=== PATIENT | male | born 1965 ===

== ENCOUNTER 2018-06-24 03:59 | Inpatient (IN) ==
[2018-06-24] MEDS ORDERED: CEFEPIME 2,000 MG in SODIUM CHLORIDE 0.9% 100 ML IV STA (05:04)
[2018-06-24] MEDS ORDERED: ONDANSETRON 4 MG/2 ML VIAL IV PRN (09:41)
[2018-06-24] MEDS ORDERED: ACETAMINOPHEN 325 MG TABLET PO PRN (09:41)
[2018-06-24] MEDS ORDERED: GLUCAGON 1 MG VIAL IM PRN (09:47)
[2018-06-24] MEDS ORDERED: DEXTROSE 50% 25 GM/50 ML VIAL IV PRN (09:47)
[2018-06-24] MEDS: SODIUM CHLORIDE 0.9% 1,000 ML IV SCH ×2 (10:32→18:34)
[2018-06-24] MEDS: INSULIN LISPRO 100 UNIT/ML SUBCUT SCH ×5 (10:44→20:58)
[2018-06-24] MEDS: PANTOPRAZOLE 40 MG TABLET PO SCH (10:44)
[2018-06-24 10:50] LABS: Basophils % 0.4 % (0.0-0.8); Eosinophils # 0.3 10*3/uL (0.0-0.87); Eosinophils % 3.4 % (0.00-10.9); Hematocrit 35.5 VOL% (42.0-52.0); Hemoglobin 12.1 GM/DL (14.0-18.0); Immature Granulocytes % 0.5 %; Immature Granulocytes Absolute 0.05 #; Lymphocytes % 10.5 % (21.2-54.2); Mean Corpuscular HGB Conc 34.1 GM/DL (32-36); Mean Corpuscular Hemoglobin 31 PG (27-34); Mean Corpuscular Volume 89.6 FL (87-102); Mean Platelet Volume 11.6 FL (9.6-12.0); Monocytes # 0.6 10*3/uL (0.11-0.8); Monocytes % 6.4 % (1.7-12.7); Neutrophils # 7.7 10*3/uL (1.4-7.4); Neutrophils % 78.8 % (38.7-73.9); Platelet Count 209 T/CUMM (130-400); Red Blood Count 3.96 MC/CUMM (3.8-5.5); Red Cell Distribution Width 13.6 % (9.3-17.3); White Blood Count 9.8 T/CUMM (4-12)
[2018-06-24 11:24] LABS: Alanine Aminotransferase 12 U/L (16-61); Albumin 2.2 G/DL (3.4-5.0); Alkaline Phosphatase 81 U/L (45-117); Aspartate Amino Transferase 13 U/L (0-37); Bilirubin,Total < 0.39 MG/DL (0.2-1.0); Blood Urea Nitrogen 31 MG/DL (7-18); Calcium 8.4 MG/DL (8.5-10.1); Glucose 297 MG/DL (74-106); Osmolality,Calculated 300.1 MOS/KG (273-304); Potassium 3.9 MMOL/L (3.5-5.1); Sodium 142 MMOL/L (136-145); Total Protein 6.1 G/DL (6.4-8.3)
[2018-06-24 12:22] LABS: Apearance,Urine CLEAR (Clear); Bacteria,Urine Occasional /HPF (Few); Bilirubin,Urine Negative (Negative); Blood, Urine Small mg/dL (Negative); Glucose,Urine (UA) >=500 mg/dL (Negative); Ketones,Urine Negative (Negative); Mucus,Urine Occasional /LPF (Occasional); Nitrite,Urine Negative (Negative); Protein,Urine >=500 MG/DL; RBC,Urine 5 /HPF (0-4); Squamous Epithelial Cell,Urine Occasional /HPF (0-10); Urine Color Straw (Yellow); Urine Specific Gravity 1.011 (1.001-1.035); Urine Urobilinogen < 2.0 EU/DL (0.2-1.0); WBC,Urine 20 /HPF (0-6)
[2018-06-24] MEDS: sitaGLIPtin 25 MG TABLET PO SCH (13:25)
[2018-06-24] MEDS: ENOXAPARIN 30 MG/0.3 ML SYRINGE SUBCUT SCH (13:26)
[2018-06-24] MEDS: INSULIN GLARGINE 100 UNIT/ML SUBCUT SCH ×2 (13:26→20:56)
[2018-06-24] MEDS: MORPHINE 4 MG/1 ML VIAL IV PRN ×2 (13:29→22:08)
[2018-06-24] MEDS: CEFEPIME 2,000 MG in SYRINGE 1 EACH IV SCH (18:30)
[2018-06-24] MEDS ORDERED: hydrALAZINE 20 MG/1 ML VIAL IV PRN (20:24)
[2018-06-24] MEDS: CLOTRIMAZOLE/BETAMETHASONE CREAM 15 GM TUBE TOP SCH (20:58)
[2018-06-24] MEDS: SIMVASTATIN 40 MG TABLET PO SCH (20:58)
[2018-06-25] MEDS: SODIUM CHLORIDE 0.9% 1,000 ML IV SCH (01:50)
[2018-06-25 03:33] LABS: Basophils # 0.1 10*3/uL (0.0-0.2); Basophils % 0.5 % (0.0-0.8); Eosinophils # 0.3 10*3/uL (0.0-0.87); Eosinophils % 3.4 % (0.00-10.9); Hematocrit 32.9 VOL% (42.0-52.0); Hemoglobin 11.4 GM/DL (14.0-18.0); Immature Granulocytes % 0.5 %; Immature Granulocytes Absolute 0.05 #; Lymphocytes # 1.4 10*3/uL (1.4-4.0); Lymphocytes % 13.5 % (21.2-54.2); Mean Corpuscular HGB Conc 34.7 GM/DL (32-36); Mean Corpuscular Hemoglobin 31 PG (27-34); Mean Corpuscular Volume 88.7 FL (87-102); Mean Platelet Volume 11.6 FL (9.6-12.0); Monocytes # 0.7 10*3/uL (0.11-0.8); Monocytes % 6.8 % (1.7-12.7); Neutrophils # 7.6 10*3/uL (1.4-7.4); Neutrophils % 75.3 % (38.7-73.9); Platelet Count 188 T/CUMM (130-400); Red Blood Count 3.71 MC/CUMM (3.8-5.5); Red Cell Distribution Width 13.8 % (9.3-17.3); White Blood Count 10.1 T/CUMM (4-12)
[2018-06-25 04:13] LABS: Calcium 8.2 MG/DL (8.5-10.1); Osmolality,Calculated 290.1 MOS/KG (273-304); Potassium 3.5 MMOL/L (3.5-5.1); Risk Ratio 3.48; VLDL CHOLESTEROL 23.2 MG/DL
[2018-06-25] MEDS: CEFEPIME 2,000 MG in SYRINGE 1 EACH IV SCH ×2 (05:40→17:30)
[2018-06-25] MEDS: MORPHINE 4 MG/1 ML VIAL IV PRN ×3 (09:38→21:12)
[2018-06-25] MEDS: INSULIN GLARGINE 100 UNIT/ML SUBCUT SCH ×2 (09:38→20:54)
[2018-06-25] MEDS: LUBIPROSTONE 24 MCG CAPSULE PO SCH (09:39)
[2018-06-25] MEDS: sitaGLIPtin 25 MG TABLET PO SCH (09:39)
[2018-06-25] MEDS: FENOFIBRATE 145 MG TABLET PO SCH (09:39)
[2018-06-25] MEDS: PANTOPRAZOLE 40 MG TABLET PO SCH (09:39)
[2018-06-25] MEDS: ASPIRIN EC 81 MG TABLET PO SCH (09:40)
[2018-06-25] MEDS: CHLORTHALIDONE 25 MG TABLET PO SCH (09:44)
[2018-06-25] MEDS: INSULIN LISPRO 100 UNIT/ML SUBCUT SCH ×6 (09:45→20:56)
[2018-06-25] MEDS: CLOTRIMAZOLE/BETAMETHASONE CREAM 15 GM TUBE TOP SCH ×2 (09:53→20:57)
[2018-06-25] MEDS ORDERED: NICOTINE 21 MG/24 HR PATCH TRANSDERM PRN (10:14)
[2018-06-25] MEDS: ENOXAPARIN 30 MG/0.3 ML SYRINGE SUBCUT SCH (12:10)
[2018-06-25] MEDS: amLODIPine 5 MG TABLET PO SCH ×2 (12:10→20:51)
[2018-06-25] MEDS: SIMVASTATIN 40 MG TABLET PO SCH (20:51)
[2018-06-26] MEDS: SODIUM CHLORIDE 0.9% 1,000 ML IV SCH ×4 (00:11→18:40)
[2018-06-26] MEDS: MORPHINE 4 MG/1 ML VIAL IV PRN (03:33)
[2018-06-26 05:48] LABS: Basophils % 0.4 % (0.0-0.8); Eosinophils # 0.3 10*3/uL (0.0-0.87); Eosinophils % 2.2 % (0.00-10.9); Hematocrit 32.6 VOL% (42.0-52.0); Immature Granulocytes % 0.5 %; Immature Granulocytes Absolute 0.06 #; Lymphocytes # 1.2 10*3/uL (1.4-4.0); Lymphocytes % 10.8 % (21.2-54.2); Mean Corpuscular HGB Conc 33.7 GM/DL (32-36); Mean Corpuscular Hemoglobin 30 PG (27-34); Mean Corpuscular Volume 89.8 FL (87-102); Mean Platelet Volume 11.7 FL (9.6-12.0); Monocytes # 0.9 10*3/uL (0.11-0.8); Monocytes % 7.7 % (1.7-12.7); Neutrophils # 8.8 10*3/uL (1.4-7.4); Neutrophils % 78.4 % (38.7-73.9); Platelet Count 184 T/CUMM (130-400); Red Blood Count 3.63 MC/CUMM (3.8-5.5); Red Cell Distribution Width 13.3 % (9.3-17.3); White Blood Count 11.2 T/CUMM (4-12)
[2018-06-26] MEDS: CEFEPIME 2,000 MG in SYRINGE 1 EACH IV SCH ×2 (05:59→21:55)
[2018-06-26 06:05] LABS: Calcium 7.7 MG/DL (8.5-10.1); Potassium 3.1 MMOL/L (3.5-5.1)
[2018-06-26] MEDS ORDERED: ceFAZolin 2,000 MG in SYRINGE 1 EACH IV ONE (06:30)
[2018-06-26] MEDS ORDERED: ceFAZolin 2,000 MG in PREMIX 1 EACH IV ONE (07:30)
[2018-06-26] MEDS: INSULIN LISPRO 100 UNIT/ML SUBCUT SCH ×6 (07:50→22:46)
[2018-06-26] MEDS ORDERED: ROPIVACAINE 0.5% 30 ML VIAL ONE (07:51)
[2018-06-26] MEDS ORDERED: PROPOFOL 200 MG/20 ML VIAL IV ONE (08:55)
[2018-06-26] MEDS ORDERED: SEVOFLURANE 1 UNIT/15 MINUTE INH ONE (08:55)
[2018-06-26] MEDS ORDERED: ONDANSETRON 4 MG/2 ML VIAL ONE ×2 (08:55→08:57)
[2018-06-26] MEDS ORDERED: fentaNYL 100 MCG/2 ML VIAL ONE (08:55)
[2018-06-26] MEDS ORDERED: HYDROmorphone 2 MG/1 ML VIAL ONE (08:57)
[2018-06-26] MEDS ORDERED: oxyCODONE/ACETAMINOPHEN 5-325 MG TABLET PO PRN (08:58)
[2018-06-26] MEDS ORDERED: ENOXAPARIN 40 MG/0.4 ML SYRINGE SUBCUT SCH (09:00)
[2018-06-26] MEDS: HYDROmorphone 2 MG/1 ML VIAL IV PRN ×4 (09:00→09:25)
[2018-06-26] MEDS ORDERED: ONDANSETRON 4 MG/2 ML VIAL IV PRN (09:03)
[2018-06-26] MEDS: LUBIPROSTONE 24 MCG CAPSULE PO SCH (11:04)
[2018-06-26] MEDS: PANTOPRAZOLE 40 MG TABLET PO SCH (11:04)
[2018-06-26] MEDS: amLODIPine 5 MG TABLET PO SCH ×2 (11:05→22:19)
[2018-06-26] MEDS: oxyCODONE/ACETAMINOPHEN 5-325 MG TABLET PO PRN ×3 (11:05→22:26)
[2018-06-26] MEDS: CHLORTHALIDONE 25 MG TABLET PO SCH (11:06)
[2018-06-26] MEDS: hydrALAZINE 10 MG TABLET PO SCH ×2 (11:07→22:19)
[2018-06-26] MEDS: ASPIRIN EC 81 MG TABLET PO SCH (11:10)
[2018-06-26] MEDS ORDERED: POTASSIUM CHLORIDE 20 MEQ TABLET PO ONE (11:30)
[2018-06-26] MEDS: INSULIN GLARGINE 100 UNIT/ML SUBCUT SCH ×2 (11:40→22:26)
[2018-06-26] MEDS: FENOFIBRATE 145 MG TABLET PO SCH (13:16)
[2018-06-26] MEDS: sitaGLIPtin 25 MG TABLET PO SCH (13:16)
[2018-06-26] MEDS: CLOTRIMAZOLE/BETAMETHASONE CREAM 15 GM TUBE TOP SCH ×2 (13:19→22:20)
[2018-06-26] MEDS: SIMVASTATIN 40 MG TABLET PO SCH (22:19)
[2018-06-27] MEDS: SODIUM CHLORIDE 0.9% 1,000 ML IV SCH (04:53)
[2018-06-27] MEDS: oxyCODONE/ACETAMINOPHEN 5-325 MG TABLET PO PRN ×3 (06:34→21:39)
[2018-06-27 07:06] LABS: Basophils % 0.3 % (0.0-0.8); Eosinophils # 0.3 10*3/uL (0.0-0.87); Eosinophils % 1.9 % (0.00-10.9); Hematocrit 32.6 VOL% (42.0-52.0); Hemoglobin 10.9 GM/DL (14.0-18.0); Immature Granulocytes % 0.5 %; Immature Granulocytes Absolute 0.07 #; Lymphocytes # 1.2 10*3/uL (1.4-4.0); Lymphocytes % 8.7 % (21.2-54.2); Mean Corpuscular HGB Conc 33.4 GM/DL (32-36); Mean Corpuscular Hemoglobin 30 PG (27-34); Mean Corpuscular Volume 89.8 FL (87-102); Mean Platelet Volume 11.4 FL (9.6-12.0); Monocytes # 0.9 10*3/uL (0.11-0.8); Monocytes % 6.8 % (1.7-12.7); Neutrophils % 81.8 % (38.7-73.9); Platelet Count 187 T/CUMM (130-400); Red Blood Count 3.63 MC/CUMM (3.8-5.5); Red Cell Distribution Width 13.5 % (9.3-17.3); White Blood Count 13.5 T/CUMM (4-12)
[2018-06-27 07:35] LABS: Calcium 7.3 MG/DL (8.5-10.1); Osmolality,Calculated 280.8 MOS/KG (273-304); Potassium 3.4 MMOL/L (3.5-5.1)
[2018-06-27] MEDS: INSULIN LISPRO 100 UNIT/ML SUBCUT SCH ×6 (08:22→22:08)
[2018-06-27] MEDS: PANTOPRAZOLE 40 MG TABLET PO SCH (08:23)
[2018-06-27] MEDS: sitaGLIPtin 25 MG TABLET PO SCH (08:23)
[2018-06-27] MEDS: INSULIN GLARGINE 100 UNIT/ML SUBCUT SCH ×2 (08:23→22:01)
[2018-06-27] MEDS: hydrALAZINE 10 MG TABLET PO SCH ×2 (08:23→21:40)
[2018-06-27] MEDS: FENOFIBRATE 145 MG TABLET PO SCH (08:24)
[2018-06-27] MEDS: CHLORTHALIDONE 25 MG TABLET PO SCH (08:24)
[2018-06-27] MEDS: CEFEPIME 2,000 MG in SYRINGE 1 EACH IV SCH ×2 (08:24→21:30)
[2018-06-27] MEDS: amLODIPine 5 MG TABLET PO SCH ×2 (08:24→21:40)
[2018-06-27] MEDS: ASPIRIN EC 81 MG TABLET PO SCH (08:24)
[2018-06-27] MEDS: LUBIPROSTONE 24 MCG CAPSULE PO SCH (08:24)
[2018-06-27] MEDS: DOCUSATE SODIUM 100 MG CAPSULE PO PRN ×2 (08:24→21:40)
[2018-06-27] MEDS: CLOTRIMAZOLE/BETAMETHASONE CREAM 15 GM TUBE TOP SCH ×2 (08:28→22:04)
[2018-06-27] MEDS ORDERED: POTASSIUM CHLORIDE 20 MEQ TABLET PO ONE (12:30)
[2018-06-27] MEDS ORDERED: VANCOMYCIN INJ 1,500 MG in SODIUM CHLORIDE 0.9% 500 ML IV ONE (12:30)
[2018-06-27] MEDS ORDERED: BISACODYL 10 MG SUPP RECTAL ONE (18:27)
[2018-06-27] MEDS: LACTULOSE 20 GM/30 ML UDCUP PO PRN (18:35)
[2018-06-27] MEDS: SIMVASTATIN 40 MG TABLET PO SCH (21:40)
[2018-06-28] MEDS ORDERED: ALUMINUM/MAGNES/SIMETH MAX STR 30 ML UDCUP PO PRN (01:57)
[2018-06-28] MEDS: INSULIN LISPRO 100 UNIT/ML SUBCUT SCH ×3 (07:45→12:15)
[2018-06-28] MEDS: amLODIPine 5 MG TABLET PO SCH (10:20)
[2018-06-28] MEDS: sitaGLIPtin 25 MG TABLET PO SCH (10:20)
[2018-06-28] MEDS: CHLORTHALIDONE 25 MG TABLET PO SCH (10:20)
[2018-06-28] MEDS: hydrALAZINE 10 MG TABLET PO SCH (10:20)
[2018-06-28] MEDS: DOCUSATE SODIUM 100 MG CAPSULE PO PRN (10:20)
[2018-06-28] MEDS: LUBIPROSTONE 24 MCG CAPSULE PO SCH (10:20)
[2018-06-28] MEDS: PANTOPRAZOLE 40 MG TABLET PO SCH (10:20)
[2018-06-28] MEDS: FENOFIBRATE 145 MG TABLET PO SCH (10:20)
[2018-06-28] MEDS: INSULIN GLARGINE 100 UNIT/ML SUBCUT SCH (10:20)
[2018-06-28] MEDS: LACTULOSE 20 GM/30 ML UDCUP PO PRN (10:21)
[2018-06-28] MEDS: ASPIRIN EC 81 MG TABLET PO SCH (10:21)
[2018-06-28] MEDS: CEFEPIME 2,000 MG in SYRINGE 1 EACH IV SCH (10:21)
[2018-06-28] MEDS: CLOTRIMAZOLE/BETAMETHASONE CREAM 15 GM TUBE TOP SCH (10:22)
[2018-06-28 11:43] VITALS: BP 158/83
== END 2018-06-28 14:38 | disposition home or self-care (01) | DRG 728 ==
LOC: EDUNIT# → EDBD → N.ED 03:59 → N.EDINP 08:44 → N.2E 10:06
PROVIDERS: ADMIT Internal Medicine; ATTEND Internal Medicine

== ENCOUNTER 2019-02-03 23:20 | Inpatient (IN) ==
[2019-02-04] MEDS ORDERED: ONDANSETRON 4 MG/2 ML VIAL IV PRN (02:25)
[2019-02-04] MEDS ORDERED: ZALEPLON 5 MG CAPSULE PO PRN (02:25)
[2019-02-04] MEDS ORDERED: GLUCAGON 1 MG VIAL IM PRN (02:30)
[2019-02-04] MEDS ORDERED: DEXTROSE 50% 25 GM/50 ML VIAL IV PRN (02:30)
[2019-02-04] MEDS: SODIUM CHLORIDE 0.9% 1,000 ML IV SCH (02:52)
[2019-02-04 02:57] LABS: Basophils % 0.2 % (0.0-0.8); Eosinophils # 0.3 10*3/uL (0.0-0.87); Hematocrit 31.2 VOL% (42.0-52.0); Immature Granulocytes % 0.8 %; Immature Granulocytes Absolute 0.14 #; Lymphocytes # 1.7 10*3/uL (1.4-4.0); Lymphocytes % 10.4 % (21.2-54.2); Mean Corpuscular HGB Conc 32.1 GM/DL (32-36); Mean Corpuscular Hemoglobin 30 PG (27-34); Mean Corpuscular Volume 92.6 FL (87-102); Mean Platelet Volume 11.1 FL (9.6-12.0); Neutrophils # 13.3 10*3/uL (1.4-7.4); Neutrophils % 80.6 % (38.7-73.9); Platelet Count 216 T/CUMM (130-400); Red Blood Count 3.37 MC/CUMM (3.8-5.5); Red Cell Distribution Width 14.5 % (9.3-17.3); White Blood Count 16.5 T/CUMM (4-12)
[2019-02-04 03:16] LABS: Albumin 1.1 G/DL (3.4-5.0); Bilirubin,Total 0.4 MG/DL (0.2-1.0); Osmolality,Calculated 287.4 MOS/KG (273-304); Total Protein 4.4 G/DL (6.4-8.3)
[2019-02-04] MEDS: PIPERACILLIN/TAZOBACTAM 3,375 MG in SODIUM CHLORIDE 0.9% 100 ML IV SCH ×2 (04:42→17:06)
[2019-02-04] MEDS ORDERED: POTASSIUM CHLORIDE 20 MEQ TABLET PO ONE ×2 (06:38→11:00)
[2019-02-04] MEDS: INSULIN LISPRO 100 UNIT/ML SUBCUT SCH ×6 (08:36→20:54)
[2019-02-04] MEDS: FENOFIBRATE 145 MG TABLET PO SCH (09:18)
[2019-02-04] MEDS: PANTOPRAZOLE 40 MG TABLET PO SCH (09:19)
[2019-02-04] MEDS: METOPROLOL SUCCINATE XL 50 MG TABLET PO SCH (09:19)
[2019-02-04] MEDS: ASPIRIN EC 81 MG TABLET PO SCH (09:19)
[2019-02-04] MEDS: GABAPENTIN 300 MG CAPSULE PO SCH (09:19)
[2019-02-04] MEDS: amLODIPine 5 MG TABLET PO SCH ×2 (09:19→20:53)
[2019-02-04] MEDS: POTASSIUM CHLORIDE 20 MEQ TABLET PO PRN ×2 (09:19→14:59)
[2019-02-04] MEDS: sitaGLIPtin 25 MG TABLET PO SCH (09:19)
[2019-02-04] MEDS: LUBIPROSTONE 24 MCG CAPSULE PO SCH (09:19)
[2019-02-04] MEDS: ACETAMINOPHEN 325 MG TABLET PO PRN ×2 (09:26→17:16)
[2019-02-04] MEDS ORDERED: MAGNESIUM SULF RIDER 4 GM in PREMIX 1 EACH IV PRN (09:26)
[2019-02-04] MEDS ORDERED: MAGNESIUM SULF RIDER 2 GM in PREMIX 1 EACH IV PRN (09:26)
[2019-02-04 13:11] LABS: Apearance,Urine CLEAR (Clear); Bacteria,Urine Occasional /HPF (Few); Bilirubin,Urine Negative (Negative); Blood, Urine Small mg/dL (Negative); Glucose,Urine (UA) >=500 mg/dL (Negative); Ketones,Urine Negative (Negative); Mucus,Urine Occasional /LPF (Occasional); Nitrite,Urine Negative (Negative); Protein,Urine >=500 MG/DL; RBC,Urine 1 /HPF (0-4); Urine Color Yellow (Yellow); Urine Specific Gravity 1.021 (1.001-1.035); Urine Urobilinogen < 2.0 EU/DL (0.2-1.0); WBC,Urine 7 /HPF (0-6)
[2019-02-04] MEDS: SIMVASTATIN 40 MG TABLET PO SCH (20:53)
[2019-02-04] MEDS: GABAPENTIN 600 MG TABLET PO SCH (20:53)
[2019-02-05] MEDS: SODIUM CHLORIDE 0.9% 1,000 ML IV SCH (02:45)
[2019-02-05 04:58] LABS: Basophils # 0.1 10*3/uL (0.0-0.2); Basophils % 0.3 % (0.0-0.8); Eosinophils # 0.3 10*3/uL (0.0-0.87); Hematocrit 29.6 VOL% (42.0-52.0); Hemoglobin 9.4 GM/DL (14.0-18.0); Immature Granulocytes % 1.1 %; Immature Granulocytes Absolute 0.16 #; Lymphocytes # 1.6 10*3/uL (1.4-4.0); Lymphocytes % 11.4 % (21.2-54.2); Mean Corpuscular HGB Conc 31.8 GM/DL (32-36); Mean Corpuscular Hemoglobin 30 PG (27-34); Mean Corpuscular Volume 93.7 FL (87-102); Mean Platelet Volume 10.9 FL (9.6-12.0); Monocytes % 6.7 % (1.7-12.7); Neutrophils # 11.3 10*3/uL (1.4-7.4); Neutrophils % 78.5 % (38.7-73.9); Platelet Count 220 T/CUMM (130-400); Red Blood Count 3.16 MC/CUMM (3.8-5.5); Red Cell Distribution Width 14.5 % (9.3-17.3); White Blood Count 14.4 T/CUMM (4-12)
[2019-02-05] MEDS: PIPERACILLIN/TAZOBACTAM 3,375 MG in SODIUM CHLORIDE 0.9% 100 ML IV SCH (05:02)
[2019-02-05 05:25] LABS: Calcium 7.1 MG/DL (8.5-10.1); Osmolality,Calculated 285.5 MOS/KG (273-304); Potassium 3.6 MMOL/L (3.5-5.1)
[2019-02-05] MEDS: INSULIN LISPRO 100 UNIT/ML SUBCUT SCH ×6 (08:00→20:36)
[2019-02-05] MEDS: LUBIPROSTONE 24 MCG CAPSULE PO SCH ×2 (08:40→12:20)
[2019-02-05] MEDS: ASPIRIN EC 81 MG TABLET PO SCH ×2 (08:40→12:20)
[2019-02-05] MEDS: PANTOPRAZOLE 40 MG TABLET PO SCH ×2 (08:41→12:20)
[2019-02-05] MEDS: sitaGLIPtin 25 MG TABLET PO SCH (08:41)
[2019-02-05] MEDS: GABAPENTIN 300 MG CAPSULE PO SCH ×2 (08:41→12:20)
[2019-02-05] MEDS: FENOFIBRATE 145 MG TABLET PO SCH ×2 (08:41→12:20)
[2019-02-05] MEDS: MORPHINE 4 MG/1 ML VIAL IV PRN (10:34)
[2019-02-05] MEDS: amLODIPine 5 MG TABLET PO SCH ×2 (12:20→20:37)
[2019-02-05] MEDS: METOPROLOL SUCCINATE XL 50 MG TABLET PO SCH (12:20)
[2019-02-05] MEDS: POTASSIUM CHLORIDE 20 MEQ TABLET PO PRN (12:20)
[2019-02-05] MEDS: CEFTAROLINE 300 MG in SODIUM CHLORIDE 0.9% 100 ML IV SCH ×2 (12:21→22:20)
[2019-02-05] MEDS ORDERED: SODIUM BICARB INJ 100 MEQ in STERILE WATER INJ 400 ML IV ONE (13:02)
[2019-02-05] MEDS: GABAPENTIN 600 MG TABLET PO SCH (20:37)
[2019-02-05] MEDS: SIMVASTATIN 40 MG TABLET PO SCH (20:37)
[2019-02-06 04:40] LABS: Basophils # 0.1 10*3/uL (0.0-0.2); Basophils % 0.4 % (0.0-0.8); Eosinophils # 0.3 10*3/uL (0.0-0.87); Eosinophils % 2.2 % (0.00-10.9); Hematocrit 28.5 VOL% (42.0-52.0); Hemoglobin 9.2 GM/DL (14.0-18.0); Immature Granulocytes % 0.7 %; Immature Granulocytes Absolute 0.08 #; Lymphocytes # 1.9 10*3/uL (1.4-4.0); Lymphocytes % 16.1 % (21.2-54.2); Mean Corpuscular HGB Conc 32.3 GM/DL (32-36); Mean Corpuscular Hemoglobin 30 PG (27-34); Mean Corpuscular Volume 93.1 FL (87-102); Monocytes # 0.8 10*3/uL (0.11-0.8); Monocytes % 6.7 % (1.7-12.7); Neutrophils # 8.7 10*3/uL (1.4-7.4); Neutrophils % 73.9 % (38.7-73.9); Platelet Count 242 T/CUMM (130-400); Red Blood Count 3.06 MC/CUMM (3.8-5.5); Red Cell Distribution Width 14.1 % (9.3-17.3); White Blood Count 11.7 T/CUMM (4-12)
[2019-02-06 05:04] LABS: Calcium 7.1 MG/DL (8.5-10.1); Osmolality,Calculated 290.4 MOS/KG (273-304); Potassium 3.3 MMOL/L (3.5-5.1)
[2019-02-06] MEDS: INSULIN LISPRO 100 UNIT/ML SUBCUT SCH ×5 (07:49→20:58)
[2019-02-06 08:14] LABS: Albumin 0.9 G/DL (3.4-5.0); Total Protein 4.5 G/DL (6.4-8.3)
[2019-02-06] MEDS: sitaGLIPtin 25 MG TABLET PO SCH (09:06)
[2019-02-06] MEDS: LUBIPROSTONE 24 MCG CAPSULE PO SCH (09:06)
[2019-02-06] MEDS: FENOFIBRATE 145 MG TABLET PO SCH (09:06)
[2019-02-06] MEDS: METOPROLOL SUCCINATE XL 50 MG TABLET PO SCH (09:07)
[2019-02-06] MEDS: PANTOPRAZOLE 40 MG TABLET PO SCH (09:07)
[2019-02-06] MEDS: amLODIPine 5 MG TABLET PO SCH ×2 (09:07→20:54)
[2019-02-06] MEDS: GABAPENTIN 300 MG CAPSULE PO SCH (09:08)
[2019-02-06] MEDS: ASPIRIN EC 81 MG TABLET PO SCH (09:08)
[2019-02-06] MEDS: INSULIN GLARGINE 100 UNIT/ML SUBCUT SCH (10:23)
[2019-02-06] MEDS: SODIUM CHLORIDE 0.9% 1,000 ML IV SCH ×2 (11:05→11:06)
[2019-02-06 11:57] LABS: Protein/Creatinine Ratio,Urine 16.5 RATIO
[2019-02-06] MEDS: CEFTAROLINE 300 MG in SODIUM CHLORIDE 0.9% 100 ML IV SCH ×2 (12:03→22:37)
[2019-02-06 12:10] LABS: Apearance,Urine CLEAR (Clear); Bacteria,Urine Occasional /HPF (Few); Bilirubin,Urine Negative (Negative); Blood, Urine Small mg/dL (Negative); Glucose,Urine (UA) >=500 mg/dL (Negative); Ketones,Urine 5 mg/dL (Negative); Mucus,Urine Occasional /LPF (Occasional); Nitrite,Urine Negative (Negative); Protein,Urine >=500 MG/DL; RBC,Urine 1 /HPF (0-4); Squamous Epithelial Cell,Urine Occasional /HPF (0-10); Urine Color Yellow (Yellow); Urine Specific Gravity 1.008 (1.001-1.035); Urine Urobilinogen < 2.0 EU/DL (0.2-1.0); WBC,Urine 5 /HPF (0-6)
[2019-02-06] MEDS: POTASSIUM CHLORIDE 20 MEQ TABLET PO PRN ×3 (12:41→20:54)
[2019-02-06] MEDS: MORPHINE 4 MG/1 ML VIAL IV PRN (19:38)
[2019-02-06] MEDS: GABAPENTIN 600 MG TABLET PO SCH (20:54)
[2019-02-06] MEDS: SIMVASTATIN 40 MG TABLET PO SCH (20:54)
[2019-02-07] MEDS: MORPHINE 4 MG/1 ML VIAL IV PRN ×2 (01:16→05:49)
[2019-02-07 04:25] LABS: Basophils # 0.1 10*3/uL (0.0-0.2); Basophils % 0.5 % (0.0-0.8); Eosinophils # 0.4 10*3/uL (0.0-0.87); Eosinophils % 3.5 % (0.00-10.9); Hematocrit 28.4 VOL% (42.0-52.0); Immature Granulocytes % 0.9 %; Immature Granulocytes Absolute 0.09 #; Lymphocytes # 1.6 10*3/uL (1.4-4.0); Mean Corpuscular HGB Conc 31.7 GM/DL (32-36); Mean Corpuscular Hemoglobin 30 PG (27-34); Mean Corpuscular Volume 93.1 FL (87-102); Mean Platelet Volume 10.8 FL (9.6-12.0); Monocytes # 0.8 10*3/uL (0.11-0.8); Monocytes % 7.5 % (1.7-12.7); Neutrophils # 7.1 10*3/uL (1.4-7.4); Neutrophils % 71.6 % (38.7-73.9); Platelet Count 257 T/CUMM (130-400); Red Blood Count 3.05 MC/CUMM (3.8-5.5); Red Cell Distribution Width 14.1 % (9.3-17.3)
[2019-02-07 04:58] LABS: Calcium 7.6 MG/DL (8.5-10.1); Osmolality,Calculated 291.1 MOS/KG (273-304); Potassium 3.5 MMOL/L (3.5-5.1)
[2019-02-07] MEDS: INSULIN LISPRO 100 UNIT/ML SUBCUT SCH ×2 (07:02→11:46)
[2019-02-07 08:12] LABS: Albumin (UPER) 285.6 MG/DL; Albumin (UPER) Rel% 46.9 %; Alpha 1 (UPER) 80.4 MG/DL; Alpha 1 (UPER) Rel% 13.2 %; Alpha 2 (UPER) 76.1 MG/DL; Alpha 2 (UPER) Rel % 12.5 %; Beta (UPER) Rel % 15.1 %; Gamma (UPER) 74.9 MG/DL
[2019-02-07 08:13] LABS: Gamma (UPER) Rel % 12.3 %
[2019-02-07] MEDS: INSULIN GLARGINE 100 UNIT/ML SUBCUT SCH (09:12)
[2019-02-07] MEDS: LUBIPROSTONE 24 MCG CAPSULE PO SCH (09:13)
[2019-02-07] MEDS: FENOFIBRATE 145 MG TABLET PO SCH (09:13)
[2019-02-07] MEDS: METOPROLOL SUCCINATE XL 50 MG TABLET PO SCH (09:13)
[2019-02-07] MEDS: PANTOPRAZOLE 40 MG TABLET PO SCH (09:13)
[2019-02-07] MEDS: amLODIPine 5 MG TABLET PO SCH (09:13)
[2019-02-07] MEDS: GABAPENTIN 300 MG CAPSULE PO SCH (09:13)
[2019-02-07] MEDS: ASPIRIN EC 81 MG TABLET PO SCH (09:13)
[2019-02-07 11:14] VITALS: BP 134/77
[2019-02-07] MEDS: CEFTAROLINE 300 MG in SODIUM CHLORIDE 0.9% 100 ML IV SCH (11:45)
== END 2019-02-07 15:08 | disposition home or self-care (01) | DRG 988 ==
LOC: SUATTDRO 02-04 01:06 → N.5E 02-04 01:06
PROVIDERS: ADMIT Internal Medicine; ATTEND Internal Medicine

== ENCOUNTER 2019-06-08 20:40 | Inpatient (IN) ==
[2019-06-08] MEDS ORDERED: CEFEPIME 2,000 MG in SODIUM CHLORIDE 0.9% 100 ML IV STA (20:58)
[2019-06-08] MEDS ORDERED: SODIUM CHLORIDE 0.9% 1,000 ML IV STA (20:58)
[2019-06-08 22:17] LABS: Basophils % 0.4 % (0.0-0.8); Eosinophils # 0.2 10*3/uL (0.0-0.87); Eosinophils % 2.4 % (0.00-10.9); Hematocrit 29.5 VOL% (42.0-52.0); Hemoglobin 9.2 GM/DL (14.0-18.0); Immature Granulocytes % 0.6 %; Immature Granulocytes Absolute 0.06 #; Lymphocytes # 1.2 10*3/uL (1.4-4.0); Lymphocytes % 11.6 % (21.2-54.2); Mean Corpuscular HGB Conc 31.2 GM/DL (32-36); Mean Corpuscular Volume 92.8 FL (87-102); Mean Platelet Volume 11.1 FL (9.6-12.0); Monocytes % 6.3 % (1.7-12.7); Neutrophils % 78.7 % (38.7-73.9); Platelet Count 198 T/CUMM (130-400); Red Blood Count 3.18 MC/CUMM (3.8-5.5); Red Cell Distribution Width 14.3 % (9.3-17.3)
[2019-06-08 22:27] LABS: Apearance,Urine CLEAR (Clear); Bacteria,Urine Occasional /HPF (Few); Bilirubin,Urine Negative (Negative); Blood, Urine Small mg/dL (Negative); Glucose,Urine (UA) >=500 mg/dL (Negative); Ketones,Urine Negative (Negative); Mucus,Urine Occasional /LPF (Occasional); Nitrite,Urine Negative (Negative); Protein,Urine >=500 MG/DL; RBC,Urine 5 /HPF (0-4); Squamous Epithelial Cell,Urine Occasional /HPF (0-10); Urine Color Straw (Yellow); Urine Specific Gravity 1.012 (1.001-1.035); Urine Urobilinogen < 2.0 EU/DL (0.2-1.0); WBC,Urine 8 /HPF (0-6)
[2019-06-08 22:36] LABS: Albumin 1.7 G/DL (3.4-5.0); Bilirubin,Total 0.4 MG/DL (0.2-1.0); Calcium 7.2 MG/DL (8.5-10.1); Osmolality,Calculated 313.3 MOS/KG (273-304); Total Protein 5.9 G/DL (6.4-8.3)
[2019-06-09] MEDS ORDERED: DEXTROSE 50% 25 GM/50 ML VIAL IV PRN (04:38)
[2019-06-09] MEDS ORDERED: ONDANSETRON 4 MG/2 ML VIAL IV PRN ×2 (04:38→12:13)
[2019-06-09] MEDS ORDERED: GLUCAGON 1 MG VIAL IM PRN (04:38)
[2019-06-09] MEDS ORDERED: DOCUSATE SODIUM 100 MG CAPSULE PO PRN (04:38)
[2019-06-09] MEDS ORDERED: SODIUM CHLORIDE 0.9% 1,000 ML IV SCH (04:38)
[2019-06-09] MEDS: HEPARIN 5,000 UNIT/1 ML VIAL SUBCUT SCH ×3 (05:32→21:03)
[2019-06-09] MEDS: INSULIN LISPRO 100 UNIT/ML SUBCUT SCH ×2 (09:16→17:03)
[2019-06-09] MEDS ORDERED: ceFAZolin 1,000 MG in SYRINGE 1 EACH IV ONE (10:45)
[2019-06-09] MEDS ORDERED: LIDOCAINE 1% 20 ML VIAL ONE (11:20)
[2019-06-09] MEDS ORDERED: PROPOFOL 200 MG/20 ML VIAL IV ONE (12:02)
[2019-06-09] MEDS ORDERED: MIDAZOLAM 2 MG/2 ML VIAL ONE (12:03)
[2019-06-09] MEDS ORDERED: SEVOFLURANE 1 UNIT/15 MINUTE INH ONE (12:03)
[2019-06-09] MEDS ORDERED: fentaNYL 100 MCG/2 ML VIAL ONE (12:03)
[2019-06-09] MEDS ORDERED: ONDANSETRON 4 MG/2 ML VIAL ONE (12:03)
[2019-06-09] MEDS: HYDROmorphone 2 MG/1 ML VIAL IV PRN ×4 (12:21→12:42)
[2019-06-09] MEDS: LUBIPROSTONE 24 MCG CAPSULE PO SCH (14:38)
[2019-06-09] MEDS: METOPROLOL SUCCINATE XL 50 MG TABLET PO SCH (14:38)
[2019-06-09] MEDS: FENOFIBRATE 145 MG TABLET PO SCH (14:38)
[2019-06-09] MEDS: amLODIPine 5 MG TABLET PO SCH ×2 (14:38→20:54)
[2019-06-09] MEDS: PANTOPRAZOLE 40 MG TABLET PO SCH (14:38)
[2019-06-09] MEDS: ASPIRIN EC 81 MG TABLET PO SCH (14:38)
[2019-06-09] MEDS: GABAPENTIN 600 MG TABLET PO SCH (20:54)
[2019-06-09] MEDS: SIMVASTATIN 20 MG TABLET PO SCH (20:54)
[2019-06-09] MEDS ORDERED: INSULIN GLARGINE 100 UNIT/ML SUBCUT SCH (21:00)
[2019-06-09] MEDS: CEFEPIME 1,000 MG in SODIUM CHLORIDE 0.9% 100 ML IV SCH (21:03)
[2019-06-10 05:26] LABS: Basophils # 0.1 10*3/uL (0.0-0.2); Basophils % 0.7 % (0.0-0.8); Eosinophils # 0.4 10*3/uL (0.0-0.87); Eosinophils % 4.4 % (0.00-10.9); Hematocrit 23.8 VOL% (42.0-52.0); Hemoglobin 7.3 GM/DL (14.0-18.0); Immature Granulocytes Absolute 0.09 #; Lymphocytes # 1.5 10*3/uL (1.4-4.0); Lymphocytes % 17.1 % (21.2-54.2); Mean Corpuscular HGB Conc 30.7 GM/DL (32-36); Mean Corpuscular Volume 94.8 FL (87-102); Mean Platelet Volume 11.2 FL (9.6-12.0); Monocytes % 7.2 % (1.7-12.7); Neutrophils % 69.6 % (38.7-73.9); Platelet Count 258 T/CUMM (130-400); Red Blood Count 2.51 MC/CUMM (3.8-5.5); Red Cell Distribution Width 14.3 % (9.3-17.3); White Blood Count 8.9 T/CUMM (4-12)
[2019-06-10 05:55] LABS: Calcium 7.7 MG/DL (8.5-10.1); Osmolality,Calculated 302.3 MOS/KG (273-304)
[2019-06-10] MEDS: HEPARIN 5,000 UNIT/1 ML VIAL SUBCUT SCH ×3 (06:37→21:00)
[2019-06-10] MEDS: ASPIRIN EC 81 MG TABLET PO SCH (09:19)
[2019-06-10] MEDS: amLODIPine 5 MG TABLET PO SCH ×2 (09:19→20:57)
[2019-06-10] MEDS: LUBIPROSTONE 24 MCG CAPSULE PO SCH (09:19)
[2019-06-10] MEDS: FENOFIBRATE 145 MG TABLET PO SCH (09:19)
[2019-06-10] MEDS: PANTOPRAZOLE 40 MG TABLET PO SCH (09:19)
[2019-06-10] MEDS: METOPROLOL SUCCINATE XL 50 MG TABLET PO SCH (09:20)
[2019-06-10] MEDS: INSULIN LISPRO 100 UNIT/ML SUBCUT SCH ×3 (09:38→17:26)
[2019-06-10] MEDS ORDERED: FUROSEMIDE 20 MG/2 ML VIAL IV PRN (12:40)
[2019-06-10] MEDS ORDERED: SODIUM CHLORIDE 0.9% 1,000 ML IV PRN (12:40)
[2019-06-10] MEDS ORDERED: INSULIN GLARGINE 100 UNIT/ML SUBCUT SCH ×2 (12:42→12:46)
[2019-06-10] MEDS: GABAPENTIN 600 MG TABLET PO SCH (20:55)
[2019-06-10] MEDS: SIMVASTATIN 20 MG TABLET PO SCH (20:55)
[2019-06-10] MEDS: CEFEPIME 1,000 MG in SODIUM CHLORIDE 0.9% 100 ML IV SCH (21:21)
[2019-06-11 05:44] LABS: Basophils # 0.1 10*3/uL (0.0-0.2); Basophils % 0.7 % (0.0-0.8); Eosinophils # 0.3 10*3/uL (0.0-0.87); Eosinophils % 3.7 % (0.00-10.9); Hematocrit 28.2 VOL% (42.0-52.0); Hemoglobin 8.9 GM/DL (14.0-18.0); Immature Granulocytes % 1.8 %; Immature Granulocytes Absolute 0.15 #; Lymphocytes # 1.6 10*3/uL (1.4-4.0); Lymphocytes % 18.4 % (21.2-54.2); Mean Corpuscular HGB Conc 31.6 GM/DL (32-36); Mean Corpuscular Volume 92.2 FL (87-102); Mean Platelet Volume 11.1 FL (9.6-12.0); Monocytes % 7.2 % (1.7-12.7); Neutrophils % 68.2 % (38.7-73.9); Platelet Count 254 T/CUMM (130-400); Red Blood Count 3.06 MC/CUMM (3.8-5.5); Red Cell Distribution Width 14.5 % (9.3-17.3); White Blood Count 8.4 T/CUMM (4-12)
[2019-06-11] MEDS: HEPARIN 5,000 UNIT/1 ML VIAL SUBCUT SCH ×2 (06:00→15:11)
[2019-06-11] MEDS: LUBIPROSTONE 24 MCG CAPSULE PO SCH (08:13)
[2019-06-11] MEDS: INSULIN LISPRO 100 UNIT/ML SUBCUT SCH ×2 (08:13→12:31)
[2019-06-11] MEDS: ASPIRIN EC 81 MG TABLET PO SCH (08:13)
[2019-06-11] MEDS: FENOFIBRATE 145 MG TABLET PO SCH (08:13)
[2019-06-11] MEDS: amLODIPine 5 MG TABLET PO SCH (08:13)
[2019-06-11] MEDS: METOPROLOL SUCCINATE XL 50 MG TABLET PO SCH (08:14)
[2019-06-11] MEDS: PANTOPRAZOLE 40 MG TABLET PO SCH (08:14)
[2019-06-11] MEDS ORDERED: INSULIN GLARGINE 100 UNIT/ML SUBCUT SCH (11:11)
[2019-06-11 12:10] VITALS: BP 128/62
== END 2019-06-11 16:40 | disposition home or self-care (01) | DRG 580 ==
LOC: N.ED 20:40 → N.EDINP 06-09 02:16 → N.5E 06-09 04:13
PROVIDERS: ADMIT Internal Medicine; ATTEND Internal Medicine

== ENCOUNTER 2019-08-19 19:34 | Inpatient (IN) ==
[2019-08-19] MEDS ORDERED: GLUCAGON 1 MG VIAL IM PRN (21:01)
[2019-08-19] MEDS ORDERED: ONDANSETRON 4 MG/2 ML VIAL IV PRN (21:01)
[2019-08-19] MEDS ORDERED: DEXTROSE 50% 25 GM/50 ML VIAL IV PRN (21:01)
[2019-08-19 22:08] LABS: Apearance,Urine CLEAR (Clear); Bilirubin,Urine Negative (Negative); Blood, Urine Small mg/dL (Negative); Glucose,Urine (UA) >=500 mg/dL (Negative); Ketones,Urine Negative (Negative); Nitrite,Urine Negative (Negative); Protein,Urine >=500 MG/DL; RBC,Urine 4 /HPF (0-4); Squamous Epithelial Cell,Urine Occasional /HPF (0-10); Urine Color Straw (Yellow); Urine Specific Gravity 1.012 (1.001-1.035); Urine Urobilinogen < 2.0 EU/DL (0.2-1.0); WBC,Urine 5 /HPF (0-6)
[2019-08-19] MEDS ORDERED: VANCOMYCIN INJ 1,500 MG in SODIUM CHLORIDE 0.9% 500 ML IV PRN (23:00)
[2019-08-19] MEDS ORDERED: VANCOMYCIN INJ 1,500 MG in SODIUM CHLORIDE 0.9% 500 ML IV ONE (23:00)
[2019-08-20] MEDS: HEPARIN 5,000 UNIT/1 ML VIAL SUBCUT SCH ×4 (00:28→23:53)
[2019-08-20] MEDS: INSULIN LISPRO 100 UNIT/ML SUBCUT SCH ×5 (00:28→23:56)
[2019-08-20] MEDS: GABAPENTIN 300 MG CAPSULE PO SCH ×2 (00:30→21:10)
[2019-08-20 05:09] LABS: Basophils # 0.1 10*3/uL (0.0-0.2); Basophils % 0.5 % (0.0-0.8); Eosinophils # 0.4 10*3/uL (0.0-0.87); Hematocrit 22.4 VOL% (42.0-52.0); Hemoglobin 7.4 GM/DL (14.0-18.0); Immature Granulocytes Absolute 0.13 #; Lymphocytes # 1.5 10*3/uL (1.4-4.0); Lymphocytes % 11.5 % (21.2-54.2); Mean Platelet Volume 10.8 FL (9.6-12.0); Monocytes % 5.4 % (1.7-12.7); Neutrophils % 78.6 % (38.7-73.9); Platelet Count 314 T/CUMM (130-400); Red Blood Count 2.49 MC/CUMM (3.8-5.5); Red Cell Distribution Width 14.9 % (9.3-17.3); White Blood Count 12.9 T/CUMM (4-12)
[2019-08-20 05:24] LABS: Calcium 7.5 MG/DL (8.5-10.1); Osmolality,Calculated 300.5 MOS/KG (273-304)
[2019-08-20] MEDS ORDERED: INSULIN GLARGINE 100 UNIT/ML SUBCUT SCH (07:30)
[2019-08-20] MEDS ORDERED: MAGNESIUM HYDROXIDE SUSP 30 ML UDCUP PO PRN (11:02)
[2019-08-20] MEDS ORDERED: SODIUM CHLORIDE 0.9% 1,000 ML IV PRN (11:14)
[2019-08-20] MEDS: LUBIPROSTONE 24 MCG CAPSULE PO SCH (12:06)
[2019-08-20] MEDS: amLODIPine 5 MG TABLET PO SCH ×2 (12:12→21:10)
[2019-08-20] MEDS: TORSEMIDE 20 MG TABLET PO SCH (12:12)
[2019-08-20] MEDS: DOCUSATE SODIUM 100 MG CAPSULE PO SCH ×2 (12:12→21:10)
[2019-08-20] MEDS: metOLazone 5 MG TABLET PO SCH (12:13)
[2019-08-20] MEDS: PANTOPRAZOLE 40 MG TABLET PO SCH (12:13)
[2019-08-20] MEDS: FENOFIBRATE 145 MG TABLET PO SCH (12:13)
[2019-08-20] MEDS: ASPIRIN EC 81 MG TABLET PO SCH (12:13)
[2019-08-20] MEDS: METOPROLOL SUCCINATE XL 50 MG TABLET PO SCH (12:14)
[2019-08-20] MEDS: ACETAMINOPHEN 325 MG TABLET PO PRN ×2 (15:35→23:57)
[2019-08-21 04:46] LABS: Basophils # 0.1 10*3/uL (0.0-0.2); Basophils % 0.7 % (0.0-0.8); Eosinophils # 0.4 10*3/uL (0.0-0.87); Eosinophils % 3.2 % (0.00-10.9); Hematocrit 26.5 VOL% (42.0-52.0); Hemoglobin 8.6 GM/DL (14.0-18.0); Immature Granulocytes % 1.1 %; Immature Granulocytes Absolute 0.12 #; Lymphocytes # 1.7 10*3/uL (1.4-4.0); Lymphocytes % 15.1 % (21.2-54.2); Mean Corpuscular HGB Conc 32.5 GM/DL (32-36); Mean Corpuscular Volume 89.2 FL (87-102); Mean Platelet Volume 10.6 FL (9.6-12.0); Monocytes % 6.9 % (1.7-12.7); Platelet Count 302 T/CUMM (130-400); Red Blood Count 2.97 MC/CUMM (3.8-5.5); Red Cell Distribution Width 14.9 % (9.3-17.3); White Blood Count 11.1 T/CUMM (4-12)
[2019-08-21 05:12] LABS: Alanine Aminotransferase 20 U/L (16-61); Albumin 1.5 G/DL (3.4-5.0); Alkaline Phosphatase 92 U/L (45-117); Aspartate Amino Transferase 23 U/L (0-37); Bilirubin,Total < 0.39 MG/DL (0.2-1.0); Blood Urea Nitrogen 62 MG/DL (7-18); Calcium 7.7 MG/DL (8.5-10.1); Estimated Glom Filtration Rate 11 ML/MIN; Glucose 235 MG/DL (74-106); Osmolality,Calculated 304.4 MOS/KG (273-304); Total Protein 6.8 G/DL (6.4-8.3)
[2019-08-21] MEDS: HEPARIN 5,000 UNIT/1 ML VIAL SUBCUT SCH ×3 (05:57→21:55)
[2019-08-21] MEDS: INSULIN LISPRO 100 UNIT/ML SUBCUT SCH ×3 (05:57→18:48)
[2019-08-21 06:01] LABS: Hepatitis B Surface Ag Quant 0.14 Index; Hepatitis B Surface Ag Result Negative (Negative); Hepatitis C Virus Ab Quant 0.09 Index; Hepatitis C Virus Ab Result Negative (Negative)
[2019-08-21] MEDS ORDERED: POTASSIUM CHLORIDE RIDER 20 MEQ in PREMIX 1 EACH IV PRN (08:09)
[2019-08-21] MEDS ORDERED: POTASSIUM CHLORIDE RIDER 10 MEQ in PREMIX 1 EACH IV PRN (09:23)
[2019-08-21] MEDS: LUBIPROSTONE 24 MCG CAPSULE PO SCH (10:08)
[2019-08-21] MEDS: INSULIN GLARGINE 100 UNIT/ML SUBCUT SCH (10:09)
[2019-08-21] MEDS ORDERED: LIDOCAINE 1% 20 ML VIAL ONE (13:07)
[2019-08-21] MEDS ORDERED: SODIUM CHLORIDE 0.9% 250 ML IV SCH (13:30)
[2019-08-21] MEDS ORDERED: KETAMINE 500 MG/10 ML VIAL ONE (14:02)
[2019-08-21] MEDS ORDERED: MIDAZOLAM 2 MG/2 ML VIAL ONE (14:02)
[2019-08-21] MEDS ORDERED: PROPOFOL 200 MG/20 ML VIAL IV ONE (14:02)
[2019-08-21] MEDS ORDERED: LIDOCAINE 2% 5 ML VIAL ONE (14:02)
[2019-08-21] MEDS ORDERED: ONDANSETRON 4 MG/2 ML VIAL IV PRN (14:10)
[2019-08-21] MEDS ORDERED: HYDROmorphone 2 MG/1 ML VIAL IV PRN (14:10)
[2019-08-21] MEDS: metOLazone 5 MG TABLET PO SCH (15:35)
[2019-08-21] MEDS: FENOFIBRATE 145 MG TABLET PO SCH (15:35)
[2019-08-21] MEDS: TORSEMIDE 20 MG TABLET PO SCH (15:35)
[2019-08-21] MEDS: METOPROLOL SUCCINATE XL 50 MG TABLET PO SCH (15:35)
[2019-08-21] MEDS: DOCUSATE SODIUM 100 MG CAPSULE PO SCH ×2 (15:35→20:43)
[2019-08-21] MEDS: amLODIPine 5 MG TABLET PO SCH ×2 (15:35→20:43)
[2019-08-21] MEDS: ASPIRIN EC 81 MG TABLET PO SCH (15:35)
[2019-08-21] MEDS: PANTOPRAZOLE 40 MG TABLET PO SCH (15:35)
[2019-08-21] MEDS ORDERED: DEXTROSE 50% 25 GM/50 ML VIAL IV PRN (15:37)
[2019-08-21] MEDS ORDERED: GLUCAGON 1 MG VIAL IM PRN (15:37)
[2019-08-21] MEDS: POTASSIUM CHLORIDE RIDER 10 MEQ in PREMIX 1 EACH IV PRN ×2 (16:16→20:46)
[2019-08-21] MEDS: ACETAMINOPHEN 325 MG TABLET PO PRN ×2 (18:49→23:53)
[2019-08-21] MEDS: GABAPENTIN 300 MG CAPSULE PO SCH (20:43)
[2019-08-22] MEDS: INSULIN LISPRO 100 UNIT/ML SUBCUT SCH ×4 (00:09→18:03)
[2019-08-22 04:39] LABS: Basophils # 0.1 10*3/uL (0.0-0.2); Basophils % 0.7 % (0.0-0.8); Eosinophils # 0.3 10*3/uL (0.0-0.87); Hematocrit 27.8 VOL% (42.0-52.0); Immature Granulocytes % 1.4 %; Immature Granulocytes Absolute 0.15 #; Lymphocytes # 1.8 10*3/uL (1.4-4.0); Lymphocytes % 16.5 % (21.2-54.2); Mean Corpuscular HGB Conc 32.4 GM/DL (32-36); Mean Corpuscular Volume 89.4 FL (87-102); Mean Platelet Volume 10.4 FL (9.6-12.0); Monocytes % 6.3 % (1.7-12.7); Neutrophils % 72.1 % (38.7-73.9); Platelet Count 326 T/CUMM (130-400); Red Blood Count 3.11 MC/CUMM (3.8-5.5); Red Cell Distribution Width 15.1 % (9.3-17.3); White Blood Count 11.1 T/CUMM (4-12)
[2019-08-22] MEDS ORDERED: DIAZEPAM 5 MG TABLET PO ONE (05:00)
[2019-08-22] MEDS ORDERED: MIDAZOLAM 2 MG/2 ML VIAL IV ONE (05:00)
[2019-08-22] MEDS ORDERED: fentaNYL 100 MCG/2 ML VIAL IV ONE (05:00)
[2019-08-22 05:17] LABS: Alanine Aminotransferase 22 U/L (16-61); Albumin 1.5 G/DL (3.4-5.0); Alkaline Phosphatase 99 U/L (45-117); Aspartate Amino Transferase 27 U/L (0-37); Bilirubin,Total < 0.39 MG/DL (0.2-1.0); Blood Urea Nitrogen 62 MG/DL (7-18); Calcium 7.7 MG/DL (8.5-10.1); Estimated Glom Filtration Rate 11 ML/MIN; Glucose 240 MG/DL (74-106); Osmolality,Calculated 308.1 MOS/KG (273-304); Total Protein 6.6 G/DL (6.4-8.3)
[2019-08-22 05:18] LABS: Calcium 7.8 MG/DL (8.5-10.1)
[2019-08-22] MEDS: amLODIPine 5 MG TABLET PO SCH ×2 (08:55→21:34)
[2019-08-22] MEDS: METOPROLOL SUCCINATE XL 50 MG TABLET PO SCH (08:55)
[2019-08-22] MEDS: HEPARIN 5,000 UNIT/1 ML VIAL SUBCUT SCH ×3 (08:56→22:25)
[2019-08-22] MEDS: INSULIN GLARGINE 100 UNIT/ML SUBCUT SCH (08:56)
[2019-08-22] MEDS: ASPIRIN EC 81 MG TABLET PO SCH (08:57)
[2019-08-22] MEDS ORDERED: VANCOMYCIN INJ 1,500 MG in SODIUM CHLORIDE 0.9% 500 ML IV ONE (09:00)
[2019-08-22] MEDS ORDERED: HEPARIN/NACL 0.9% 2 UNITS/ML 2,000 ML IV ONE (09:47)
[2019-08-22] MEDS ORDERED: fentaNYL 100 MCG/2 ML VIAL ONE (10:02)
[2019-08-22] MEDS ORDERED: MIDAZOLAM 2 MG/2 ML VIAL ONE (10:03)
[2019-08-22] MEDS ORDERED: HEPARIN 5,000 UNIT/1 ML VIAL ONE (10:46)
[2019-08-22] MEDS ORDERED: HEPARIN 5,000 UNIT/1 ML VIAL IV ONE (10:46)
[2019-08-22] MEDS: TORSEMIDE 20 MG TABLET PO SCH (13:23)
[2019-08-22] MEDS: metOLazone 5 MG TABLET PO SCH (13:23)
[2019-08-22] MEDS: PANTOPRAZOLE 40 MG TABLET PO SCH (13:23)
[2019-08-22] MEDS: DOCUSATE SODIUM 100 MG CAPSULE PO SCH ×2 (13:24→21:34)
[2019-08-22] MEDS: LUBIPROSTONE 24 MCG CAPSULE PO SCH (13:25)
[2019-08-22] MEDS: FENOFIBRATE 145 MG TABLET PO SCH (13:25)
[2019-08-22] MEDS: ACETAMINOPHEN 325 MG TABLET PO PRN ×2 (14:42→19:38)
[2019-08-22] MEDS: POTASSIUM CHLORIDE RIDER 10 MEQ in PREMIX 1 EACH IV PRN ×2 (18:04→22:25)
[2019-08-22] MEDS: GABAPENTIN 300 MG CAPSULE PO SCH (21:35)
[2019-08-23] MEDS: INSULIN LISPRO 100 UNIT/ML SUBCUT SCH ×4 (00:30→18:01)
[2019-08-23] MEDS: POTASSIUM CHLORIDE RIDER 10 MEQ in PREMIX 1 EACH IV PRN ×2 (01:24→04:04)
[2019-08-23 04:32] LABS: Basophils # 0.1 10*3/uL (0.0-0.2); Basophils % 0.6 % (0.0-0.8); Eosinophils # 0.3 10*3/uL (0.0-0.87); Eosinophils % 2.6 % (0.00-10.9); Hematocrit 28.9 VOL% (42.0-52.0); Hemoglobin 9.3 GM/DL (14.0-18.0); Immature Granulocytes % 0.9 %; Immature Granulocytes Absolute 0.11 #; Lymphocytes # 2.1 10*3/uL (1.4-4.0); Lymphocytes % 16.3 % (21.2-54.2); Mean Corpuscular HGB Conc 32.2 GM/DL (32-36); Mean Corpuscular Volume 89.5 FL (87-102); Mean Platelet Volume 10.1 FL (9.6-12.0); Monocytes % 5.8 % (1.7-12.7); Neutrophils % 73.8 % (38.7-73.9); Platelet Count 343 T/CUMM (130-400); Red Blood Count 3.23 MC/CUMM (3.8-5.5); Red Cell Distribution Width 14.9 % (9.3-17.3); White Blood Count 12.5 T/CUMM (4-12)
[2019-08-23 05:06] LABS: Albumin 1.4 G/DL (3.4-5.0); Bilirubin,Total 0.6 MG/DL (0.2-1.0); Calcium 7.7 MG/DL (8.5-10.1); Osmolality,Calculated 294.4 MOS/KG (273-304); Total Protein 6.6 G/DL (6.4-8.3)
[2019-08-23 05:10] LABS: Risk Ratio 4.43; VLDL CHOLESTEROL 42.2 MG/DL
[2019-08-23] MEDS: HEPARIN 5,000 UNIT/1 ML VIAL SUBCUT SCH ×3 (06:32→22:15)
[2019-08-23] MEDS: INSULIN GLARGINE 100 UNIT/ML SUBCUT SCH (09:24)
[2019-08-23] MEDS: ACETAMINOPHEN 325 MG TABLET PO PRN ×3 (09:25→19:39)
[2019-08-23] MEDS: metOLazone 5 MG TABLET PO SCH (09:26)
[2019-08-23] MEDS: LUBIPROSTONE 24 MCG CAPSULE PO SCH (09:26)
[2019-08-23] MEDS: ASPIRIN EC 81 MG TABLET PO SCH (09:26)
[2019-08-23] MEDS: amLODIPine 5 MG TABLET PO SCH ×2 (09:26→21:10)
[2019-08-23] MEDS: METOPROLOL SUCCINATE XL 50 MG TABLET PO SCH (09:26)
[2019-08-23] MEDS: DOCUSATE SODIUM 100 MG CAPSULE PO SCH ×2 (09:26→21:10)
[2019-08-23] MEDS: FENOFIBRATE 145 MG TABLET PO SCH (09:26)
[2019-08-23] MEDS: TORSEMIDE 20 MG TABLET PO SCH (09:26)
[2019-08-23] MEDS: PANTOPRAZOLE 40 MG TABLET PO SCH (09:26)
[2019-08-23] MEDS: SODIUM HYPOCHLORITE 0.25% IRRIG 473 ML BOTTLE TOP SCH (13:09)
[2019-08-23] MEDS: GABAPENTIN 300 MG CAPSULE PO SCH (21:10)
[2019-08-24] MEDS: INSULIN LISPRO 100 UNIT/ML SUBCUT SCH ×4 (00:41→17:36)
[2019-08-24 06:07] LABS: Partial Thromboplastin Time 36.4 SECS (20.8-36.0)
[2019-08-24] MEDS ORDERED: ceFAZolin 1,000 MG in SYRINGE 1 EACH IV ONE (06:30)
[2019-08-24] MEDS: HEPARIN 5,000 UNIT/1 ML VIAL SUBCUT SCH ×2 (06:30→17:31)
[2019-08-24] MEDS ORDERED: SODIUM CHLORIDE 0.9% 250 ML IV SCH (10:00)
[2019-08-24] MEDS ORDERED: PROPOFOL 200 MG/20 ML VIAL IV ONE (11:15)
[2019-08-24] MEDS ORDERED: MIDAZOLAM 2 MG/2 ML VIAL ONE (11:15)
[2019-08-24] MEDS ORDERED: KETAMINE 500 MG/10 ML VIAL ONE (11:15)
[2019-08-24] MEDS ORDERED: LIDOCAINE 2% 5 ML VIAL ONE (11:15)
[2019-08-24] MEDS ORDERED: SODIUM CHLORIDE 0.9% 250 ML IV ONE (11:16)
[2019-08-24] MEDS ORDERED: HYDROmorphone 2 MG/1 ML VIAL IV PRN (11:40)
[2019-08-24] MEDS ORDERED: ONDANSETRON 4 MG/2 ML VIAL IV PRN (11:40)
[2019-08-24] MEDS: ASPIRIN EC 81 MG TABLET PO SCH (12:50)
[2019-08-24] MEDS: amLODIPine 5 MG TABLET PO SCH ×2 (12:50→21:16)
[2019-08-24] MEDS: TORSEMIDE 20 MG TABLET PO SCH (12:50)
[2019-08-24] MEDS: METOPROLOL SUCCINATE XL 50 MG TABLET PO SCH (12:50)
[2019-08-24] MEDS: metOLazone 5 MG TABLET PO SCH (12:50)
[2019-08-24] MEDS: LUBIPROSTONE 24 MCG CAPSULE PO SCH (12:50)
[2019-08-24] MEDS: FENOFIBRATE 145 MG TABLET PO SCH (12:50)
[2019-08-24] MEDS: INSULIN GLARGINE 100 UNIT/ML SUBCUT SCH (12:51)
[2019-08-24] MEDS: PANTOPRAZOLE 40 MG TABLET PO SCH (12:51)
[2019-08-24] MEDS: DOCUSATE SODIUM 100 MG CAPSULE PO SCH ×2 (12:51→21:16)
[2019-08-24] MEDS: SODIUM HYPOCHLORITE 0.25% IRRIG 473 ML BOTTLE TOP SCH (12:51)
[2019-08-24] MEDS ORDERED: VANCOMYCIN INJ 1,500 MG in SODIUM CHLORIDE 0.9% 500 ML IV ONE (17:00)
[2019-08-24] MEDS: GABAPENTIN 300 MG CAPSULE PO SCH (21:16)
[2019-08-25] MEDS: INSULIN LISPRO 100 UNIT/ML SUBCUT SCH ×3 (00:54→13:08)
[2019-08-25] MEDS: HEPARIN 5,000 UNIT/1 ML VIAL SUBCUT SCH ×2 (00:55→13:08)
[2019-08-25] MEDS: LUBIPROSTONE 24 MCG CAPSULE PO SCH (07:36)
[2019-08-25] MEDS ORDERED: FENOFIBRATE 160 MG TABLET PO SCH (08:51)
[2019-08-25] MEDS ORDERED: OMEGA 3 ACID ETHYL ESTERS 1 GM CAPSULE PO SCH (09:00)
[2019-08-25] MEDS: metOLazone 5 MG TABLET PO SCH (09:44)
[2019-08-25] MEDS: TORSEMIDE 20 MG TABLET PO SCH (09:44)
[2019-08-25] MEDS: INSULIN GLARGINE 100 UNIT/ML SUBCUT SCH (09:44)
[2019-08-25] MEDS: ASPIRIN EC 81 MG TABLET PO SCH (09:45)
[2019-08-25] MEDS: METOPROLOL SUCCINATE XL 50 MG TABLET PO SCH (09:45)
[2019-08-25] MEDS: PANTOPRAZOLE 40 MG TABLET PO SCH (09:45)
[2019-08-25] MEDS: DOCUSATE SODIUM 100 MG CAPSULE PO SCH (09:45)
[2019-08-25] MEDS: SODIUM HYPOCHLORITE 0.25% IRRIG 473 ML BOTTLE TOP SCH (09:46)
[2019-08-25] MEDS: ACETAMINOPHEN 325 MG TABLET PO PRN ×2 (09:50→14:37)
[2019-08-25 12:24] VITALS: BP 148/70
[2019-08-25] MEDS: amLODIPine 5 MG TABLET PO SCH (13:09)
== END 2019-08-25 16:51 | disposition home or self-care (01) | DRG 240 ==
LOC: EDUNIT# → EDBD → N.EDINP 19:34 → N.ED 19:34 → SUATTDRO 21:01 → N.2E 22:31 → SUATTDRO 08-20 13:38
PROVIDERS: ATTEND Internal Medicine

== ENCOUNTER 2019-09-05 13:07 | Inpatient (IN) ==
[2019-09-05] MEDS ORDERED: HYDROmorphone 2 MG/1 ML VIAL IV STA (13:27)
[2019-09-05] MEDS ORDERED: ONDANSETRON 4 MG/2 ML VIAL IV STA (13:27)
[2019-09-05] MEDS: SODIUM CHLORIDE 0.9% 1,000 ML IV SCH ×2 (13:50→22:16)
[2019-09-05] MEDS ORDERED: GLUCAGON 1 MG VIAL IM PRN ×3 (13:59→15:12)
[2019-09-05] MEDS ORDERED: DEXTROSE 50% 25 GM/50 ML VIAL IV PRN ×3 (13:59→15:12)
[2019-09-05] MEDS ORDERED: BISACODYL 5 MG TABLET PO PRN (13:59)
[2019-09-05] MEDS ORDERED: ONDANSETRON 4 MG/2 ML VIAL IV PRN (13:59)
[2019-09-05] MEDS ORDERED: ACETAMINOPHEN 325 MG TABLET PO PRN (13:59)
[2019-09-05] MEDS ORDERED: VANCOMYCIN INJ 1,500 MG in SODIUM CHLORIDE 0.9% 500 ML IV PRN (14:00)
[2019-09-05] MEDS ORDERED: PIPERACILLIN/TAZOBACTAM 3,375 MG in SODIUM CHLORIDE 0.9% 100 ML IV SCH (14:00)
[2019-09-05 14:28] LABS: Basophils # 0.1 10*3/uL (0.0-0.2); Basophils % 0.7 % (0.0-0.8); Eosinophils # 0.5 10*3/uL (0.0-0.87); Eosinophils % 3.8 % (0.00-10.9); Hemoglobin 8.3 GM/DL (14.0-18.0); Immature Granulocytes % 0.9 %; Immature Granulocytes Absolute 0.11 #; Lymphocytes # 1.6 10*3/uL (1.4-4.0); Lymphocytes % 13.3 % (21.2-54.2); Mean Corpuscular HGB Conc 31.9 GM/DL (32-36); Mean Corpuscular Volume 92.2 FL (87-102); Mean Platelet Volume 10.5 FL (9.6-12.0); Monocytes % 7.5 % (1.7-12.7); Neutrophils % 73.8 % (38.7-73.9); Platelet Count 340 T/CUMM (130-400); Red Blood Count 2.82 MC/CUMM (3.8-5.5); Red Cell Distribution Width 15.9 % (9.3-17.3); White Blood Count 11.8 T/CUMM (4-12)
[2019-09-05 14:40] LABS: Alanine Aminotransferase 17 U/L (16-61); Albumin 1.5 G/DL (3.4-5.0); Alkaline Phosphatase 133 U/L (45-117); Aspartate Amino Transferase 16 U/L (0-37); Bilirubin,Total < 0.39 MG/DL (0.2-1.0); Blood Urea Nitrogen 61 MG/DL (7-18); Calcium 7.6 MG/DL (8.5-10.1); Estimated Glom Filtration Rate 11 ML/MIN; Glucose 258 MG/DL (74-106); Osmolality,Calculated 300.7 MOS/KG (273-304); Total Protein 6.4 G/DL (6.4-8.3)
[2019-09-05] MEDS: INSULIN REGULAR 100 UNIT/ML SUBCUT SCH ×2 (16:14→20:22)
[2019-09-05] MEDS ORDERED: INSULIN REGULAR 100 UNIT/ML SUBCUT SCH (16:30)
[2019-09-05] MEDS ORDERED: INSULIN LISPRO 100 UNIT/ML SUBCUT SCH (17:00)
[2019-09-05] MEDS: HYDROmorphone 2 MG/1 ML VIAL IV PRN (18:40)
[2019-09-05] MEDS ORDERED: HYDROmorphone 2 MG/1 ML VIAL IV ONE ×2 (19:46→19:49)
[2019-09-05] MEDS ORDERED: VANCOMYCIN INJ 2,000 MG in SODIUM CHLORIDE 0.9% 500 ML IV ONE (20:00)
[2019-09-05] MEDS: SODIUM BICARBONATE 650 MG TABLET PO SCH (20:20)
[2019-09-05] MEDS: GABAPENTIN 300 MG CAPSULE PO SCH (20:21)
[2019-09-05] MEDS: DOCUSATE/SENNA 50-8.6 MG TABLET PO SCH (20:21)
[2019-09-05] MEDS: SIMVASTATIN 40 MG TABLET PO SCH (20:22)
[2019-09-05] MEDS: OMEGA 3 ACID ETHYL ESTERS 1 GM CAPSULE PO SCH (20:22)
[2019-09-06] MEDS: HYDROmorphone 2 MG/1 ML VIAL IV PRN ×3 (01:04→16:36)
[2019-09-06] MEDS: PIPERACILLIN/TAZOBACTAM 3,375 MG in SODIUM CHLORIDE 0.9% 100 ML IV SCH ×2 (04:58→16:36)
[2019-09-06 08:30] LABS: Basophils # 0.1 10*3/uL (0.0-0.2); Basophils % 0.7 % (0.0-0.8); Eosinophils # 0.5 10*3/uL (0.0-0.87); Eosinophils % 3.8 % (0.00-10.9); Hematocrit 27.5 VOL% (42.0-52.0); Hemoglobin 8.6 GM/DL (14.0-18.0); Immature Granulocytes % 0.9 %; Immature Granulocytes Absolute 0.13 #; Lymphocytes # 1.6 10*3/uL (1.4-4.0); Lymphocytes % 11.3 % (21.2-54.2); Mean Corpuscular HGB Conc 31.3 GM/DL (32-36); Mean Corpuscular Volume 93.9 FL (87-102); Mean Platelet Volume 10.4 FL (9.6-12.0); Monocytes % 6.9 % (1.7-12.7); Neutrophils % 76.4 % (38.7-73.9); Platelet Count 339 T/CUMM (130-400); Red Blood Count 2.93 MC/CUMM (3.8-5.5); Red Cell Distribution Width 16.3 % (9.3-17.3); White Blood Count 13.8 T/CUMM (4-12)
[2019-09-06] MEDS ORDERED: DIAZEPAM 5 MG TABLET PO ONE (08:30)
[2019-09-06] MEDS ORDERED: FAMOTIDINE 20 MG TABLET PO ONE (08:30)
[2019-09-06] MEDS: TORSEMIDE 20 MG TABLET PO SCH (08:32)
[2019-09-06] MEDS: LOSARTAN 50 MG TABLET PO SCH (08:33)
[2019-09-06] MEDS: amLODIPine 2.5 MG TABLET PO SCH (08:33)
[2019-09-06] MEDS: METOPROLOL SUCCINATE XL 50 MG TABLET PO SCH (08:33)
[2019-09-06] MEDS: SODIUM CHLORIDE 0.9% 1,000 ML IV SCH ×3 (08:36→21:30)
[2019-09-06] MEDS: INSULIN REGULAR 100 UNIT/ML SUBCUT SCH ×4 (08:37→21:37)
[2019-09-06 09:00] LABS: Calcium 7.2 MG/DL (8.5-10.1); Osmolality,Calculated 298.5 MOS/KG (273-304)
[2019-09-06] MEDS ORDERED: PANTOPRAZOLE 40 MG TABLET PO SCH (09:00)
[2019-09-06] MEDS ORDERED: INSULIN DETEMIR U SUBCUT SCH (09:00)
[2019-09-06] MEDS ORDERED: LIDOCAINE 1% 20 ML VIAL ONE (09:35)
[2019-09-06] MEDS ORDERED: MAGNESIUM SULF RIDER 2 GM in PREMIX 1 EACH IV PRN (09:51)
[2019-09-06] MEDS ORDERED: MAGNESIUM SULF RIDER 4 GM in PREMIX 1 EACH IV PRN (09:51)
[2019-09-06] MEDS ORDERED: PROPOFOL 200 MG/20 ML VIAL IV ONE (10:56)
[2019-09-06] MEDS ORDERED: MIDAZOLAM 2 MG/2 ML VIAL ONE (10:56)
[2019-09-06] MEDS ORDERED: fentaNYL 100 MCG/2 ML VIAL ONE (10:56)
[2019-09-06] MEDS ORDERED: LIDOCAINE 2% 5 ML VIAL ONE (10:57)
[2019-09-06] MEDS: POTASSIUM CHLORIDE 20 MEQ TABLET PO SCH (11:57)
[2019-09-06] MEDS: MULTIVITAMIN (CENTRUM) TABLET PO SCH (11:57)
[2019-09-06] MEDS: DOCUSATE/SENNA 50-8.6 MG TABLET PO SCH ×2 (11:58→21:34)
[2019-09-06] MEDS: PANTOPRAZOLE 40 MG TABLET PO SCH (11:58)
[2019-09-06] MEDS: OMEGA 3 ACID ETHYL ESTERS 1 GM CAPSULE PO SCH ×2 (11:58→21:33)
[2019-09-06] MEDS: GABAPENTIN 300 MG CAPSULE PO SCH ×2 (11:58→21:33)
[2019-09-06] MEDS: SODIUM BICARBONATE 650 MG TABLET PO SCH ×2 (11:59→21:34)
[2019-09-06] MEDS: metOLazone 5 MG TABLET PO SCH (11:59)
[2019-09-06] MEDS: FENOFIBRATE 145 MG TABLET PO SCH (11:59)
[2019-09-06] MEDS: SIMVASTATIN 40 MG TABLET PO SCH (21:34)
[2019-09-07] MEDS: HYDROmorphone 2 MG/1 ML VIAL IV PRN ×2 (00:39→08:10)
[2019-09-07] MEDS: PIPERACILLIN/TAZOBACTAM 3,375 MG in SODIUM CHLORIDE 0.9% 100 ML IV SCH ×2 (03:25→18:36)
[2019-09-07 06:04] LABS: Calcium 7.2 MG/DL (8.5-10.1); Osmolality,Calculated 295.7 MOS/KG (273-304)
[2019-09-07] MEDS: INSULIN REGULAR 100 UNIT/ML SUBCUT SCH ×2 (07:15→13:52)
[2019-09-07] MEDS: MULTIVITAMIN (CENTRUM) TABLET PO SCH (09:45)
[2019-09-07] MEDS: LOSARTAN 50 MG TABLET PO SCH (09:46)
[2019-09-07] MEDS: TORSEMIDE 20 MG TABLET PO SCH (09:46)
[2019-09-07] MEDS: POTASSIUM CHLORIDE 20 MEQ TABLET PO SCH (09:46)
[2019-09-07] MEDS: DOCUSATE/SENNA 50-8.6 MG TABLET PO SCH (09:47)
[2019-09-07] MEDS: PANTOPRAZOLE 40 MG TABLET PO SCH (09:47)
[2019-09-07] MEDS: amLODIPine 2.5 MG TABLET PO SCH (09:47)
[2019-09-07] MEDS: OMEGA 3 ACID ETHYL ESTERS 1 GM CAPSULE PO SCH (09:47)
[2019-09-07] MEDS: GABAPENTIN 300 MG CAPSULE PO SCH (09:47)
[2019-09-07] MEDS: FENOFIBRATE 145 MG TABLET PO SCH (09:48)
[2019-09-07] MEDS: metOLazone 5 MG TABLET PO SCH (09:48)
[2019-09-07] MEDS: SODIUM BICARBONATE 650 MG TABLET PO SCH (09:48)
[2019-09-07] MEDS: METOPROLOL SUCCINATE XL 50 MG TABLET PO SCH (09:48)
[2019-09-07] MEDS: SODIUM CHLORIDE 0.9% 1,000 ML IV SCH ×2 (09:59→13:30)
[2019-09-07 11:22] VITALS: BP 143/69
[2019-09-07] MEDS ORDERED: VANCOMYCIN INJ 1,500 MG in SODIUM CHLORIDE 0.9% 500 ML IV ONE (20:00)
== END 2019-09-07 16:15 | disposition home or self-care (01) | DRG 988 ==
LOC: N.ED 13:07 → N.EDINP 13:59 → N.3E 15:43
PROVIDERS: ADMIT Surgery; ATTEND Surgery

== ENCOUNTER 2019-09-28 06:47 | Inpatient (IN) ==
[2019-09-25 12:53] LABS: Basophils # 0.1 10*3/uL (0.0-0.2); Basophils % 0.6 % (0.0-0.8); Eosinophils # 0.6 10*3/uL (0.0-0.87); Hematocrit 23.4 VOL% (42.0-52.0); Hemoglobin 7.5 GM/DL (14.0-18.0); Immature Granulocytes % 0.9 %; Immature Granulocytes Absolute 0.13 #; Lymphocytes # 1.2 10*3/uL (1.4-4.0); Lymphocytes % 8.6 % (21.2-54.2); Mean Corpuscular HGB Conc 32.1 GM/DL (32-36); Mean Corpuscular Volume 93.2 FL (87-102); Mean Platelet Volume 9.8 FL (9.6-12.0); Monocytes % 6.3 % (1.7-12.7); Neutrophils % 79.6 % (38.7-73.9); Platelet Count 336 T/CUMM (130-400); Red Blood Count 2.51 MC/CUMM (3.8-5.5); Red Cell Distribution Width 15.5 % (9.3-17.3); White Blood Count 14.1 T/CUMM (4-12)
[2019-09-25 13:13] LABS: Alanine Aminotransferase 9 U/L (16-61); Albumin 1.1 G/DL (3.4-5.0); Alkaline Phosphatase 68 U/L (45-117); Aspartate Amino Transferase 10 U/L (0-37); Bilirubin,Total < 0.39 MG/DL (0.2-1.0); Blood Urea Nitrogen 51 MG/DL (7-18); Calcium 6.8 MG/DL (8.5-10.1); Estimated Glom Filtration Rate 11 ML/MIN; Glucose 300 MG/DL (74-106); Total Protein 6.3 G/DL (6.4-8.3)
[~2019-09-28 06:47] MED LIST: FAMOTIDINE 20 MG TABLET PO ONE; ceFAZolin 1,000 MG in SYRINGE 1 EACH IV ONE
[2019-09-28 07:43] LABS: Hematocrit 20.5 VOL% (42.0-52.0); Hemoglobin 6.5 GM/DL (14.0-18.0)
[2019-09-28] MEDS ORDERED: DEXTROSE 50% 25 GM/50 ML VIAL IV ONE ×3 (08:04→08:44)
[2019-09-28] MEDS: SODIUM CHLORIDE 0.9% 250 ML IV SCH (08:15)
[2019-09-28] MEDS ORDERED: ceFAZolin 1,000 MG VIAL ONE (08:32)
[2019-09-28] MEDS ORDERED: ALBUTEROL/IPRATROPIUM 3 ML NEB RESP TX PRN (09:31)
[2019-09-28] MEDS ORDERED: ACETAMINOPHEN 325 MG TABLET PO PRN (09:31)
[2019-09-28] MEDS ORDERED: DEXTROSE 10% 250 ML BAG IV PRN (09:31)
[2019-09-28] MEDS ORDERED: ONDANSETRON 4 MG/2 ML VIAL IV PRN (09:31)
[2019-09-28] MEDS ORDERED: BISACODYL 5 MG TABLET PO PRN (09:31)
[2019-09-28] MEDS ORDERED: GLUCAGON 1 MG VIAL IM PRN (09:31)
[2019-09-28] MEDS ORDERED: SODIUM CHLORIDE 0.9% 1,000 ML IV PRN (09:34)
[2019-09-28] MEDS ORDERED: POTASSIUM CHLORIDE 20 MEQ TABLET PO ONE (09:39)
[2019-09-28] MEDS ORDERED: PIPERACILLIN/TAZOBACTAM 3,375 MG in SODIUM CHLORIDE 0.9% 100 ML IV SCH (10:00)
[2019-09-28] MEDS: PANTOPRAZOLE 40 MG TABLET PO SCH (10:47)
[2019-09-28] MEDS: INSULIN LISPRO 100 UNIT/ML SUBCUT SCH ×2 (14:40→17:16)
[2019-09-28 18:26] LABS: Basophils # 0.1 10*3/uL (0.0-0.2); Basophils % 0.7 % (0.0-0.8); Eosinophils # 0.2 10*3/uL (0.0-0.87); Eosinophils % 1.7 % (0.00-10.9); Hemoglobin 8.7 GM/DL (14.0-18.0); Immature Granulocytes % 0.8 %; Immature Granulocytes Absolute 0.11 #; Lymphocytes # 1.7 10*3/uL (1.4-4.0); Lymphocytes % 12.4 % (21.2-54.2); Mean Corpuscular HGB Conc 32.2 GM/DL (32-36); Mean Corpuscular Volume 92.5 FL (87-102); Mean Platelet Volume 10.1 FL (9.6-12.0); Monocytes % 6.9 % (1.7-12.7); Neutrophils % 77.5 % (38.7-73.9); Platelet Count 320 T/CUMM (130-400); Red Blood Count 2.92 MC/CUMM (3.8-5.5); Red Cell Distribution Width 14.9 % (9.3-17.3); White Blood Count 13.8 T/CUMM (4-12)
[2019-09-28 19:45] LABS: Sedimentation Rate-Westergren 126 MM/HR (0-20)
[2019-09-28 19:46] LABS: Folate 6.3 NG/ML (5.4-24.0); Vitamin B12 409 PG/ML (211-911)
[2019-09-28 20:13] LABS: Apearance,Urine CLEAR (Clear); Bilirubin,Urine Negative (Negative); Blood, Urine Negative (Negative); Glucose,Urine (UA) >=500 mg/dL (Negative); Hyaline Casts,Urine 1 /LPF (0-3); Ketones,Urine Negative (Negative); Mucus,Urine Occasional /LPF (Occasional); Nitrite,Urine Negative (Negative); Protein,Urine >=500 MG/DL; RBC,Urine 7 /HPF (0-4); Squamous Epithelial Cell,Urine Occasional /HPF (0-10); Urine Color Yellow (Yellow); Urine Urobilinogen < 2.0 EU/DL (0.2-1.0); WBC,Urine 2 /HPF (0-6)
[2019-09-28] MEDS: DOCUSATE/SENNA 50-8.6 MG TABLET PO SCH (20:51)
[2019-09-28] MEDS: GABAPENTIN 300 MG CAPSULE PO SCH (20:51)
[2019-09-28] MEDS: SIMVASTATIN 40 MG TABLET PO SCH (20:51)
[2019-09-28] MEDS: OMEGA 3 ACID ETHYL ESTERS 1 GM CAPSULE PO SCH (20:52)
[2019-09-28] MEDS: SODIUM BICARBONATE 650 MG TABLET PO SCH (20:52)
[2019-09-28] MEDS: PIPERACILLIN/TAZOBACTAM 3,375 MG in SODIUM CHLORIDE 0.9% 100 ML IV SCH (20:52)
[2019-09-28 21:12] LABS: Free T4 (Free Thyroxine) 0.7 NG/DL (0.76-1.46)
[2019-09-28] MEDS: HYDROmorphone 2 MG/1 ML VIAL IV PRN (21:54)
[2019-09-29] MEDS: SODIUM CHLORIDE 0.9% 250 ML IV SCH ×2 (02:41→12:55)
[2019-09-29] MEDS: LEVOTHYROXINE 175 MCG TABLET PO SCH (05:09)
[2019-09-29] MEDS ORDERED: ceFAZolin 1,000 MG in SYRINGE 1 EACH IV ONE (05:30)
[2019-09-29] MEDS: HYDROmorphone 2 MG/1 ML VIAL IV PRN ×6 (05:38→14:18)
[2019-09-29 05:57] LABS: Basophils # 0.1 10*3/uL (0.0-0.2); Basophils % 0.7 % (0.0-0.8); Eosinophils # 0.5 10*3/uL (0.0-0.87); Eosinophils % 3.8 % (0.00-10.9); Hematocrit 26.9 VOL% (42.0-52.0); Hemoglobin 8.6 GM/DL (14.0-18.0); Immature Granulocytes % 0.7 %; Immature Granulocytes Absolute 0.09 #; Lymphocytes # 1.5 10*3/uL (1.4-4.0); Lymphocytes % 11.9 % (21.2-54.2); Mean Corpuscular Volume 92.8 FL (87-102); Monocytes % 6.8 % (1.7-12.7); Neutrophils % 76.1 % (38.7-73.9); Platelet Count 333 T/CUMM (130-400); Red Cell Distribution Width 15.1 % (9.3-17.3); White Blood Count 12.7 T/CUMM (4-12)
[2019-09-29 06:19] LABS: Calcium 6.9 MG/DL (8.5-10.1); Osmolality,Calculated 293.4 MOS/KG (273-304)
[2019-09-29] MEDS ORDERED: LEVOTHYROXINE 175 MCG TABLET PO SCH (06:30)
[2019-09-29 06:35] LABS: Risk Ratio 3.96; VLDL CHOLESTEROL 27.6 MG/DL
[2019-09-29] MEDS ORDERED: MAGNESIUM SULF RIDER 4 GM in PREMIX 1 EACH IV PRN (06:58)
[2019-09-29] MEDS ORDERED: MAGNESIUM SULF RIDER 2 GM in PREMIX 1 EACH IV PRN (06:58)
[2019-09-29] MEDS: POTASSIUM CHLORIDE 20 MEQ TABLET PO SCH (08:39)
[2019-09-29] MEDS: amLODIPine 2.5 MG TABLET PO SCH (08:39)
[2019-09-29] MEDS: metOLazone 5 MG TABLET PO SCH (08:39)
[2019-09-29] MEDS: LOSARTAN 50 MG TABLET PO SCH (08:39)
[2019-09-29] MEDS: PANTOPRAZOLE 40 MG TABLET PO SCH (08:40)
[2019-09-29] MEDS: METOPROLOL SUCCINATE XL 50 MG TABLET PO SCH (08:40)
[2019-09-29] MEDS ORDERED: TORSEMIDE 100 MG PO SCH (09:00)
[2019-09-29] MEDS ORDERED: ONDANSETRON 4 MG/2 ML VIAL ONE ×2 (11:19→11:29)
[2019-09-29] MEDS ORDERED: HYDROmorphone 2 MG/1 ML VIAL ONE (11:19)
[2019-09-29] MEDS ORDERED: PROPOFOL 200 MG/20 ML VIAL IV ONE (11:28)
[2019-09-29] MEDS ORDERED: SEVOFLURANE 1 UNIT/15 MINUTE INH ONE (11:28)
[2019-09-29] MEDS ORDERED: LIDOCAINE 2% 5 ML VIAL ONE (11:28)
[2019-09-29] MEDS ORDERED: DEXAMETHASONE 4 MG/1 ML VIAL ONE (11:29)
[2019-09-29] MEDS ORDERED: fentaNYL 100 MCG/2 ML VIAL ONE (11:29)
[2019-09-29] MEDS ORDERED: PHENYLEPHRINE 1 MG/10 ML SYRINGE IV ONE (11:29)
[2019-09-29] MEDS ORDERED: KETOROLAC 30 MG/1 ML VIAL ONE (11:29)
[2019-09-29] MEDS ORDERED: ONDANSETRON 4 MG/2 ML VIAL IV PRN (11:49)
[2019-09-29] MEDS: INSULIN LISPRO 100 UNIT/ML SUBCUT SCH ×3 (12:55→17:33)
[2019-09-29] MEDS: PIPERACILLIN/TAZOBACTAM 3,375 MG in SODIUM CHLORIDE 0.9% 100 ML IV SCH ×2 (12:55→20:48)
[2019-09-29] MEDS: INSULIN GLARGINE 100 UNIT/ML SUBCUT SCH (12:56)
[2019-09-29] MEDS: DOCUSATE/SENNA 50-8.6 MG TABLET PO SCH ×2 (13:00→20:49)
[2019-09-29] MEDS: MULTIVITAMIN (CENTRUM) TABLET PO SCH (13:17)
[2019-09-29] MEDS: ASPIRIN EC 81 MG TABLET PO SCH (13:18)
[2019-09-29] MEDS: SODIUM BICARBONATE 650 MG TABLET PO SCH ×2 (13:18→20:48)
[2019-09-29] MEDS: OMEGA 3 ACID ETHYL ESTERS 1 GM CAPSULE PO SCH ×2 (14:05→20:49)
[2019-09-29] MEDS: GABAPENTIN 300 MG CAPSULE PO SCH ×3 (14:05→20:49)
[2019-09-29] MEDS: FENOFIBRATE 145 MG TABLET PO SCH (14:51)
[2019-09-29] MEDS ORDERED: HYDROmorphone 2 MG/1 ML VIAL IV ONE (15:30)
[2019-09-29] MEDS ORDERED: NALOXONE 0.4 MG/ML VIAL IV PRN (16:32)
[2019-09-29] MEDS ORDERED: HYDROmorphone 2 MG/1 ML VIAL IV PRN (16:34)
[2019-09-29] MEDS: HYDROmorphone PCA 30 MG/30 ML SYRINGE IV SCH (17:01)
[2019-09-29] MEDS: SODIUM CHLORIDE 0.9% 1,000 ML IV SCH (17:05)
[2019-09-29] MEDS: ceFAZolin 2,000 MG in PREMIX 1 EACH IV SCH (17:34)
[2019-09-29] MEDS ORDERED: CYCLOBENZAPRINE 10 MG TABLET PO PRN (17:57)
[2019-09-29] MEDS: SIMVASTATIN 40 MG TABLET PO SCH (20:49)
[2019-09-30] MEDS: ceFAZolin 2,000 MG in PREMIX 1 EACH IV SCH (01:32)
[2019-09-30 05:38] LABS: Basophils # 0.1 10*3/uL (0.0-0.2); Basophils % 0.5 % (0.0-0.8); Eosinophils # 0.1 10*3/uL (0.0-0.87); Eosinophils % 0.7 % (0.00-10.9); Hematocrit 27.2 VOL% (42.0-52.0); Hemoglobin 8.5 GM/DL (14.0-18.0); Immature Granulocytes % 0.7 %; Immature Granulocytes Absolute 0.14 #; Lymphocytes # 1.5 10*3/uL (1.4-4.0); Lymphocytes % 7.6 % (21.2-54.2); Mean Corpuscular HGB Conc 31.3 GM/DL (32-36); Mean Corpuscular Volume 94.8 FL (87-102); Mean Platelet Volume 10.3 FL (9.6-12.0); Monocytes % 4.2 % (1.7-12.7); Neutrophils % 86.3 % (38.7-73.9); Platelet Count 350 T/CUMM (130-400); Red Blood Count 2.87 MC/CUMM (3.8-5.5); Red Cell Distribution Width 15.4 % (9.3-17.3); White Blood Count 19.1 T/CUMM (4-12)
[2019-09-30] MEDS: LEVOTHYROXINE 175 MCG TABLET PO SCH (06:00)
[2019-09-30 06:01] LABS: Osmolality,Calculated 298.7 MOS/KG (273-304)
[2019-09-30] MEDS: PIPERACILLIN/TAZOBACTAM 3,375 MG in SODIUM CHLORIDE 0.9% 100 ML IV SCH ×2 (09:43→21:24)
[2019-09-30] MEDS: INSULIN LISPRO 100 UNIT/ML SUBCUT SCH ×3 (09:43→17:19)
[2019-09-30] MEDS: INSULIN GLARGINE 100 UNIT/ML SUBCUT SCH (09:43)
[2019-09-30] MEDS: metOLazone 5 MG TABLET PO SCH (09:44)
[2019-09-30] MEDS: FENOFIBRATE 145 MG TABLET PO SCH (09:44)
[2019-09-30] MEDS: POTASSIUM CHLORIDE 20 MEQ TABLET PO SCH (09:44)
[2019-09-30] MEDS: OMEGA 3 ACID ETHYL ESTERS 1 GM CAPSULE PO SCH ×2 (09:44→21:23)
[2019-09-30] MEDS: DOCUSATE/SENNA 50-8.6 MG TABLET PO SCH ×2 (09:45→21:23)
[2019-09-30] MEDS: PANTOPRAZOLE 40 MG TABLET PO SCH (09:45)
[2019-09-30] MEDS: ASPIRIN EC 81 MG TABLET PO SCH (09:45)
[2019-09-30] MEDS: TORSEMIDE 20 MG TABLET PO SCH (09:45)
[2019-09-30] MEDS: GABAPENTIN 300 MG CAPSULE PO SCH ×2 (09:45→21:23)
[2019-09-30] MEDS: SODIUM BICARBONATE 650 MG TABLET PO SCH ×3 (09:45→21:23)
[2019-09-30] MEDS: METOPROLOL SUCCINATE XL 50 MG TABLET PO SCH (09:46)
[2019-09-30] MEDS: amLODIPine 2.5 MG TABLET PO SCH (09:46)
[2019-09-30] MEDS: MULTIVITAMIN (CENTRUM) TABLET PO SCH (09:46)
[2019-09-30] MEDS: LOSARTAN 50 MG TABLET PO SCH (09:46)
[2019-09-30] MEDS: ERGOCALCIFEROL 50,000 UNIT CAPSULE PO SCH (14:02)
[2019-09-30] MEDS: SODIUM CHLORIDE 0.9% 1,000 ML IV SCH (16:48)
[2019-09-30] MEDS: HYDROmorphone PCA 30 MG/30 ML SYRINGE IV SCH (17:52)
[2019-09-30] MEDS: SIMVASTATIN 40 MG TABLET PO SCH (21:23)
[2019-10-01 05:44] LABS: Basophils # 0.1 10*3/uL (0.0-0.2); Basophils % 0.6 % (0.0-0.8); Eosinophils # 0.5 10*3/uL (0.0-0.87); Eosinophils % 2.8 % (0.00-10.9); Hematocrit 25.3 VOL% (42.0-52.0); Immature Granulocytes % 0.8 %; Immature Granulocytes Absolute 0.14 #; Lymphocytes # 2.3 10*3/uL (1.4-4.0); Lymphocytes % 13.4 % (21.2-54.2); Mean Corpuscular HGB Conc 31.6 GM/DL (32-36); Mean Corpuscular Volume 93.7 FL (87-102); Mean Platelet Volume 10.2 FL (9.6-12.0); Monocytes % 5.6 % (1.7-12.7); Neutrophils % 76.8 % (38.7-73.9); Platelet Count 331 T/CUMM (130-400); Red Cell Distribution Width 15.2 % (9.3-17.3); White Blood Count 17.3 T/CUMM (4-12)
[2019-10-01] MEDS: LEVOTHYROXINE 175 MCG TABLET PO SCH (05:47)
[2019-10-01 06:15] LABS: Osmolality,Calculated 290.8 MOS/KG (273-304)
[2019-10-01] MEDS: INSULIN LISPRO 100 UNIT/ML SUBCUT SCH ×3 (08:16→16:19)
[2019-10-01 08:48] LABS: Hemoglobin A1 (Alkaline) 97.6 % (96.5-98.5); Hemoglobin A2 (Alkaline) 2.4 % (1.5-3.5)
[2019-10-01] MEDS: PIPERACILLIN/TAZOBACTAM 3,375 MG in SODIUM CHLORIDE 0.9% 100 ML IV SCH ×2 (10:54→20:27)
[2019-10-01] MEDS: ASPIRIN EC 81 MG TABLET PO SCH (10:55)
[2019-10-01] MEDS: POTASSIUM CHLORIDE 20 MEQ TABLET PO SCH (10:55)
[2019-10-01] MEDS: GABAPENTIN 300 MG CAPSULE PO SCH ×2 (10:55→20:23)
[2019-10-01] MEDS: TORSEMIDE 20 MG TABLET PO SCH (10:55)
[2019-10-01] MEDS: INSULIN GLARGINE 100 UNIT/ML SUBCUT SCH (10:55)
[2019-10-01] MEDS: LOSARTAN 50 MG TABLET PO SCH (10:55)
[2019-10-01] MEDS: MULTIVITAMIN (CENTRUM) TABLET PO SCH (10:55)
[2019-10-01] MEDS: OMEGA 3 ACID ETHYL ESTERS 1 GM CAPSULE PO SCH ×2 (10:55→20:24)
[2019-10-01] MEDS: amLODIPine 2.5 MG TABLET PO SCH (10:56)
[2019-10-01] MEDS: CHOLECALCIFEROL 1,000 UNIT TABLET PO SCH (10:56)
[2019-10-01] MEDS: DOCUSATE/SENNA 50-8.6 MG TABLET PO SCH ×2 (10:56→20:24)
[2019-10-01] MEDS: SODIUM BICARBONATE 650 MG TABLET PO SCH ×3 (10:56→20:24)
[2019-10-01] MEDS: FENOFIBRATE 145 MG TABLET PO SCH (10:56)
[2019-10-01] MEDS: PANTOPRAZOLE 40 MG TABLET PO SCH (10:56)
[2019-10-01] MEDS: metOLazone 5 MG TABLET PO SCH (10:56)
[2019-10-01] MEDS: METOPROLOL SUCCINATE XL 50 MG TABLET PO SCH (10:56)
[2019-10-01] MEDS: HYDROmorphone PCA 30 MG/30 ML SYRINGE IV SCH (16:18)
[2019-10-01] MEDS ORDERED: NALOXONE 0.4 MG/ML VIAL IV PRN ×2 (18:34→19:08)
[2019-10-01] MEDS ORDERED: HYDROmorphone PCA 30 MG/30 ML SYRINGE IV SCH (19:00)
[2019-10-01] MEDS: SIMVASTATIN 40 MG TABLET PO SCH (20:24)
[2019-10-02] MEDS: LEVOTHYROXINE 175 MCG TABLET PO SCH (06:07)
[2019-10-02 07:22] LABS: Basophils # 0.1 10*3/uL (0.0-0.2); Basophils % 0.7 % (0.0-0.8); Eosinophils # 0.6 10*3/uL (0.0-0.87); Eosinophils % 3.9 % (0.00-10.9); Hematocrit 25.5 VOL% (42.0-52.0); Hemoglobin 8.1 GM/DL (14.0-18.0); Immature Granulocytes % 1.8 %; Immature Granulocytes Absolute 0.27 #; Lymphocytes # 1.6 10*3/uL (1.4-4.0); Lymphocytes % 10.6 % (21.2-54.2); Mean Corpuscular HGB Conc 31.8 GM/DL (32-36); Mean Corpuscular Volume 94.1 FL (87-102); Mean Platelet Volume 9.9 FL (9.6-12.0); Monocytes % 6.6 % (1.7-12.7); Neutrophils % 76.4 % (38.7-73.9); Platelet Count 310 T/CUMM (130-400); Red Blood Count 2.71 MC/CUMM (3.8-5.5); Red Cell Distribution Width 15.1 % (9.3-17.3); White Blood Count 14.8 T/CUMM (4-12)
[2019-10-02 07:51] LABS: Alanine Aminotransferase < 6 U/L (16-61); Albumin 1.1 G/DL (3.4-5.0); Alkaline Phosphatase 58 U/L (45-117); Aspartate Amino Transferase 24 U/L (0-37); Bilirubin,Total < 0.39 MG/DL (0.2-1.0); Blood Urea Nitrogen 74 MG/DL (7-18); Calcium 7.2 MG/DL (8.5-10.1); Estimated Glom Filtration Rate 9 ML/MIN; Glucose 143 MG/DL (74-106); Total Protein 6.3 G/DL (6.4-8.3)
[2019-10-02] MEDS: DOCUSATE/SENNA 50-8.6 MG TABLET PO SCH ×2 (10:37→20:40)
[2019-10-02] MEDS: SODIUM BICARBONATE 650 MG TABLET PO SCH ×3 (10:37→20:40)
[2019-10-02] MEDS: OMEGA 3 ACID ETHYL ESTERS 1 GM CAPSULE PO SCH ×2 (10:37→20:40)
[2019-10-02] MEDS: ASPIRIN EC 81 MG TABLET PO SCH (10:38)
[2019-10-02] MEDS: MULTIVITAMIN (CENTRUM) TABLET PO SCH (10:38)
[2019-10-02] MEDS: TORSEMIDE 20 MG TABLET PO SCH (10:38)
[2019-10-02] MEDS: FENOFIBRATE 145 MG TABLET PO SCH (10:38)
[2019-10-02] MEDS: amLODIPine 2.5 MG TABLET PO SCH (10:38)
[2019-10-02] MEDS: METOPROLOL SUCCINATE XL 50 MG TABLET PO SCH (10:39)
[2019-10-02] MEDS: CHOLECALCIFEROL 1,000 UNIT TABLET PO SCH (10:39)
[2019-10-02] MEDS: POTASSIUM CHLORIDE 20 MEQ TABLET PO SCH (10:39)
[2019-10-02] MEDS: LOSARTAN 50 MG TABLET PO SCH (10:39)
[2019-10-02] MEDS: PANTOPRAZOLE 40 MG TABLET PO SCH (10:39)
[2019-10-02] MEDS: GABAPENTIN 300 MG CAPSULE PO SCH ×2 (10:39→20:41)
[2019-10-02] MEDS: PIPERACILLIN/TAZOBACTAM 3,375 MG in SODIUM CHLORIDE 0.9% 100 ML IV SCH ×2 (10:40→20:40)
[2019-10-02] MEDS: INSULIN GLARGINE 100 UNIT/ML SUBCUT SCH (10:42)
[2019-10-02] MEDS: LINACLOTIDE 145 MCG CAPSULE PO SCH (10:42)
[2019-10-02] MEDS: INSULIN LISPRO 100 UNIT/ML SUBCUT SCH ×3 (10:43→16:39)
[2019-10-02] MEDS: metOLazone 5 MG TABLET PO SCH (10:44)
[2019-10-02] MEDS ORDERED: MAGNESIUM HYDROXIDE SUSP 30 ML UDCUP PO ONE (10:58)
[2019-10-02] MEDS: SODIUM BICARB INJ 150 MEQ in STERILE WATER INJ 850 ML IV SCH (14:52)
[2019-10-02] MEDS: SIMVASTATIN 40 MG TABLET PO SCH (20:41)
[2019-10-03 05:25] LABS: Basophils # 0.1 10*3/uL (0.0-0.2); Basophils % 0.6 % (0.0-0.8); Eosinophils # 0.7 10*3/uL (0.0-0.87); Eosinophils % 5.4 % (0.00-10.9); Hematocrit 23.4 VOL% (42.0-52.0); Hemoglobin 7.4 GM/DL (14.0-18.0); Immature Granulocytes % 1.2 %; Immature Granulocytes Absolute 0.17 #; Lymphocytes # 1.7 10*3/uL (1.4-4.0); Lymphocytes % 12.4 % (21.2-54.2); Mean Corpuscular HGB Conc 31.6 GM/DL (32-36); Mean Corpuscular Volume 92.5 FL (87-102); Mean Platelet Volume 10.2 FL (9.6-12.0); Monocytes % 7.3 % (1.7-12.7); Neutrophils % 73.1 % (38.7-73.9); Platelet Count 322 T/CUMM (130-400); Red Blood Count 2.53 MC/CUMM (3.8-5.5); Red Cell Distribution Width 14.8 % (9.3-17.3); White Blood Count 13.7 T/CUMM (4-12)
[2019-10-03] MEDS: LEVOTHYROXINE 175 MCG TABLET PO SCH (06:04)
[2019-10-03 06:19] LABS: Alanine Aminotransferase < 6 U/L (16-61); Albumin 1.1 G/DL (3.4-5.0); Alkaline Phosphatase 75 U/L (45-117); Aspartate Amino Transferase 20 U/L (0-37); Blood Urea Nitrogen 72 MG/DL (7-18); Estimated Glom Filtration Rate 8 ML/MIN; Glucose 121 MG/DL (74-106); Osmolality,Calculated 298.5 MOS/KG (273-304); Total Protein 6.2 G/DL (6.4-8.3)
[2019-10-03] MEDS: HYDROmorphone PCA 30 MG/30 ML SYRINGE IV SCH (07:14)
[2019-10-03] MEDS ORDERED: SODIUM CHLORIDE 0.9% 1,000 ML IV PRN (07:33)
[2019-10-03] MEDS: INSULIN LISPRO 100 UNIT/ML SUBCUT SCH ×3 (08:39→16:45)
[2019-10-03] MEDS: INSULIN GLARGINE 100 UNIT/ML SUBCUT SCH (09:18)
[2019-10-03] MEDS: PIPERACILLIN/TAZOBACTAM 3,375 MG in SODIUM CHLORIDE 0.9% 100 ML IV SCH ×2 (09:18→21:14)
[2019-10-03] MEDS: DOCUSATE/SENNA 50-8.6 MG TABLET PO SCH ×2 (09:19→21:13)
[2019-10-03] MEDS: OMEGA 3 ACID ETHYL ESTERS 1 GM CAPSULE PO SCH ×2 (09:19→21:14)
[2019-10-03] MEDS: FENOFIBRATE 145 MG TABLET PO SCH (09:19)
[2019-10-03] MEDS: TORSEMIDE 20 MG TABLET PO SCH (09:19)
[2019-10-03] MEDS: METOPROLOL SUCCINATE XL 50 MG TABLET PO SCH (09:19)
[2019-10-03] MEDS: LOSARTAN 50 MG TABLET PO SCH (09:19)
[2019-10-03] MEDS: amLODIPine 2.5 MG TABLET PO SCH (09:19)
[2019-10-03] MEDS: CHOLECALCIFEROL 1,000 UNIT TABLET PO SCH (09:20)
[2019-10-03] MEDS: LINACLOTIDE 145 MCG CAPSULE PO SCH (09:20)
[2019-10-03] MEDS: metOLazone 5 MG TABLET PO SCH (09:20)
[2019-10-03] MEDS: GABAPENTIN 300 MG CAPSULE PO SCH ×3 (09:20→21:14)
[2019-10-03] MEDS: POTASSIUM CHLORIDE 20 MEQ TABLET PO SCH (09:20)
[2019-10-03] MEDS: SODIUM BICARBONATE 650 MG TABLET PO SCH ×3 (09:20→21:13)
[2019-10-03] MEDS: ASPIRIN EC 81 MG TABLET PO SCH (09:20)
[2019-10-03] MEDS: SODIUM BICARB INJ 150 MEQ in STERILE WATER INJ 850 ML IV SCH ×2 (09:20→21:24)
[2019-10-03] MEDS: PANTOPRAZOLE 40 MG TABLET PO SCH (09:20)
[2019-10-03] MEDS: MULTIVITAMIN (CENTRUM) TABLET PO SCH (09:20)
[2019-10-03] MEDS: MORPHINE 4 MG/1 ML VIAL IV PRN ×3 (12:28→21:12)
[2019-10-03 16:44] LABS: Hematocrit 27.6 VOL% (42.0-52.0)
[2019-10-03] MEDS: SIMVASTATIN 40 MG TABLET PO SCH (21:14)
[2019-10-04 04:23] LABS: Basophils # 0.1 10*3/uL (0.0-0.2); Basophils % 0.7 % (0.0-0.8); Eosinophils # 0.8 10*3/uL (0.0-0.87); Eosinophils % 6.3 % (0.00-10.9); Hematocrit 26.8 VOL% (42.0-52.0); Hemoglobin 8.7 GM/DL (14.0-18.0); Immature Granulocytes % 1.1 %; Immature Granulocytes Absolute 0.13 #; Lymphocytes # 1.2 10*3/uL (1.4-4.0); Mean Corpuscular HGB Conc 32.5 GM/DL (32-36); Mean Corpuscular Volume 92.1 FL (87-102); Mean Platelet Volume 9.8 FL (9.6-12.0); Monocytes % 7.9 % (1.7-12.7); Platelet Count 311 T/CUMM (130-400); Red Blood Count 2.91 MC/CUMM (3.8-5.5); Red Cell Distribution Width 14.6 % (9.3-17.3); White Blood Count 12.1 T/CUMM (4-12)
[2019-10-04 05:00] LABS: Alanine Aminotransferase < 6 U/L (16-61); Albumin 1.1 G/DL (3.4-5.0); Alkaline Phosphatase 66 U/L (45-117); Aspartate Amino Transferase 21 U/L (0-37); Bilirubin,Total < 0.39 MG/DL (0.2-1.0); Blood Urea Nitrogen 73 MG/DL (7-18); Calcium 6.7 MG/DL (8.5-10.1); Estimated Glom Filtration Rate 8 ML/MIN; Glucose 134 MG/DL (74-106); Osmolality,Calculated 304.3 MOS/KG (273-304); Total Protein 6.3 G/DL (6.4-8.3)
[2019-10-04] MEDS: LEVOTHYROXINE 175 MCG TABLET PO SCH (05:42)
[2019-10-04] MEDS: INSULIN LISPRO 100 UNIT/ML SUBCUT SCH ×3 (07:53→17:03)
[2019-10-04] MEDS: METOPROLOL SUCCINATE XL 50 MG TABLET PO SCH (09:36)
[2019-10-04] MEDS: FENOFIBRATE 145 MG TABLET PO SCH (09:36)
[2019-10-04] MEDS: SODIUM BICARBONATE 650 MG TABLET PO SCH ×3 (09:36→21:13)
[2019-10-04] MEDS: metOLazone 5 MG TABLET PO SCH (09:36)
[2019-10-04] MEDS: CHOLECALCIFEROL 1,000 UNIT TABLET PO SCH (09:37)
[2019-10-04] MEDS: DOCUSATE/SENNA 50-8.6 MG TABLET PO SCH ×2 (09:37→21:14)
[2019-10-04] MEDS: TORSEMIDE 20 MG TABLET PO SCH (09:37)
[2019-10-04] MEDS: MULTIVITAMIN (CENTRUM) TABLET PO SCH (09:38)
[2019-10-04] MEDS: POTASSIUM CHLORIDE 20 MEQ TABLET PO SCH ×3 (09:38→21:14)
[2019-10-04] MEDS: PANTOPRAZOLE 40 MG TABLET PO SCH (09:38)
[2019-10-04] MEDS: amLODIPine 2.5 MG TABLET PO SCH (09:38)
[2019-10-04] MEDS: GABAPENTIN 300 MG CAPSULE PO SCH ×3 (09:38→21:13)
[2019-10-04] MEDS: ASPIRIN EC 81 MG TABLET PO SCH (09:38)
[2019-10-04] MEDS: INSULIN GLARGINE 100 UNIT/ML SUBCUT SCH (09:39)
[2019-10-04] MEDS: LOSARTAN 50 MG TABLET PO SCH (09:39)
[2019-10-04] MEDS: OMEGA 3 ACID ETHYL ESTERS 1 GM CAPSULE PO SCH ×2 (09:39→21:13)
[2019-10-04] MEDS: LINACLOTIDE 145 MCG CAPSULE PO SCH (09:41)
[2019-10-04] MEDS: PIPERACILLIN/TAZOBACTAM 3,375 MG in SODIUM CHLORIDE 0.9% 100 ML IV SCH ×2 (10:04→21:14)
[2019-10-04] MEDS: SIMVASTATIN 40 MG TABLET PO SCH (21:14)
[2019-10-04] MEDS: MORPHINE 4 MG/1 ML VIAL IV PRN (23:49)
[2019-10-05] MEDS: LEVOTHYROXINE 175 MCG TABLET PO SCH (05:32)
[2019-10-05] MEDS: SODIUM BICARB INJ 150 MEQ in STERILE WATER INJ 850 ML IV SCH ×2 (05:36→07:36)
[2019-10-05 05:57] LABS: Basophils # 0.1 10*3/uL (0.0-0.2); Eosinophils # 0.9 10*3/uL (0.0-0.87); Eosinophils % 7.4 % (0.00-10.9); Hematocrit 30.7 VOL% (42.0-52.0); Hemoglobin 9.8 GM/DL (14.0-18.0); Immature Granulocytes % 1.1 %; Immature Granulocytes Absolute 0.14 #; Lymphocytes # 2.4 10*3/uL (1.4-4.0); Lymphocytes % 18.8 % (21.2-54.2); Mean Corpuscular HGB Conc 31.9 GM/DL (32-36); Mean Corpuscular Volume 91.4 FL (87-102); Mean Platelet Volume 9.8 FL (9.6-12.0); Monocytes % 9.2 % (1.7-12.7); Neutrophils % 62.5 % (38.7-73.9); Platelet Count 357 T/CUMM (130-400); Red Blood Count 3.36 MC/CUMM (3.8-5.5); Red Cell Distribution Width 14.4 % (9.3-17.3); White Blood Count 12.7 T/CUMM (4-12)
[2019-10-05 06:53] LABS: Alanine Aminotransferase < 6 U/L (16-61); Albumin 1.2 G/DL (3.4-5.0); Alkaline Phosphatase 83 U/L (45-117); Aspartate Amino Transferase 24 U/L (0-37); Blood Urea Nitrogen 69 MG/DL (7-18); Estimated Glom Filtration Rate 9 ML/MIN; Glucose 67 MG/DL (74-106); Osmolality,Calculated 303.8 MOS/KG (273-304); Total Protein 6.8 G/DL (6.4-8.3)
[2019-10-05] MEDS: INSULIN LISPRO 100 UNIT/ML SUBCUT SCH ×3 (07:36→17:41)
[2019-10-05] MEDS: amLODIPine 2.5 MG TABLET PO SCH (08:21)
[2019-10-05] MEDS: MULTIVITAMIN (CENTRUM) TABLET PO SCH (08:22)
[2019-10-05] MEDS: TORSEMIDE 20 MG TABLET PO SCH (08:22)
[2019-10-05] MEDS: SODIUM BICARBONATE 650 MG TABLET PO SCH ×3 (08:22→20:36)
[2019-10-05] MEDS: OMEGA 3 ACID ETHYL ESTERS 1 GM CAPSULE PO SCH ×2 (08:22→20:36)
[2019-10-05] MEDS: metOLazone 5 MG TABLET PO SCH (08:22)
[2019-10-05] MEDS: FENOFIBRATE 145 MG TABLET PO SCH (08:22)
[2019-10-05] MEDS: ASPIRIN EC 81 MG TABLET PO SCH (08:22)
[2019-10-05] MEDS: PANTOPRAZOLE 40 MG TABLET PO SCH (08:22)
[2019-10-05] MEDS: POTASSIUM CHLORIDE 20 MEQ TABLET PO SCH (08:23)
[2019-10-05] MEDS: DOCUSATE/SENNA 50-8.6 MG TABLET PO SCH ×2 (08:23→20:36)
[2019-10-05] MEDS: METOPROLOL SUCCINATE XL 50 MG TABLET PO SCH (08:23)
[2019-10-05] MEDS: LINACLOTIDE 145 MCG CAPSULE PO SCH (08:23)
[2019-10-05] MEDS: LOSARTAN 50 MG TABLET PO SCH (08:23)
[2019-10-05] MEDS: GABAPENTIN 300 MG CAPSULE PO SCH ×3 (08:23→20:36)
[2019-10-05] MEDS: CHOLECALCIFEROL 1,000 UNIT TABLET PO SCH (08:23)
[2019-10-05] MEDS: INSULIN GLARGINE 100 UNIT/ML SUBCUT SCH (08:24)
[2019-10-05] MEDS: PIPERACILLIN/TAZOBACTAM 3,375 MG in SODIUM CHLORIDE 0.9% 100 ML IV SCH ×2 (08:25→22:11)
[2019-10-05] MEDS: MORPHINE 4 MG/1 ML VIAL IV PRN ×2 (09:34→19:44)
[2019-10-05] MEDS: SIMVASTATIN 40 MG TABLET PO SCH (22:09)
[2019-10-06] MEDS: MORPHINE 4 MG/1 ML VIAL IV PRN ×3 (00:19→23:03)
[2019-10-06] MEDS: LEVOTHYROXINE 175 MCG TABLET PO SCH (05:36)
[2019-10-06] MEDS: SODIUM BICARB INJ 150 MEQ in STERILE WATER INJ 850 ML IV SCH ×3 (07:39→15:37)
[2019-10-06] MEDS: LINACLOTIDE 145 MCG CAPSULE PO SCH (08:17)
[2019-10-06] MEDS: DOCUSATE/SENNA 50-8.6 MG TABLET PO SCH ×2 (08:17→20:54)
[2019-10-06] MEDS: FENOFIBRATE 145 MG TABLET PO SCH (08:17)
[2019-10-06] MEDS: LOSARTAN 50 MG TABLET PO SCH (08:18)
[2019-10-06] MEDS: amLODIPine 2.5 MG TABLET PO SCH (08:18)
[2019-10-06] MEDS: SODIUM BICARBONATE 650 MG TABLET PO SCH ×3 (08:18→20:54)
[2019-10-06] MEDS: OMEGA 3 ACID ETHYL ESTERS 1 GM CAPSULE PO SCH ×2 (08:18→20:54)
[2019-10-06] MEDS: TORSEMIDE 20 MG TABLET PO SCH (08:18)
[2019-10-06] MEDS: ASPIRIN EC 81 MG TABLET PO SCH (08:18)
[2019-10-06] MEDS: POTASSIUM CHLORIDE 20 MEQ TABLET PO SCH (08:18)
[2019-10-06] MEDS: PANTOPRAZOLE 40 MG TABLET PO SCH (08:18)
[2019-10-06] MEDS: CHOLECALCIFEROL 1,000 UNIT TABLET PO SCH (08:18)
[2019-10-06] MEDS: GABAPENTIN 300 MG CAPSULE PO SCH ×2 (08:19→20:55)
[2019-10-06] MEDS: MULTIVITAMIN (CENTRUM) TABLET PO SCH (08:19)
[2019-10-06] MEDS: metOLazone 5 MG TABLET PO SCH (08:19)
[2019-10-06] MEDS: METOPROLOL SUCCINATE XL 50 MG TABLET PO SCH (08:19)
[2019-10-06 08:35] LABS: Basophils # 0.1 10*3/uL (0.0-0.2); Basophils % 0.9 % (0.0-0.8); Eosinophils % 8.5 % (0.00-10.9); Hematocrit 30.1 VOL% (42.0-52.0); Hemoglobin 9.9 GM/DL (14.0-18.0); Immature Granulocytes % 0.7 %; Immature Granulocytes Absolute 0.08 #; Lymphocytes # 1.6 10*3/uL (1.4-4.0); Lymphocytes % 14.5 % (21.2-54.2); Mean Corpuscular HGB Conc 32.9 GM/DL (32-36); Mean Corpuscular Volume 90.4 FL (87-102); Mean Platelet Volume 10.1 FL (9.6-12.0); Monocytes % 8.1 % (1.7-12.7); Neutrophils % 67.3 % (38.7-73.9); Platelet Count 367 T/CUMM (130-400); Red Blood Count 3.33 MC/CUMM (3.8-5.5); Red Cell Distribution Width 14.6 % (9.3-17.3); White Blood Count 11.2 T/CUMM (4-12)
[2019-10-06 08:52] LABS: Calcium 7.2 MG/DL (8.5-10.1); Osmolality,Calculated 301.3 MOS/KG (273-304)
[2019-10-06] MEDS: INSULIN GLARGINE 100 UNIT/ML SUBCUT SCH (10:37)
[2019-10-06] MEDS: INSULIN LISPRO 100 UNIT/ML SUBCUT SCH ×3 (10:38→17:35)
[2019-10-06] MEDS: SIMVASTATIN 40 MG TABLET PO SCH (20:54)
[2019-10-07] MEDS: SODIUM BICARB INJ 150 MEQ in STERILE WATER INJ 850 ML IV SCH (05:09)
[2019-10-07] MEDS: LEVOTHYROXINE 175 MCG TABLET PO SCH (05:10)
[2019-10-07] MEDS: INSULIN LISPRO 100 UNIT/ML SUBCUT SCH ×3 (08:20→17:04)
[2019-10-07] MEDS: LINACLOTIDE 145 MCG CAPSULE PO SCH (09:39)
[2019-10-07] MEDS: TORSEMIDE 20 MG TABLET PO SCH (09:39)
[2019-10-07] MEDS: MULTIVITAMIN (CENTRUM) TABLET PO SCH (09:39)
[2019-10-07] MEDS: metOLazone 5 MG TABLET PO SCH (09:40)
[2019-10-07] MEDS: LOSARTAN 50 MG TABLET PO SCH (09:40)
[2019-10-07] MEDS: CHOLECALCIFEROL 1,000 UNIT TABLET PO SCH (09:40)
[2019-10-07] MEDS: amLODIPine 2.5 MG TABLET PO SCH (09:40)
[2019-10-07] MEDS: DOCUSATE/SENNA 50-8.6 MG TABLET PO SCH ×2 (09:40→20:56)
[2019-10-07] MEDS: METOPROLOL SUCCINATE XL 50 MG TABLET PO SCH (09:40)
[2019-10-07] MEDS: FENOFIBRATE 145 MG TABLET PO SCH (09:40)
[2019-10-07] MEDS: ASPIRIN EC 81 MG TABLET PO SCH (09:40)
[2019-10-07] MEDS: POTASSIUM CHLORIDE 20 MEQ TABLET PO SCH (09:40)
[2019-10-07] MEDS: OMEGA 3 ACID ETHYL ESTERS 1 GM CAPSULE PO SCH ×2 (09:40→20:57)
[2019-10-07] MEDS: GABAPENTIN 300 MG CAPSULE PO SCH ×2 (09:40→20:57)
[2019-10-07] MEDS: SODIUM BICARBONATE 650 MG TABLET PO SCH ×3 (09:40→20:57)
[2019-10-07] MEDS: PANTOPRAZOLE 40 MG TABLET PO SCH (09:41)
[2019-10-07] MEDS: INSULIN GLARGINE 100 UNIT/ML SUBCUT SCH (09:45)
[2019-10-07] MEDS: ERGOCALCIFEROL 50,000 UNIT CAPSULE PO SCH (13:17)
[2019-10-07] MEDS ORDERED: MORPHINE 4 MG/1 ML VIAL IV PRN (20:18)
[2019-10-07] MEDS: SIMVASTATIN 40 MG TABLET PO SCH (20:56)
[2019-10-08] MEDS: SODIUM BICARB INJ 150 MEQ in STERILE WATER INJ 850 ML IV SCH ×2 (01:17→08:30)
[2019-10-08] MEDS: LEVOTHYROXINE 175 MCG TABLET PO SCH (05:15)
[2019-10-08 07:16] LABS: Osmolality,Calculated 294.4 MOS/KG (273-304)
[2019-10-08] MEDS: metOLazone 5 MG TABLET PO SCH (08:12)
[2019-10-08] MEDS: TORSEMIDE 20 MG TABLET PO SCH (08:12)
[2019-10-08] MEDS: CHOLECALCIFEROL 1,000 UNIT TABLET PO SCH (08:12)
[2019-10-08] MEDS: SODIUM BICARBONATE 650 MG TABLET PO SCH ×2 (08:12→14:23)
[2019-10-08] MEDS: PANTOPRAZOLE 40 MG TABLET PO SCH (08:12)
[2019-10-08] MEDS: MULTIVITAMIN (CENTRUM) TABLET PO SCH (08:12)
[2019-10-08] MEDS: POTASSIUM CHLORIDE 20 MEQ TABLET PO SCH (08:12)
[2019-10-08] MEDS: amLODIPine 2.5 MG TABLET PO SCH (08:12)
[2019-10-08] MEDS: FENOFIBRATE 145 MG TABLET PO SCH (08:12)
[2019-10-08] MEDS: DOCUSATE/SENNA 50-8.6 MG TABLET PO SCH (08:13)
[2019-10-08] MEDS: LOSARTAN 50 MG TABLET PO SCH (08:13)
[2019-10-08] MEDS: INSULIN GLARGINE 100 UNIT/ML SUBCUT SCH (08:14)
[2019-10-08] MEDS: GABAPENTIN 300 MG CAPSULE PO SCH (08:14)
[2019-10-08] MEDS: METOPROLOL SUCCINATE XL 50 MG TABLET PO SCH (08:14)
[2019-10-08] MEDS: ASPIRIN EC 81 MG TABLET PO SCH (08:14)
[2019-10-08] MEDS: LINACLOTIDE 145 MCG CAPSULE PO SCH (08:14)
[2019-10-08] MEDS: INSULIN LISPRO 100 UNIT/ML SUBCUT SCH ×3 (08:18→16:04)
[2019-10-08] MEDS: OMEGA 3 ACID ETHYL ESTERS 1 GM CAPSULE PO SCH (09:56)
[2019-10-08 16:32] VITALS: BP 147/73
== END 2019-10-08 16:50 | DRG 240 ==
LOC: N.SDSINP 06:47 → N.3E 10:09
PROVIDERS: ADMIT Surgery; ATTEND Surgery

== ENCOUNTER 2019-11-03 10:44 | Inpatient (IN) ==
[2019-11-03] MEDS ORDERED: GLUCAGON 1 MG VIAL IM PRN (15:43)
[2019-11-03] MEDS ORDERED: DEXTROSE 50% 25 GM/50 ML VIAL IV PRN (15:43)
[2019-11-03] MEDS ORDERED: ONDANSETRON 4 MG/2 ML VIAL IV PRN (16:37)
[2019-11-03] MEDS ORDERED: FUROSEMIDE INJ 200 MG in SODIUM CHLORIDE 0.9% 50 ML IV ONE (17:00)
[2019-11-03] MEDS: PANTOPRAZOLE 40 MG TABLET PO SCH (18:41)
[2019-11-03] MEDS: amLODIPine 2.5 MG TABLET PO SCH (18:41)
[2019-11-03] MEDS: ENOXAPARIN 30 MG/0.3 ML SYRINGE SUBCUT SCH (21:52)
[2019-11-03] MEDS: SODIUM BICARBONATE 650 MG TABLET PO SCH (21:55)
[2019-11-03] MEDS: GABAPENTIN 300 MG CAPSULE PO SCH (21:56)
[2019-11-03] MEDS: SIMVASTATIN 40 MG TABLET PO SCH (21:56)
[2019-11-04 04:51] LABS: Basophils # 0.1 10*3/uL (0.0-0.2); Basophils % 1.2 % (0.0-0.8); Eosinophils # 0.9 10*3/uL (0.0-0.87); Eosinophils % 9.5 % (0.00-10.9); Hematocrit 27.8 VOL% (42.0-52.0); Hemoglobin 8.6 GM/DL (14.0-18.0); Immature Granulocytes % 0.8 %; Immature Granulocytes Absolute 0.08 #; Lymphocytes % 21.4 % (21.2-54.2); Mean Corpuscular HGB Conc 30.9 GM/DL (32-36); Mean Corpuscular Volume 96.9 FL (87-102); Mean Platelet Volume 10.3 FL (9.6-12.0); Neutrophils % 59.1 % (38.7-73.9); Platelet Count 321 T/CUMM (130-400); Red Blood Count 2.87 MC/CUMM (3.8-5.5); Red Cell Distribution Width 16.1 % (9.3-17.3); White Blood Count 9.6 T/CUMM (4-12)
[2019-11-04 05:15] LABS: Osmolality,Calculated 303.1 MOS/KG (273-304)
[2019-11-04 05:17] LABS: Troponin I 0.055 NG/ML (0.00-0.045)
[2019-11-04] MEDS: SODIUM BICARBONATE 650 MG TABLET PO SCH ×2 (09:54→21:06)
[2019-11-04] MEDS: ASPIRIN EC 81 MG TABLET PO SCH (09:54)
[2019-11-04] MEDS: amLODIPine 2.5 MG TABLET PO SCH (09:54)
[2019-11-04] MEDS: metOLazone 5 MG TABLET PO SCH (09:54)
[2019-11-04] MEDS: PANTOPRAZOLE 40 MG TABLET PO SCH (09:55)
[2019-11-04] MEDS: TORSEMIDE 20 MG TABLET PO SCH (16:53)
[2019-11-04] MEDS: SIMVASTATIN 40 MG TABLET PO SCH (21:05)
[2019-11-04] MEDS: GABAPENTIN 300 MG CAPSULE PO SCH (21:05)
[2019-11-04] MEDS: ENOXAPARIN 30 MG/0.3 ML SYRINGE SUBCUT SCH (21:06)
[2019-11-05 05:28] LABS: Calcium 6.7 MG/DL (8.5-10.1); Osmolality,Calculated 306.7 MOS/KG (273-304)
[2019-11-05] MEDS: SODIUM BICARBONATE 650 MG TABLET PO SCH ×2 (09:28→21:33)
[2019-11-05] MEDS: TORSEMIDE 20 MG TABLET PO SCH (09:28)
[2019-11-05] MEDS: metOLazone 5 MG TABLET PO SCH (09:28)
[2019-11-05] MEDS: ASPIRIN EC 81 MG TABLET PO SCH (09:28)
[2019-11-05] MEDS: amLODIPine 2.5 MG TABLET PO SCH (09:28)
[2019-11-05] MEDS: PANTOPRAZOLE 40 MG TABLET PO SCH (09:29)
[2019-11-05] MEDS: ENOXAPARIN 30 MG/0.3 ML SYRINGE SUBCUT SCH (21:33)
[2019-11-05] MEDS: SIMVASTATIN 40 MG TABLET PO SCH (21:33)
[2019-11-05] MEDS: GABAPENTIN 300 MG CAPSULE PO SCH (21:33)
[2019-11-06 05:59] LABS: Basophils # 0.1 10*3/uL (0.0-0.2); Basophils % 1.3 % (0.0-0.8); Eosinophils # 0.9 10*3/uL (0.0-0.87); Eosinophils % 8.5 % (0.00-10.9); Hematocrit 26.4 VOL% (42.0-52.0); Hemoglobin 8.4 GM/DL (14.0-18.0); Immature Granulocytes % 1.5 %; Immature Granulocytes Absolute 0.16 #; Lymphocytes # 1.8 10*3/uL (1.4-4.0); Lymphocytes % 17.1 % (21.2-54.2); Mean Corpuscular HGB Conc 31.8 GM/DL (32-36); Mean Platelet Volume 10.2 FL (9.6-12.0); Monocytes % 7.1 % (1.7-12.7); Neutrophils % 64.5 % (38.7-73.9); Platelet Count 324 T/CUMM (130-400); Red Blood Count 2.78 MC/CUMM (3.8-5.5); Red Cell Distribution Width 15.5 % (9.3-17.3); White Blood Count 10.4 T/CUMM (4-12)
[2019-11-06 06:16] LABS: Calcium 6.9 MG/DL (8.5-10.1); Osmolality,Calculated 295.4 MOS/KG (273-304)
[2019-11-06] MEDS: metOLazone 5 MG TABLET PO SCH (08:52)
[2019-11-06] MEDS: SODIUM BICARBONATE 650 MG TABLET PO SCH ×2 (08:52→21:01)
[2019-11-06] MEDS: ASPIRIN EC 81 MG TABLET PO SCH (08:52)
[2019-11-06] MEDS: PANTOPRAZOLE 40 MG TABLET PO SCH (08:52)
[2019-11-06] MEDS: amLODIPine 2.5 MG TABLET PO SCH (08:52)
[2019-11-06] MEDS: TORSEMIDE 20 MG TABLET PO SCH (08:58)
[2019-11-06] MEDS: GABAPENTIN 300 MG CAPSULE PO SCH (21:01)
[2019-11-06] MEDS: SIMVASTATIN 40 MG TABLET PO SCH (21:02)
[2019-11-06] MEDS: ENOXAPARIN 30 MG/0.3 ML SYRINGE SUBCUT SCH (21:04)
[2019-11-07 05:43] LABS: Calcium 6.8 MG/DL (8.5-10.1); Osmolality,Calculated 294.7 MOS/KG (273-304)
[2019-11-07 09:15] VITALS: BP 183/79
[2019-11-07] MEDS: TORSEMIDE 20 MG TABLET PO SCH (09:36)
[2019-11-07] MEDS: ASPIRIN EC 81 MG TABLET PO SCH (09:37)
[2019-11-07] MEDS: amLODIPine 2.5 MG TABLET PO SCH (09:37)
[2019-11-07] MEDS: SODIUM BICARBONATE 650 MG TABLET PO SCH (09:37)
[2019-11-07] MEDS: PANTOPRAZOLE 40 MG TABLET PO SCH (09:37)
[2019-11-07] MEDS: metOLazone 5 MG TABLET PO SCH (09:37)
== END 2019-11-07 11:58 | disposition home health service (06) | DRG 682 ==
LOC: SUATTDRO 12:57 → N.2E 12:57
PROVIDERS: ADMIT Internal Medicine; ATTEND Internal Medicine

== ENCOUNTER 2019-12-06 15:52 | Inpatient (IN) ==
[2019-12-06] MEDS ORDERED: ACETAMINOPHEN 325 MG TABLET PO PRN (18:25)
[2019-12-06] MEDS ORDERED: DEXTROSE 10% 250 ML BAG IV PRN (18:25)
[2019-12-06] MEDS ORDERED: GLUCAGON 1 MG VIAL IM PRN (18:25)
[2019-12-06 19:18] LABS: Basophils # 0.1 10*3/uL (0.0-0.2); Basophils % 0.5 % (0.0-0.8); Eosinophils # 0.9 10*3/uL (0.0-0.87); Eosinophils % 5.1 % (0.00-10.9); Hematocrit 19.2 VOL% (42.0-52.0); Immature Granulocytes % 1.1 %; Immature Granulocytes Absolute 0.19 #; Lymphocytes # 1.7 10*3/uL (1.4-4.0); Mean Corpuscular HGB Conc 32.8 GM/DL (32-36); Mean Platelet Volume 9.8 FL (9.6-12.0); Monocytes % 4.7 % (1.7-12.7); Neutrophils % 78.6 % (38.7-73.9); Platelet Count 431 T/CUMM (130-400); Red Blood Count 2.11 MC/CUMM (3.8-5.5); White Blood Count 16.9 T/CUMM (4-12)
[2019-12-06 19:23] LABS: Hemoglobin 6.3 GM/DL (14.0-18.0)
[2019-12-06 19:27] LABS: INR 1.3
[2019-12-06 19:47] LABS: Albumin 0.9 G/DL (3.4-5.0); Bilirubin,Total 0.4 MG/DL (0.2-1.0); Osmolality,Calculated 293.4 MOS/KG (273-304); Total Protein 6.4 G/DL (6.4-8.3)
[2019-12-06 19:51] LABS: Calcium 5.5 MG/DL (8.5-10.1)
[2019-12-06] MEDS ORDERED: ENOXAPARIN 30 MG/0.3 ML SYRINGE SUBCUT SCH (21:00)
[2019-12-06] MEDS: INSULIN REGULAR 100 UNIT/ML SUBCUT SCH (21:11)
[2019-12-06] MEDS: GABAPENTIN 300 MG CAPSULE PO SCH (22:13)
[2019-12-06] MEDS: OMEGA 3 ACID ETHYL ESTERS 1 GM CAPSULE PO SCH (22:14)
[2019-12-06] MEDS: DOCUSATE/SENNA 50-8.6 MG TABLET PO SCH (22:14)
[2019-12-06] MEDS: SODIUM BICARBONATE 650 MG TABLET PO SCH (22:15)
[2019-12-06] MEDS: SIMVASTATIN 40 MG TABLET PO SCH (22:21)
[2019-12-07 06:10] LABS: Basophils # 0.1 10*3/uL (0.0-0.2); Basophils % 0.5 % (0.0-0.8); Eosinophils % 6.9 % (0.00-10.9); Hematocrit 20.8 VOL% (42.0-52.0); Hemoglobin 6.8 GM/DL (14.0-18.0); Immature Granulocytes % 1.2 %; Immature Granulocytes Absolute 0.18 #; Lymphocytes # 2.2 10*3/uL (1.4-4.0); Mean Corpuscular HGB Conc 32.7 GM/DL (32-36); Mean Corpuscular Volume 91.2 FL (87-102); Mean Platelet Volume 9.9 FL (9.6-12.0); Monocytes % 5.9 % (1.7-12.7); Neutrophils % 70.5 % (38.7-73.9); Platelet Count 365 T/CUMM (130-400); Red Blood Count 2.28 MC/CUMM (3.8-5.5); Red Cell Distribution Width 14.8 % (9.3-17.3); White Blood Count 14.4 T/CUMM (4-12)
[2019-12-07 06:25] LABS: Risk Ratio 4.88; VLDL CHOLESTEROL 27.4 MG/DL
[2019-12-07 06:28] LABS: Calcium 5.2 MG/DL (8.5-10.1)
[2019-12-07] MEDS ORDERED: POTASSIUM CHLORIDE 20 MEQ/15 ML UDCUP PO ONE (09:52)
[2019-12-07] MEDS ORDERED: SODIUM CHLORIDE 0.9% 1,000 ML IV PRN (10:02)
[2019-12-07] MEDS ORDERED: ACETAMINOPHEN 325 MG TABLET PO PRN (10:02)
[2019-12-07] MEDS ORDERED: diphenhydrAMINE CAP 25 MG CAPSULE PO PRN (10:02)
[2019-12-07] MEDS: INSULIN REGULAR 100 UNIT/ML SUBCUT SCH ×4 (10:14→21:42)
[2019-12-07] MEDS ORDERED: LIDOCAINE 1%/EPI INJ 20 ML VIAL ONE (11:37)
[2019-12-07] MEDS ORDERED: BUPIVACAINE 0.5% 50 ML VIAL ONE (11:37)
[2019-12-07] MEDS ORDERED: SODIUM CHLORIDE 0.9% 250 ML IV SCH (12:00)
[2019-12-07] MEDS ORDERED: ceFAZolin 1,000 MG VIAL ONE (12:10)
[2019-12-07] MEDS ORDERED: fentaNYL 100 MCG/2 ML VIAL ONE (13:11)
[2019-12-07] MEDS ORDERED: KETAMINE 500 MG/10 ML VIAL ONE (13:11)
[2019-12-07] MEDS ORDERED: MIDAZOLAM 2 MG/2 ML VIAL ONE (13:12)
[2019-12-07 14:32] LABS: Free T4 (Free Thyroxine) 0.82 NG/DL (0.76-1.46)
[2019-12-07] MEDS: MULTIVITAMIN (CENTRUM) TABLET PO SCH (17:39)
[2019-12-07] MEDS: FENOFIBRATE 145 MG TABLET PO SCH (17:39)
[2019-12-07] MEDS: amLODIPine 2.5 MG TABLET PO SCH (17:39)
[2019-12-07] MEDS: OMEGA 3 ACID ETHYL ESTERS 1 GM CAPSULE PO SCH ×2 (17:40→21:41)
[2019-12-07] MEDS: SODIUM BICARBONATE 650 MG TABLET PO SCH ×2 (17:40→21:41)
[2019-12-07] MEDS: ASPIRIN EC 81 MG TABLET PO SCH (17:40)
[2019-12-07] MEDS: TORSEMIDE 20 MG TABLET PO SCH (17:40)
[2019-12-07] MEDS: PANTOPRAZOLE 40 MG TABLET PO SCH (17:40)
[2019-12-07] MEDS: metOLazone 5 MG TABLET PO SCH (17:40)
[2019-12-07] MEDS: METOPROLOL SUCCINATE XL 50 MG TABLET PO SCH (17:41)
[2019-12-07] MEDS: DOCUSATE/SENNA 50-8.6 MG TABLET PO SCH ×2 (17:41→21:41)
[2019-12-07] MEDS: HEPARIN 5,000 UNIT/1 ML VIAL SUBCUT SCH (17:46)
[2019-12-07 18:53] LABS: Hepatitis B Core IgM Quant 0.06 Index; Hepatitis B Surface Ag Quant < 0.10 Index; Hepatitis B Surface Ag Result Negative (Negative); Hepatitis C Virus Ab Quant 0.29 Index; Hepatitis C Virus Ab Result Negative (Negative)
[2019-12-07] MEDS: GABAPENTIN 300 MG CAPSULE PO SCH (21:41)
[2019-12-07] MEDS: SIMVASTATIN 40 MG TABLET PO SCH (21:42)
[2019-12-08] MEDS: HEPARIN 5,000 UNIT/1 ML VIAL SUBCUT SCH ×2 (00:28→13:33)
[2019-12-08 01:56] LABS: Apearance,Urine CLEAR (Clear); Bilirubin,Urine Negative (Negative); Blood, Urine Small mg/dL (Negative); Glucose,Urine (UA) >=500 mg/dL (Negative); Ketones,Urine Negative (Negative); Mucus,Urine Occasional /LPF (Occasional); Nitrite,Urine Negative (Negative); Protein,Urine >=500 MG/DL; RBC,Urine 6 /HPF (0-4); Squamous Epithelial Cell,Urine Occasional /HPF (0-10); Urine Color Yellow (Yellow); Urine Specific Gravity 1.014 (1.001-1.035); Urine Urobilinogen < 2.0 EU/DL (0.2-1.0); WBC,Urine 2 /HPF (0-6)
[2019-12-08] MEDS: LEVOTHYROXINE 50 MCG TABLET PO SCH (06:04)
[2019-12-08] MEDS: INSULIN REGULAR 100 UNIT/ML SUBCUT SCH ×4 (08:35→19:50)
[2019-12-08 12:46] LABS: Basophils % 0.3 % (0.0-0.8); Eosinophils # 0.6 10*3/uL (0.0-0.87); Eosinophils % 4.5 % (0.00-10.9); Hematocrit 27.8 VOL% (42.0-52.0); Immature Granulocytes % 0.7 %; Immature Granulocytes Absolute 0.09 #; Lymphocytes # 1.2 10*3/uL (1.4-4.0); Lymphocytes % 9.4 % (21.2-54.2); Mean Corpuscular HGB Conc 33.1 GM/DL (32-36); Mean Corpuscular Volume 89.1 FL (87-102); Mean Platelet Volume 9.7 FL (9.6-12.0); Neutrophils % 80.1 % (38.7-73.9); Platelet Count 362 T/CUMM (130-400); Red Blood Count 3.12 MC/CUMM (3.8-5.5); Red Cell Distribution Width 15.5 % (9.3-17.3); White Blood Count 12.5 T/CUMM (4-12)
[2019-12-08 12:51] LABS: Hemoglobin 9.2 GM/DL (14.0-18.0)
[2019-12-08 13:07] LABS: Calcium 6.4 MG/DL (8.5-10.1)
[2019-12-08] MEDS: TORSEMIDE 20 MG TABLET PO SCH (13:33)
[2019-12-08] MEDS: FENOFIBRATE 145 MG TABLET PO SCH (13:34)
[2019-12-08] MEDS: DOCUSATE/SENNA 50-8.6 MG TABLET PO SCH ×2 (13:34→20:47)
[2019-12-08] MEDS: PANTOPRAZOLE 40 MG TABLET PO SCH (13:34)
[2019-12-08] MEDS: OMEGA 3 ACID ETHYL ESTERS 1 GM CAPSULE PO SCH ×2 (13:34→20:47)
[2019-12-08] MEDS: ASPIRIN EC 81 MG TABLET PO SCH (13:34)
[2019-12-08] MEDS: SODIUM BICARBONATE 650 MG TABLET PO SCH ×2 (13:34→20:47)
[2019-12-08] MEDS: MULTIVITAMIN (CENTRUM) TABLET PO SCH (13:34)
[2019-12-08] MEDS: amLODIPine 2.5 MG TABLET PO SCH (13:35)
[2019-12-08] MEDS: metOLazone 5 MG TABLET PO SCH (13:35)
[2019-12-08] MEDS: METOPROLOL SUCCINATE XL 50 MG TABLET PO SCH (13:35)
[2019-12-08] MEDS: GABAPENTIN 300 MG CAPSULE PO SCH (18:07)
[2019-12-08] MEDS: SIMVASTATIN 40 MG TABLET PO SCH (20:47)
[2019-12-09] MEDS: HEPARIN 5,000 UNIT/1 ML VIAL SUBCUT SCH ×2 (00:20→12:27)
[2019-12-09] MEDS: LEVOTHYROXINE 50 MCG TABLET PO SCH (05:30)
[2019-12-09 06:34] LABS: Basophils # 0.1 10*3/uL (0.0-0.2); Basophils % 0.6 % (0.0-0.8); Eosinophils # 0.9 10*3/uL (0.0-0.87); Eosinophils % 6.7 % (0.00-10.9); Hematocrit 28.6 VOL% (42.0-52.0); Hemoglobin 9.3 GM/DL (14.0-18.0); Immature Granulocytes % 0.8 %; Immature Granulocytes Absolute 0.11 #; Lymphocytes # 1.6 10*3/uL (1.4-4.0); Lymphocytes % 11.4 % (21.2-54.2); Mean Corpuscular HGB Conc 32.5 GM/DL (32-36); Mean Corpuscular Volume 90.2 FL (87-102); Mean Platelet Volume 9.8 FL (9.6-12.0); Monocytes % 7.8 % (1.7-12.7); Neutrophils % 72.7 % (38.7-73.9); Platelet Count 386 T/CUMM (130-400); Red Blood Count 3.17 MC/CUMM (3.8-5.5); Red Cell Distribution Width 15.6 % (9.3-17.3); White Blood Count 14.1 T/CUMM (4-12)
[2019-12-09 06:55] LABS: Calcium 6.1 MG/DL (8.5-10.1)
[2019-12-09] MEDS: INSULIN REGULAR 100 UNIT/ML SUBCUT SCH ×4 (08:40→20:58)
[2019-12-09] MEDS: amLODIPine 2.5 MG TABLET PO SCH (08:52)
[2019-12-09] MEDS: SODIUM BICARBONATE 650 MG TABLET PO SCH ×2 (08:53→20:37)
[2019-12-09] MEDS: DOCUSATE/SENNA 50-8.6 MG TABLET PO SCH ×2 (08:53→20:34)
[2019-12-09] MEDS: MULTIVITAMIN (CENTRUM) TABLET PO SCH (08:53)
[2019-12-09] MEDS: PANTOPRAZOLE 40 MG TABLET PO SCH (08:53)
[2019-12-09] MEDS: TORSEMIDE 20 MG TABLET PO SCH (08:53)
[2019-12-09] MEDS: POTASSIUM CHLORIDE 20 MEQ TABLET PO SCH ×2 (08:53→20:35)
[2019-12-09] MEDS: OMEGA 3 ACID ETHYL ESTERS 1 GM CAPSULE PO SCH ×2 (08:53→20:35)
[2019-12-09] MEDS: FENOFIBRATE 145 MG TABLET PO SCH (08:54)
[2019-12-09] MEDS: metOLazone 5 MG TABLET PO SCH (08:54)
[2019-12-09] MEDS: ASPIRIN EC 81 MG TABLET PO SCH (08:54)
[2019-12-09] MEDS: METOPROLOL SUCCINATE XL 50 MG TABLET PO SCH (08:54)
[2019-12-09] MEDS ORDERED: POTASSIUM CHLORIDE 20 MEQ TABLET PO ONE (13:16)
[2019-12-09] MEDS: SIMVASTATIN 40 MG TABLET PO SCH (20:37)
[2019-12-09] MEDS: GABAPENTIN 300 MG CAPSULE PO SCH (20:37)
[2019-12-10] MEDS: HEPARIN 5,000 UNIT/1 ML VIAL SUBCUT SCH ×2 (00:13→20:43)
[2019-12-10 04:42] LABS: Basophils # 0.1 10*3/uL (0.0-0.2); Basophils % 0.5 % (0.0-0.8); Eosinophils % 7.2 % (0.00-10.9); Hematocrit 28.7 VOL% (42.0-52.0); Hemoglobin 9.1 GM/DL (14.0-18.0); Immature Granulocytes % 0.8 %; Lymphocytes # 1.6 10*3/uL (1.4-4.0); Lymphocytes % 12.2 % (21.2-54.2); Mean Corpuscular HGB Conc 31.7 GM/DL (32-36); Mean Corpuscular Volume 92.6 FL (87-102); Mean Platelet Volume 9.8 FL (9.6-12.0); Monocytes % 9.3 % (1.7-12.7); Platelet Count 333 T/CUMM (130-400); Red Cell Distribution Width 16.1 % (9.3-17.3); White Blood Count 13.3 T/CUMM (4-12)
[2019-12-10 05:21] LABS: Osmolality,Calculated 289.5 MOS/KG (273-304)
[2019-12-10 05:23] LABS: Calcium 5.7 MG/DL (8.5-10.1)
[2019-12-10] MEDS: LEVOTHYROXINE 50 MCG TABLET PO SCH (05:41)
[2019-12-10] MEDS: INSULIN REGULAR 100 UNIT/ML SUBCUT SCH ×4 (07:57→20:41)
[2019-12-10] MEDS ORDERED: fentaNYL 100 MCG/2 ML VIAL IV ONE (08:58)
[2019-12-10] MEDS ORDERED: DIAZEPAM 5 MG TABLET PO ONE (08:58)
[2019-12-10] MEDS ORDERED: ONDANSETRON 4 MG/2 ML VIAL IV ONE (08:58)
[2019-12-10] MEDS ORDERED: MIDAZOLAM 2 MG/2 ML VIAL IV ONE (08:58)
[2019-12-10] MEDS: DOCUSATE/SENNA 50-8.6 MG TABLET PO SCH ×2 (10:35→20:42)
[2019-12-10] MEDS: METOPROLOL SUCCINATE XL 50 MG TABLET PO SCH (10:35)
[2019-12-10] MEDS: FENOFIBRATE 145 MG TABLET PO SCH (10:35)
[2019-12-10] MEDS: OMEGA 3 ACID ETHYL ESTERS 1 GM CAPSULE PO SCH ×2 (10:36→20:42)
[2019-12-10] MEDS: SODIUM BICARBONATE 650 MG TABLET PO SCH ×2 (10:36→20:41)
[2019-12-10] MEDS: MULTIVITAMIN (CENTRUM) TABLET PO SCH (10:36)
[2019-12-10] MEDS: TORSEMIDE 20 MG TABLET PO SCH (10:36)
[2019-12-10] MEDS: metOLazone 5 MG TABLET PO SCH (10:36)
[2019-12-10] MEDS: amLODIPine 2.5 MG TABLET PO SCH (10:36)
[2019-12-10] MEDS: ASPIRIN EC 81 MG TABLET PO SCH (10:36)
[2019-12-10] MEDS: PANTOPRAZOLE 40 MG TABLET PO SCH (10:37)
[2019-12-10] MEDS ORDERED: HEPARIN 10,000 UNIT/10 ML VIAL IV SCH (16:30)
[2019-12-10] MEDS: GABAPENTIN 300 MG CAPSULE PO SCH (18:19)
[2019-12-10] MEDS: SIMVASTATIN 40 MG TABLET PO SCH (20:42)
[2019-12-11] MEDS: LEVOTHYROXINE 50 MCG TABLET PO SCH (06:00)
[2019-12-11] MEDS: INSULIN REGULAR 100 UNIT/ML SUBCUT SCH ×4 (08:37→21:05)
[2019-12-11] MEDS: DOCUSATE/SENNA 50-8.6 MG TABLET PO SCH ×2 (08:42→21:28)
[2019-12-11] MEDS: TORSEMIDE 20 MG TABLET PO SCH (08:42)
[2019-12-11] MEDS: metOLazone 5 MG TABLET PO SCH (08:43)
[2019-12-11] MEDS: OMEGA 3 ACID ETHYL ESTERS 1 GM CAPSULE PO SCH ×2 (08:43→21:29)
[2019-12-11] MEDS: METOPROLOL SUCCINATE XL 50 MG TABLET PO SCH (08:43)
[2019-12-11] MEDS: FENOFIBRATE 145 MG TABLET PO SCH (08:43)
[2019-12-11] MEDS: MULTIVITAMIN (CENTRUM) TABLET PO SCH (08:43)
[2019-12-11] MEDS: PANTOPRAZOLE 40 MG TABLET PO SCH (08:43)
[2019-12-11] MEDS: SODIUM BICARBONATE 650 MG TABLET PO SCH ×2 (08:43→21:28)
[2019-12-11] MEDS: amLODIPine 2.5 MG TABLET PO SCH (08:43)
[2019-12-11] MEDS ORDERED: DIAZEPAM 5 MG TABLET PO ONE (08:55)
[2019-12-11] MEDS ORDERED: HEPARIN/NACL 0.9% 2 UNITS/ML 2,000 ML IV ONE (08:59)
[2019-12-11] MEDS ORDERED: fentaNYL 100 MCG/2 ML VIAL ONE (09:32)
[2019-12-11] MEDS ORDERED: MIDAZOLAM 2 MG/2 ML VIAL ONE (09:33)
[2019-12-11] MEDS: HEPARIN 5,000 UNIT/1 ML VIAL SUBCUT SCH ×2 (12:13→21:29)
[2019-12-11] MEDS: ASPIRIN EC 81 MG TABLET PO SCH (12:13)
[2019-12-11] MEDS: GABAPENTIN 300 MG CAPSULE PO SCH (18:03)
[2019-12-11] MEDS: SIMVASTATIN 40 MG TABLET PO SCH (21:29)
[2019-12-12] MEDS: LEVOTHYROXINE 50 MCG TABLET PO SCH (05:39)
[2019-12-12] MEDS: INSULIN REGULAR 100 UNIT/ML SUBCUT SCH ×4 (07:39→23:06)
[2019-12-12] MEDS: HEPARIN 5,000 UNIT/1 ML VIAL SUBCUT SCH ×2 (08:22→20:18)
[2019-12-12] MEDS: METOPROLOL SUCCINATE XL 50 MG TABLET PO SCH (08:22)
[2019-12-12] MEDS: TORSEMIDE 20 MG TABLET PO SCH (08:22)
[2019-12-12] MEDS: SODIUM BICARBONATE 650 MG TABLET PO SCH ×2 (08:22→20:16)
[2019-12-12] MEDS: MULTIVITAMIN (CENTRUM) TABLET PO SCH (08:22)
[2019-12-12] MEDS: metOLazone 5 MG TABLET PO SCH (08:22)
[2019-12-12] MEDS: FENOFIBRATE 145 MG TABLET PO SCH (08:23)
[2019-12-12] MEDS: DOCUSATE/SENNA 50-8.6 MG TABLET PO SCH ×2 (08:23→20:18)
[2019-12-12] MEDS: ASPIRIN EC 81 MG TABLET PO SCH (08:23)
[2019-12-12] MEDS: amLODIPine 2.5 MG TABLET PO SCH (08:23)
[2019-12-12] MEDS: PANTOPRAZOLE 40 MG TABLET PO SCH (08:23)
[2019-12-12] MEDS: OMEGA 3 ACID ETHYL ESTERS 1 GM CAPSULE PO SCH ×2 (08:23→20:17)
[2019-12-12] MEDS: GABAPENTIN 300 MG CAPSULE PO SCH (18:08)
[2019-12-12] MEDS: SIMVASTATIN 40 MG TABLET PO SCH (20:16)
[2019-12-13 04:25] LABS: Basophils # 0.1 10*3/uL (0.0-0.2); Basophils % 0.5 % (0.0-0.8); Eosinophils # 0.9 10*3/uL (0.0-0.87); Eosinophils % 6.4 % (0.00-10.9); Hematocrit 24.4 VOL% (42.0-52.0); Hemoglobin 7.7 GM/DL (14.0-18.0); Immature Granulocytes % 0.7 %; Immature Granulocytes Absolute 0.09 #; Lymphocytes # 1.3 10*3/uL (1.4-4.0); Lymphocytes % 9.9 % (21.2-54.2); Mean Corpuscular HGB Conc 31.6 GM/DL (32-36); Mean Corpuscular Volume 93.8 FL (87-102); Mean Platelet Volume 9.8 FL (9.6-12.0); Monocytes % 8.7 % (1.7-12.7); Neutrophils % 73.8 % (38.7-73.9); Platelet Count 294 T/CUMM (130-400); Red Cell Distribution Width 15.6 % (9.3-17.3); White Blood Count 13.4 T/CUMM (4-12)
[2019-12-13 04:38] LABS: Calcium 6.8 MG/DL (8.5-10.1); Osmolality,Calculated 272.2 MOS/KG (273-304)
[2019-12-13] MEDS: LEVOTHYROXINE 50 MCG TABLET PO SCH (06:54)
[2019-12-13] MEDS: ASPIRIN EC 81 MG TABLET PO SCH (08:48)
[2019-12-13] MEDS: amLODIPine 2.5 MG TABLET PO SCH (08:48)
[2019-12-13] MEDS: metOLazone 5 MG TABLET PO SCH (08:48)
[2019-12-13] MEDS: HEPARIN 5,000 UNIT/1 ML VIAL SUBCUT SCH ×2 (08:48→22:17)
[2019-12-13] MEDS: SODIUM BICARBONATE 650 MG TABLET PO SCH ×2 (08:48→22:16)
[2019-12-13] MEDS: MULTIVITAMIN (CENTRUM) TABLET PO SCH (08:48)
[2019-12-13] MEDS: TORSEMIDE 20 MG TABLET PO SCH (08:48)
[2019-12-13] MEDS: FENOFIBRATE 145 MG TABLET PO SCH (08:48)
[2019-12-13] MEDS: DOCUSATE/SENNA 50-8.6 MG TABLET PO SCH ×2 (08:48→22:15)
[2019-12-13] MEDS: OMEGA 3 ACID ETHYL ESTERS 1 GM CAPSULE PO SCH ×2 (08:48→22:16)
[2019-12-13] MEDS: METOPROLOL SUCCINATE XL 50 MG TABLET PO SCH (08:48)
[2019-12-13] MEDS: PANTOPRAZOLE 40 MG TABLET PO SCH (08:48)
[2019-12-13] MEDS: INSULIN REGULAR 100 UNIT/ML SUBCUT SCH ×4 (09:01→22:24)
[2019-12-13] MEDS ORDERED: SODIUM CHLORIDE 0.9% 1,000 ML IV PRN (09:24)
[2019-12-13] MEDS ORDERED: EPOETIN ALFA 10,000 UNIT/1 ML VIAL IV PRN (15:24)
[2019-12-13] MEDS: GABAPENTIN 300 MG CAPSULE PO SCH (18:49)
[2019-12-13] MEDS: SIMVASTATIN 40 MG TABLET PO SCH (22:16)
[2019-12-13] MEDS: traZODone 50 MG TABLET PO PRN (22:16)
[2019-12-14] MEDS: LEVOTHYROXINE 50 MCG TABLET PO SCH (05:47)
[2019-12-14 06:46] LABS: Calcium 6.5 MG/DL (8.5-10.1); Osmolality,Calculated 272.4 MOS/KG (273-304)
[2019-12-14] MEDS: INSULIN REGULAR 100 UNIT/ML SUBCUT SCH ×4 (08:21→21:29)
[2019-12-14] MEDS ORDERED: DIAZEPAM 5 MG TABLET PO ONE (09:07)
[2019-12-14] MEDS ORDERED: fentaNYL 100 MCG/2 ML VIAL IV ONE (09:07)
[2019-12-14] MEDS ORDERED: MIDAZOLAM 2 MG/2 ML VIAL IV ONE (09:07)
[2019-12-14] MEDS ORDERED: HEPARIN/NACL 0.9% 2 UNITS/ML 2,000 ML IV ONE (09:14)
[2019-12-14] MEDS ORDERED: fentaNYL 100 MCG/2 ML VIAL ONE ×2 (10:05→10:07)
[2019-12-14] MEDS ORDERED: MIDAZOLAM 2 MG/2 ML VIAL ONE ×2 (10:05→10:07)
[2019-12-14 10:42] LABS: Ferritin 1032.7 ng/ml (26-388)
[2019-12-14] MEDS: TORSEMIDE 20 MG TABLET PO SCH (13:06)
[2019-12-14] MEDS: ASPIRIN EC 81 MG TABLET PO SCH (13:06)
[2019-12-14] MEDS: DOCUSATE/SENNA 50-8.6 MG TABLET PO SCH ×2 (13:07→21:59)
[2019-12-14] MEDS: FENOFIBRATE 145 MG TABLET PO SCH (13:07)
[2019-12-14] MEDS: MULTIVITAMIN (CENTRUM) TABLET PO SCH (13:07)
[2019-12-14] MEDS: amLODIPine 2.5 MG TABLET PO SCH (13:07)
[2019-12-14] MEDS: SODIUM BICARBONATE 650 MG TABLET PO SCH ×2 (13:07→21:59)
[2019-12-14] MEDS: HEPARIN 5,000 UNIT/1 ML VIAL SUBCUT SCH ×2 (13:07→21:59)
[2019-12-14] MEDS: PANTOPRAZOLE 40 MG TABLET PO SCH (13:07)
[2019-12-14] MEDS: OMEGA 3 ACID ETHYL ESTERS 1 GM CAPSULE PO SCH ×2 (13:07→21:58)
[2019-12-14] MEDS: metOLazone 5 MG TABLET PO SCH (13:07)
[2019-12-14] MEDS: METOPROLOL SUCCINATE XL 50 MG TABLET PO SCH (13:07)
[2019-12-14] MEDS: GABAPENTIN 300 MG CAPSULE PO SCH (18:20)
[2019-12-14] MEDS: SIMVASTATIN 40 MG TABLET PO SCH (21:59)
[2019-12-14] MEDS: traZODone 50 MG TABLET PO PRN (21:59)
[2019-12-15 05:13] LABS: Basophils # 0.1 10*3/uL (0.0-0.2); Basophils % 0.7 % (0.0-0.8); Eosinophils # 0.8 10*3/uL (0.0-0.87); Eosinophils % 6.3 % (0.00-10.9); Hematocrit 30.6 VOL% (42.0-52.0); Hemoglobin 9.9 GM/DL (14.0-18.0); Immature Granulocytes % 1.2 %; Immature Granulocytes Absolute 0.16 #; Lymphocytes # 1.6 10*3/uL (1.4-4.0); Mean Corpuscular HGB Conc 32.4 GM/DL (32-36); Mean Corpuscular Volume 93.6 FL (87-102); Mean Platelet Volume 10.2 FL (9.6-12.0); Monocytes % 10.5 % (1.7-12.7); Neutrophils % 69.3 % (38.7-73.9); Platelet Count 261 T/CUMM (130-400); Red Blood Count 3.27 MC/CUMM (3.8-5.5); Red Cell Distribution Width 14.7 % (9.3-17.3); White Blood Count 13.3 T/CUMM (4-12)
[2019-12-15 05:44] LABS: Albumin 0.8 G/DL (3.4-5.0); Bilirubin,Total 1.2 MG/DL (0.2-1.0); Calcium 6.7 MG/DL (8.5-10.1); Osmolality,Calculated 269.4 MOS/KG (273-304); Total Protein 6.1 G/DL (6.4-8.3)
[2019-12-15] MEDS: LEVOTHYROXINE 50 MCG TABLET PO SCH (06:07)
[2019-12-15] MEDS ORDERED: GABAPENTIN 300 MG CAPSULE PO SCH (09:00)
[2019-12-15] MEDS: TORSEMIDE 20 MG TABLET PO SCH (09:46)
[2019-12-15] MEDS: MULTIVITAMIN (CENTRUM) TABLET PO SCH (09:46)
[2019-12-15] MEDS: FENOFIBRATE 145 MG TABLET PO SCH (09:47)
[2019-12-15] MEDS: PANTOPRAZOLE 40 MG TABLET PO SCH (09:47)
[2019-12-15] MEDS: GABAPENTIN 300 MG CAPSULE PO SCH ×2 (09:47→18:44)
[2019-12-15] MEDS: DOCUSATE/SENNA 50-8.6 MG TABLET PO SCH ×2 (09:47→22:02)
[2019-12-15] MEDS: SODIUM BICARBONATE 650 MG TABLET PO SCH ×2 (09:48→22:02)
[2019-12-15] MEDS: METOPROLOL SUCCINATE XL 50 MG TABLET PO SCH (09:48)
[2019-12-15] MEDS: OMEGA 3 ACID ETHYL ESTERS 1 GM CAPSULE PO SCH ×2 (09:48→22:09)
[2019-12-15] MEDS: ASPIRIN EC 81 MG TABLET PO SCH (09:48)
[2019-12-15] MEDS: amLODIPine 2.5 MG TABLET PO SCH (09:48)
[2019-12-15] MEDS: HEPARIN 5,000 UNIT/1 ML VIAL SUBCUT SCH ×2 (09:48→22:02)
[2019-12-15] MEDS: metOLazone 5 MG TABLET PO SCH (09:49)
[2019-12-15] MEDS: INSULIN REGULAR 100 UNIT/ML SUBCUT SCH ×4 (10:12→22:03)
[2019-12-15] MEDS: traZODone 50 MG TABLET PO PRN (22:02)
[2019-12-15] MEDS: HYDROmorphone 2 MG/1 ML VIAL IV PRN (22:04)
[2019-12-15] MEDS: SIMVASTATIN 40 MG TABLET PO SCH (22:05)
[2019-12-16] MEDS: LEVOTHYROXINE 50 MCG TABLET PO SCH (06:54)
[2019-12-16] MEDS: INSULIN REGULAR 100 UNIT/ML SUBCUT SCH ×4 (07:43→22:39)
[2019-12-16] MEDS: metOLazone 5 MG TABLET PO SCH (09:03)
[2019-12-16] MEDS: SODIUM BICARBONATE 650 MG TABLET PO SCH ×2 (09:03→22:26)
[2019-12-16] MEDS: amLODIPine 2.5 MG TABLET PO SCH (09:03)
[2019-12-16] MEDS: DOCUSATE/SENNA 50-8.6 MG TABLET PO SCH ×2 (09:03→22:26)
[2019-12-16] MEDS: HEPARIN 5,000 UNIT/1 ML VIAL SUBCUT SCH ×2 (09:03→22:26)
[2019-12-16] MEDS: OMEGA 3 ACID ETHYL ESTERS 1 GM CAPSULE PO SCH ×2 (09:03→22:26)
[2019-12-16] MEDS: TORSEMIDE 20 MG TABLET PO SCH (09:04)
[2019-12-16] MEDS: MULTIVITAMIN (CENTRUM) TABLET PO SCH (09:04)
[2019-12-16] MEDS: METOPROLOL SUCCINATE XL 50 MG TABLET PO SCH (09:04)
[2019-12-16] MEDS: PANTOPRAZOLE 40 MG TABLET PO SCH (09:04)
[2019-12-16] MEDS: FENOFIBRATE 145 MG TABLET PO SCH (09:04)
[2019-12-16] MEDS: GABAPENTIN 300 MG CAPSULE PO SCH ×2 (09:04→18:41)
[2019-12-16] MEDS: ASPIRIN EC 81 MG TABLET PO SCH (09:04)
[2019-12-16] MEDS: HYDROmorphone 2 MG/1 ML VIAL IV PRN ×3 (11:17→22:23)
[2019-12-16] MEDS: traZODone 50 MG TABLET PO PRN (22:25)
[2019-12-16] MEDS: SIMVASTATIN 40 MG TABLET PO SCH (22:39)
[2019-12-17 05:09] LABS: Basophils # 0.1 10*3/uL (0.0-0.2); Basophils % 0.7 % (0.0-0.8); Eosinophils # 0.9 10*3/uL (0.0-0.87); Eosinophils % 6.3 % (0.00-10.9); Hematocrit 30.6 VOL% (42.0-52.0); Hemoglobin 9.7 GM/DL (14.0-18.0); Immature Granulocytes % 1.4 %; Lymphocytes # 1.7 10*3/uL (1.4-4.0); Lymphocytes % 11.9 % (21.2-54.2); Mean Corpuscular HGB Conc 31.7 GM/DL (32-36); Mean Corpuscular Volume 94.4 FL (87-102); Mean Platelet Volume 10.2 FL (9.6-12.0); Monocytes % 9.3 % (1.7-12.7); Neutrophils % 70.4 % (38.7-73.9); Platelet Count 311 T/CUMM (130-400); Red Blood Count 3.24 MC/CUMM (3.8-5.5); Red Cell Distribution Width 14.7 % (9.3-17.3); White Blood Count 14.1 T/CUMM (4-12)
[2019-12-17 05:43] LABS: Calcium 6.8 MG/DL (8.5-10.1); Osmolality,Calculated 275.4 MOS/KG (273-304)
[2019-12-17] MEDS: HYDROmorphone 2 MG/1 ML VIAL IV PRN ×4 (05:56→22:53)
[2019-12-17] MEDS: LEVOTHYROXINE 50 MCG TABLET PO SCH (05:57)
[2019-12-17] MEDS: INSULIN REGULAR 100 UNIT/ML SUBCUT SCH ×4 (07:47→22:06)
[2019-12-17] MEDS: SODIUM BICARBONATE 650 MG TABLET PO SCH ×2 (08:22→20:07)
[2019-12-17] MEDS: DOCUSATE/SENNA 50-8.6 MG TABLET PO SCH ×2 (08:22→20:07)
[2019-12-17] MEDS: TORSEMIDE 20 MG TABLET PO SCH (08:23)
[2019-12-17] MEDS: ASPIRIN EC 81 MG TABLET PO SCH (08:24)
[2019-12-17] MEDS: amLODIPine 2.5 MG TABLET PO SCH (08:24)
[2019-12-17] MEDS: MULTIVITAMIN (CENTRUM) TABLET PO SCH (08:24)
[2019-12-17] MEDS: METOPROLOL SUCCINATE XL 50 MG TABLET PO SCH (08:24)
[2019-12-17] MEDS: OMEGA 3 ACID ETHYL ESTERS 1 GM CAPSULE PO SCH ×2 (08:24→20:07)
[2019-12-17] MEDS: GABAPENTIN 300 MG CAPSULE PO SCH ×3 (08:24→19:06)
[2019-12-17] MEDS: PANTOPRAZOLE 40 MG TABLET PO SCH (08:24)
[2019-12-17] MEDS: metOLazone 5 MG TABLET PO SCH (08:24)
[2019-12-17] MEDS: HEPARIN 5,000 UNIT/1 ML VIAL SUBCUT SCH ×2 (08:24→20:08)
[2019-12-17] MEDS: FENOFIBRATE 145 MG TABLET PO SCH (08:24)
[2019-12-17] MEDS ORDERED: ceFAZolin 1,000 MG in SYRINGE 1 EACH IV ONE (08:30)
[2019-12-17] MEDS: SIMVASTATIN 40 MG TABLET PO SCH (20:07)
[2019-12-18] MEDS: HYDROmorphone 2 MG/1 ML VIAL IV PRN ×4 (03:48→19:41)
[2019-12-18] MEDS ORDERED: ceFAZolin 1,000 MG in SYRINGE 1 EACH IV ONE (06:00)
[2019-12-18] MEDS: LEVOTHYROXINE 50 MCG TABLET PO SCH (06:18)
[2019-12-18] MEDS: INSULIN REGULAR 100 UNIT/ML SUBCUT SCH ×4 (09:20→20:40)
[2019-12-18] MEDS: amLODIPine 2.5 MG TABLET PO SCH (09:42)
[2019-12-18] MEDS: METOPROLOL SUCCINATE XL 50 MG TABLET PO SCH (09:42)
[2019-12-18] MEDS ORDERED: LIDOCAINE 1%/EPI INJ 20 ML VIAL ONE (10:13)
[2019-12-18] MEDS ORDERED: BUPIVACAINE MPF 0.25% 30 ML VIAL ONE (10:14)
[2019-12-18] MEDS ORDERED: DEXTROSE 50% 25 GM/50 ML VIAL IV ONE (10:25)
[2019-12-18] MEDS ORDERED: SODIUM CHLORIDE 0.9% 250 ML IV SCH (10:30)
[2019-12-18] MEDS ORDERED: LIDOCAINE 2% 5 ML VIAL ONE (11:22)
[2019-12-18] MEDS ORDERED: MIDAZOLAM 2 MG/2 ML VIAL ONE (11:23)
[2019-12-18] MEDS ORDERED: KETAMINE 500 MG/10 ML VIAL ONE (11:23)
[2019-12-18] MEDS ORDERED: fentaNYL 100 MCG/2 ML VIAL ONE (11:23)
[2019-12-18] MEDS ORDERED: DEXMEDETOMIDINE 200 MCG/2 ML VIAL ONE (11:23)
[2019-12-18] MEDS ORDERED: SODIUM CHLORIDE 0.9% 250 ML IV ONE (11:23)
[2019-12-18] MEDS: HEPARIN 5,000 UNIT/1 ML VIAL SUBCUT SCH ×2 (12:44→21:15)
[2019-12-18] MEDS: OMEGA 3 ACID ETHYL ESTERS 1 GM CAPSULE PO SCH ×2 (12:45→21:16)
[2019-12-18] MEDS: DOCUSATE/SENNA 50-8.6 MG TABLET PO SCH ×2 (12:46→21:16)
[2019-12-18] MEDS: SODIUM BICARBONATE 650 MG TABLET PO SCH ×2 (12:46→21:16)
[2019-12-18] MEDS: GABAPENTIN 300 MG CAPSULE PO SCH ×3 (15:10→18:40)
[2019-12-18] MEDS: TORSEMIDE 20 MG TABLET PO SCH (16:28)
[2019-12-18] MEDS: MULTIVITAMIN (CENTRUM) TABLET PO SCH (16:28)
[2019-12-18] MEDS: FENOFIBRATE 145 MG TABLET PO SCH (16:28)
[2019-12-18] MEDS: metOLazone 5 MG TABLET PO SCH (16:28)
[2019-12-18] MEDS: ASPIRIN EC 81 MG TABLET PO SCH (16:28)
[2019-12-18] MEDS: PANTOPRAZOLE 40 MG TABLET PO SCH (16:29)
[2019-12-18] MEDS ORDERED: SIMETHICONE CHEW 80 MG TABLET PO PRN (19:09)
[2019-12-18] MEDS: SIMVASTATIN 40 MG TABLET PO SCH (21:16)
[2019-12-19] MEDS: HYDROmorphone 2 MG/1 ML VIAL IV PRN (00:53)
[2019-12-19 05:06] LABS: Basophils # 0.1 10*3/uL (0.0-0.2); Basophils % 0.6 % (0.0-0.8); Eosinophils # 0.8 10*3/uL (0.0-0.87); Eosinophils % 5.7 % (0.00-10.9); Hematocrit 31.7 VOL% (42.0-52.0); Immature Granulocytes % 1.2 %; Immature Granulocytes Absolute 0.16 #; Lymphocytes # 1.6 10*3/uL (1.4-4.0); Lymphocytes % 11.6 % (21.2-54.2); Mean Corpuscular HGB Conc 31.5 GM/DL (32-36); Mean Corpuscular Volume 94.9 FL (87-102); Mean Platelet Volume 10.3 FL (9.6-12.0); Monocytes % 10.5 % (1.7-12.7); Neutrophils % 70.4 % (38.7-73.9); Platelet Count 323 T/CUMM (130-400); Red Blood Count 3.34 MC/CUMM (3.8-5.5); Red Cell Distribution Width 15.1 % (9.3-17.3); White Blood Count 13.6 T/CUMM (4-12)
[2019-12-19 05:28] LABS: Calcium 7.2 MG/DL (8.5-10.1); Osmolality,Calculated 280.8 MOS/KG (273-304)
[2019-12-19] MEDS: LEVOTHYROXINE 50 MCG TABLET PO SCH (06:05)
[2019-12-19] MEDS: INSULIN REGULAR 100 UNIT/ML SUBCUT SCH ×2 (07:22→10:57)
[2019-12-19] MEDS: SODIUM BICARBONATE 650 MG TABLET PO SCH (08:30)
[2019-12-19] MEDS: METOPROLOL SUCCINATE XL 50 MG TABLET PO SCH (08:30)
[2019-12-19] MEDS: PANTOPRAZOLE 40 MG TABLET PO SCH (08:30)
[2019-12-19] MEDS: TORSEMIDE 20 MG TABLET PO SCH (08:30)
[2019-12-19] MEDS: OMEGA 3 ACID ETHYL ESTERS 1 GM CAPSULE PO SCH (08:30)
[2019-12-19] MEDS: metOLazone 5 MG TABLET PO SCH (08:31)
[2019-12-19] MEDS: DOCUSATE/SENNA 50-8.6 MG TABLET PO SCH (08:31)
[2019-12-19] MEDS: FENOFIBRATE 145 MG TABLET PO SCH (08:31)
[2019-12-19] MEDS: MULTIVITAMIN (CENTRUM) TABLET PO SCH (08:31)
[2019-12-19] MEDS: amLODIPine 2.5 MG TABLET PO SCH (08:31)
[2019-12-19] MEDS: GABAPENTIN 300 MG CAPSULE PO SCH (08:31)
[2019-12-19] MEDS: ASPIRIN EC 81 MG TABLET PO SCH (08:31)
[2019-12-19] MEDS: HEPARIN 5,000 UNIT/1 ML VIAL SUBCUT SCH (08:32)
[2019-12-19 14:01] VITALS: BP 164/90
== END 2019-12-19 16:11 | disposition home or self-care (01) | DRG 673 ==
LOC: SUATTDRO 15:57 → N.5E 15:57
PROVIDERS: ADMIT Internal Medicine; ATTEND Internal Medicine

== ENCOUNTER 2020-11-07 18:49 | Inpatient (IN) ==
[2020-11-07] MEDS ORDERED: SODIUM CHLORIDE 0.9% 500 ML IV STA (19:15)
[2020-11-07] MEDS ORDERED: ACETAMINOPHEN 325 MG TABLET PO ONE (19:16)
[2020-11-07] MEDS ORDERED: PIPERACILLIN/TAZOBACTAM 3,375 MG in SODIUM CHLORIDE 0.9% 100 ML IV STA (19:16)
[2020-11-07 19:38] LABS: INR 1.8; PT Patient Result 18.3 SECS (9.8-11.9)
[2020-11-07 19:48] LABS: Basophils # 0.1 10*3/uL (0.0-0.2); Basophils % 0.2 % (0.0-0.8); Eosinophils # 0.1 10*3/uL (0.0-0.87); Eosinophils % 0.2 % (0.00-10.9); Hematocrit 23.1 VOL% (42.0-52.0); Hemoglobin 7.4 GM/DL (14.0-18.0); Immature Granulocytes % 3.3 %; Immature Granulocytes Absolute 0.72 #; Lymphocytes # 0.7 10*3/uL (1.4-4.0); Lymphocytes % 3.3 % (21.2-54.2); Mean Corpuscular Volume 99.1 FL (87-102); Monocytes % 2.5 % (1.7-12.7); Neutrophils % 90.5 % (38.7-73.9); Red Blood Count 2.33 MC/CUMM (3.8-5.5); Red Cell Distribution Width 15.7 % (9.3-17.3)
[2020-11-07 19:52] LABS: Platelet Count 26 T/CUMM (130-400)
[2020-11-07] MEDS ORDERED: DEXTROSE 50% 25 GM/50 ML VIAL IV PRN (19:52)
[2020-11-07] MEDS ORDERED: GLUCAGON 1 MG VIAL IM PRN ×2 (19:52)
[2020-11-07 19:59] LABS: Alanine Aminotransferase < 6 U/L (16-61); Albumin 2.1 G/DL (3.4-5.0); Alkaline Phosphatase 171 U/L (45-117); Aspartate Amino Transferase 17 U/L (0-37); Blood Urea Nitrogen 25 MG/DL (7-18); Calcium 7.9 MG/DL (8.5-10.1); Estimated Glom Filtration Rate 8 ML/MIN; Glucose 85 MG/DL (74-106); Osmolality,Calculated 260.9 MOS/KG (273-304); Total Protein 7.4 G/DL (6.4-8.3)
[2020-11-07 20:38] LABS: Amylase 13 U/L (25-115)
[2020-11-07] MEDS: ONDANSETRON 4 MG/2 ML VIAL IV PRN (23:37)
[2020-11-08] MEDS ORDERED: VANCOMYCIN INJ 1,250 MG in SODIUM CHLORIDE 0.9% 250 ML IV ONE (01:00)
[2020-11-08] MEDS: INSULIN LISPRO 100 UNIT/ML SUBCUT SCH ×5 (01:01→21:48)
[2020-11-08] MEDS: ACETAMINOPHEN 325 MG TABLET PO PRN (01:05)
[2020-11-08] MEDS: DEXTROSE 50% 25 GM/50 ML VIAL IV PRN ×2 (03:20→21:45)
[2020-11-08 07:03] LABS: Alanine Aminotransferase < 6 U/L (16-61); Albumin 1.9 G/DL (3.4-5.0); Alkaline Phosphatase 250 U/L (45-117); Aspartate Amino Transferase 22 U/L (0-37); Blood Urea Nitrogen 30 MG/DL (7-18); Calcium 8.2 MG/DL (8.5-10.1); Estimated Glom Filtration Rate 9 ML/MIN; Glucose 96 MG/DL (74-106); Osmolality,Calculated 262.1 MOS/KG (273-304); Total Protein 7.4 G/DL (6.4-8.3)
[2020-11-08] MEDS: ONDANSETRON 4 MG/2 ML VIAL IV PRN (07:08)
[2020-11-08 07:17] LABS: Ovalocytes Slight; Platelet Estimate Decreased; Polychromasia Slight
[2020-11-08] MEDS: PIPERACILLIN/TAZOBACTAM 3,375 MG in SODIUM CHLORIDE 0.9% 100 ML IV SCH ×2 (08:25→21:49)
[2020-11-08 08:26] LABS: Hemoglobin A1C 5.7 % (4.2-6.3)
[2020-11-08 08:31] LABS: Band Neutrophils 20 % (0-10); Lymphocytes 3 % (20-55); Metamyelocytes 10 %; Myelocytes 4 %; Segmented Neutrophils 59 % (50-85)
[2020-11-08 08:32] LABS: Anisocytosis 1+; Microcytosis 1+
[2020-11-08 09:00] LABS: Basophils # 0.1 10*3/uL (0.0-0.2); Basophils % 0.4 % (0.0-0.8); Eosinophils # 0.1 10*3/uL (0.0-0.87); Eosinophils % 0.4 % (0.00-10.9); Hematocrit 29.1 VOL% (42.0-52.0); Hemoglobin 9.1 GM/DL (14.0-18.0); Immature Granulocytes % 1.2 %; Immature Granulocytes Absolute 0.28 #; Lymphocytes # 0.7 10*3/uL (1.4-4.0); Lymphocytes % 3.1 % (21.2-54.2); Mean Corpuscular HGB Conc 31.3 GM/DL (32-36); Mean Corpuscular Volume 101.7 FL (87-102); Monocytes % 2.3 % (1.7-12.7); NRBC # 0.02 10*3/uL; Neutrophils % 92.6 % (38.7-73.9); Red Blood Count 2.86 MC/CUMM (3.8-5.5); Red Cell Distribution Width 16.1 % (9.3-17.3); White Blood Count 22.4 T/CUMM (4-12)
[2020-11-08 09:03] LABS: Platelet Count 18 T/CUMM (130-400)
[2020-11-08] MEDS: PANTOPRAZOLE 40 MG VIAL IV SCH (09:21)
[2020-11-08 12:22] LABS: White Blood Count 22.1 T/CUMM (4-12)
[2020-11-08 12:23] LABS: Total Cells Counted 100
[2020-11-08 12:24] LABS: Platelet Estimate Decreased
[2020-11-08 12:43] LABS: Band Neutrophils 6 % (0-10); Lymphocytes 2 % (20-55); Segmented Neutrophils 90 % (50-85); Total Cells Counted 100
[2020-11-08] MEDS ORDERED: BUPIVACAINE MPF 0.25% 30 ML VIAL ONE (12:48)
[2020-11-08] MEDS ORDERED: TISSUE ADHESIVE 1 EACH APPLICATOR TOP ONE (12:48)
[2020-11-08] MEDS ORDERED: LIDOCAINE 1% 20 ML VIAL ONE (12:49)
[2020-11-08] MEDS ORDERED: HEPARIN 10,000 UNIT/10 ML VIAL IV SCH (13:15)
[2020-11-08] MEDS ORDERED: VANCOMYCIN INJ 500 MG in SODIUM CHLORIDE 0.9% 100 ML IV PRN (17:00)
[2020-11-09 06:25] LABS: INR 2.4; PT Patient Result 24.5 SECS (9.8-11.9); Partial Thromboplastin Time 61.5 SECS (23.9-33.8)
[2020-11-09 06:26] LABS: Basophils # 0.1 10*3/uL (0.0-0.2); Basophils % 0.4 % (0.0-0.8); Eosinophils % 0.1 % (0.00-10.9); Hematocrit 26.6 VOL% (42.0-52.0); Hemoglobin 8.2 GM/DL (14.0-18.0); Immature Granulocytes % 3.7 %; Lymphocytes # 0.9 10*3/uL (1.4-4.0); Lymphocytes % 3.8 % (21.2-54.2); Mean Corpuscular HGB Conc 30.8 GM/DL (32-36); Mean Corpuscular Volume 101.5 FL (87-102); Mean Platelet Volume 13.7 FL (9.6-12.0); Monocytes % 4.7 % (1.7-12.7); Neutrophils % 87.3 % (38.7-73.9); Red Blood Count 2.62 MC/CUMM (3.8-5.5); Red Cell Distribution Width 15.9 % (9.3-17.3); White Blood Count 24.6 T/CUMM (4-12)
[2020-11-09 06:36] LABS: Calcium 8.6 MG/DL (8.5-10.1); Osmolality,Calculated 276.4 MOS/KG (273-304)
[2020-11-09 06:47] LABS: Platelet Count 6 T/CUMM (130-400)
[2020-11-09] MEDS ORDERED: SODIUM CHLORIDE 0.9% 1,000 ML IV PRN (08:04)
[2020-11-09] MEDS: INSULIN LISPRO 100 UNIT/ML SUBCUT SCH ×4 (08:22→21:42)
[2020-11-09] MEDS: ACETAMINOPHEN 325 MG TABLET PO PRN ×2 (08:59→16:00)
[2020-11-09] MEDS: PIPERACILLIN/TAZOBACTAM 3,375 MG in SODIUM CHLORIDE 0.9% 100 ML IV SCH ×2 (09:04→21:11)
[2020-11-09] MEDS ORDERED: PHYTONADIONE 5 MG/5 ML ORAL.SYR PO ONE (11:35)
[2020-11-09] MEDS: PANTOPRAZOLE 40 MG VIAL IV SCH (13:55)
[2020-11-09] MEDS: HALOPERIDOL 5 MG/ML AMP IV PRN (21:11)
[2020-11-10] MEDS ORDERED: SODIUM CHLORIDE 0.9% 250 ML IV ONE ×2 (00:01→00:51)
[2020-11-10 07:10] LABS: Basophils % 0.2 % (0.0-0.8); Eosinophils # 0.2 10*3/uL (0.0-0.87); Eosinophils % 0.8 % (0.00-10.9); Hematocrit 24.3 VOL% (42.0-52.0); Hemoglobin 7.9 GM/DL (14.0-18.0); Immature Granulocytes % 6.2 %; Immature Granulocytes Absolute 1.13 #; Lymphocytes # 1.4 10*3/uL (1.4-4.0); Lymphocytes % 7.7 % (21.2-54.2); Mean Corpuscular HGB Conc 32.5 GM/DL (32-36); Monocytes % 7.3 % (1.7-12.7); Neutrophils % 77.8 % (38.7-73.9); Red Blood Count 2.53 MC/CUMM (3.8-5.5); Red Cell Distribution Width 15.9 % (9.3-17.3); White Blood Count 18.3 T/CUMM (4-12)
[2020-11-10 07:18] LABS: INR 1.6; PT Patient Result 16.5 SECS (9.8-11.9); Partial Thromboplastin Time 48.3 SECS (23.9-33.8)
[2020-11-10 07:25] LABS: Platelet Count 4 T/CUMM (130-400)
[2020-11-10 07:38] LABS: Eosinophils 1 % (0-10); Hypochromasia 2+; Lymphocytes 5 % (20-55); Microcytosis 1+; Platelet Estimate Decreased; Segmented Neutrophils 88 % (50-85); Total Cells Counted 100
[2020-11-10] MEDS ORDERED: IMMUNE GLOBULIN 10% 20 GM, IMMUNE GLOBULIN 10% 5 GM in PREMIX 1 EACH IV ONE (08:56)
[2020-11-10] MEDS ORDERED: SODIUM CHLORIDE 0.9% 1,000 ML IV PRN (08:56)
[2020-11-10] MEDS: PANTOPRAZOLE 40 MG VIAL IV SCH (08:58)
[2020-11-10] MEDS: PIPERACILLIN/TAZOBACTAM 3,375 MG in SODIUM CHLORIDE 0.9% 100 ML IV SCH (08:58)
[2020-11-10] MEDS: HALOPERIDOL 5 MG/ML AMP IV PRN (08:58)
[2020-11-10] MEDS: ACETAMINOPHEN 325 MG TABLET PO PRN (09:00)
[2020-11-10] MEDS: INSULIN LISPRO 100 UNIT/ML SUBCUT SCH ×4 (09:32→21:21)
[2020-11-10] MEDS ORDERED: HALOPERIDOL 5 MG/ML AMP IM PRN (15:00)
[2020-11-10] MEDS: MEROPENEM 500 MG in SODIUM CHLORIDE 0.9% 100 ML IV SCH (17:15)
[2020-11-11 08:32] LABS: Basophils % 0.2 % (0.0-0.8); Eosinophils # 0.2 10*3/uL (0.0-0.87); Eosinophils % 0.8 % (0.00-10.9); Hematocrit 24.6 VOL% (42.0-52.0); Hemoglobin 8.1 GM/DL (14.0-18.0); Immature Granulocytes % 6.4 %; Immature Granulocytes Absolute 1.27 #; Lymphocytes # 1.4 10*3/uL (1.4-4.0); Lymphocytes % 7.2 % (21.2-54.2); Mean Corpuscular HGB Conc 32.9 GM/DL (32-36); Mean Corpuscular Volume 94.3 FL (87-102); NRBC # 0.03 10*3/uL; Neutrophils % 75.4 % (38.7-73.9); Red Blood Count 2.61 MC/CUMM (3.8-5.5); Red Cell Distribution Width 15.9 % (9.3-17.3); White Blood Count 19.7 T/CUMM (4-12)
[2020-11-11 08:34] LABS: Platelet Count 5 T/CUMM (130-400)
[2020-11-11 08:47] LABS: INR 1.4; PT Patient Result 14.9 SECS (9.8-11.9); Partial Thromboplastin Time 37.3 SECS (23.9-33.8)
[2020-11-11] MEDS: INSULIN LISPRO 100 UNIT/ML SUBCUT SCH ×4 (08:51→23:06)
[2020-11-11 08:53] LABS: Lymphocytes 9 % (20-55); Segmented Neutrophils 81 % (50-85); Total Cells Counted 100
[2020-11-11 08:54] LABS: Hypochromasia 1+; Microcytosis 1+; Platelet Estimate Decreased
[2020-11-11 08:58] LABS: Calcium 8.2 MG/DL (8.5-10.1); Osmolality,Calculated 283.5 MOS/KG (273-304)
[2020-11-11 09:20] LABS: Basophils % 0.2 % (0.0-0.8); Eosinophils # 0.2 10*3/uL (0.0-0.87); Eosinophils % 0.8 % (0.00-10.9); Hematocrit 24.6 VOL% (42.0-52.0); Hemoglobin 8.1 GM/DL (14.0-18.0); Immature Granulocytes % 6.4 %; Immature Granulocytes Absolute 1.27 #; Lymphocytes # 1.4 10*3/uL (1.4-4.0); Lymphocytes % 7.2 % (21.2-54.2); Mean Corpuscular HGB Conc 32.9 GM/DL (32-36); Mean Corpuscular Volume 94.3 FL (87-102); NRBC # 0.03 10*3/uL; Neutrophils % 75.4 % (38.7-73.9); Red Blood Count 2.61 MC/CUMM (3.8-5.5); Red Cell Distribution Width 15.9 % (9.3-17.3); White Blood Count 19.7 T/CUMM (4-12)
[2020-11-11 09:21] LABS: Platelet Count 5 T/CUMM (130-400)
[2020-11-11 09:22] LABS: Hypochromasia 1+; Microcytosis 1+; Platelet Estimate Decreased
[2020-11-11] MEDS ORDERED: IMMUNE GLOBULIN 10% 20 GM, IMMUNE GLOBULIN 10% 10 GM in PREMIX 1 EACH IV ONE (10:00)
[2020-11-11 11:17] LABS: Lymphocytes 9 % (20-55); Segmented Neutrophils 81 % (50-85); Total Cells Counted 100
[2020-11-11] MEDS: PANTOPRAZOLE 40 MG VIAL IV SCH (13:20)
[2020-11-11] MEDS: ACETAMINOPHEN 325 MG TABLET PO PRN ×2 (14:36→21:53)
[2020-11-11] MEDS: predniSONE 50 MG TABLET PO SCH (15:34)
[2020-11-11] MEDS: MEROPENEM 500 MG in SODIUM CHLORIDE 0.9% 100 ML IV SCH (19:01)
[2020-11-12] MEDS: ACETAMINOPHEN 325 MG TABLET PO PRN ×3 (01:27→22:48)
[2020-11-12 07:52] LABS: Basophils % 0.1 % (0.0-0.8); Eosinophils # 0.1 10*3/uL (0.0-0.87); Eosinophils % 0.2 % (0.00-10.9); Hematocrit 25.4 VOL% (42.0-52.0); Hemoglobin 8.5 GM/DL (14.0-18.0); Immature Granulocytes % 8.8 %; Immature Granulocytes Absolute 2.39 #; Lymphocytes # 2.3 10*3/uL (1.4-4.0); Lymphocytes % 8.6 % (21.2-54.2); Mean Corpuscular HGB Conc 33.5 GM/DL (32-36); Monocytes % 5.3 % (1.7-12.7); NRBC # 0.08 10*3/uL; Red Blood Count 2.76 MC/CUMM (3.8-5.5); Red Cell Distribution Width 15.8 % (9.3-17.3)
[2020-11-12 07:55] LABS: Platelet Count 11 T/CUMM (130-400)
[2020-11-12 08:01] LABS: INR 1.5; PT Patient Result 15.8 SECS (9.8-11.9)
[2020-11-12 08:07] LABS: Calcium 7.8 MG/DL (8.5-10.1); Osmolality,Calculated 277.8 MOS/KG (273-304)
[2020-11-12 08:10] LABS: Band Neutrophils 3 % (0-10); Lymphocytes 6 % (20-55); Nucleated Red Blood Cells 1 (0-5); Platelet Estimate Decreased; Segmented Neutrophils 86 % (50-85); Total Cells Counted 100
[2020-11-12 08:11] LABS: Hypochromasia 1+; Microcytosis 1+
[2020-11-12] MEDS: INSULIN LISPRO 100 UNIT/ML SUBCUT SCH ×4 (09:17→20:48)
[2020-11-12] MEDS: predniSONE 50 MG TABLET PO SCH (09:25)
[2020-11-12] MEDS: predniSONE 20 MG TABLET PO SCH (09:28)
[2020-11-12] MEDS: PANTOPRAZOLE 40 MG VIAL IV SCH (09:30)
[2020-11-12] MEDS: MEROPENEM 500 MG in SODIUM CHLORIDE 0.9% 100 ML IV SCH (18:12)
[2020-11-13] MEDS: ACETAMINOPHEN 325 MG TABLET PO PRN ×4 (06:32→20:44)
[2020-11-13 08:07] LABS: Basophils # 0.1 10*3/uL (0.0-0.2); Basophils % 0.2 % (0.0-0.8); Hematocrit 24.3 VOL% (42.0-52.0); Hemoglobin 8.1 GM/DL (14.0-18.0); Immature Granulocytes % 9.3 %; Immature Granulocytes Absolute 2.96 #; Lymphocytes # 2.4 10*3/uL (1.4-4.0); Lymphocytes % 7.7 % (21.2-54.2); Mean Corpuscular HGB Conc 33.3 GM/DL (32-36); Mean Corpuscular Volume 90.7 FL (87-102); Monocytes % 4.4 % (1.7-12.7); NRBC # 0.15 10*3/uL; Neutrophils % 78.4 % (38.7-73.9); Red Blood Count 2.68 MC/CUMM (3.8-5.5); Red Cell Distribution Width 15.7 % (9.3-17.3); White Blood Count 31.7 T/CUMM (4-12)
[2020-11-13 08:10] LABS: Platelet Count 21 T/CUMM (130-400)
[2020-11-13 08:15] LABS: INR 1.5; PT Patient Result 15.4 SECS (9.8-11.9); Partial Thromboplastin Time 36.9 SECS (23.9-33.8)
[2020-11-13 08:28] LABS: Hypochromasia 2+; Lymphocytes 7 % (20-55); Segmented Neutrophils 90 % (50-85); Total Cells Counted 100
[2020-11-13 08:29] LABS: Microcytosis 1+; Platelet Estimate Decreased; Target Cells Slight
[2020-11-13 08:30] LABS: Alanine Aminotransferase < 6 U/L (16-61); Albumin 1.6 G/DL (3.4-5.0); Alkaline Phosphatase 201 U/L (45-117); Aspartate Amino Transferase 16 U/L (0-37); Blood Urea Nitrogen 71 MG/DL (7-18); Calcium 7.9 MG/DL (8.5-10.1); Estimated Glom Filtration Rate 12 ML/MIN; Glucose 257 MG/DL (74-106); Osmolality,Calculated 286.1 MOS/KG (273-304); Total Protein 6.8 G/DL (6.4-8.3)
[2020-11-13] MEDS: predniSONE 20 MG TABLET PO SCH (08:52)
[2020-11-13] MEDS: INSULIN LISPRO 100 UNIT/ML SUBCUT SCH ×4 (09:25→20:44)
[2020-11-13] MEDS: PANTOPRAZOLE 40 MG VIAL IV SCH (11:53)
[2020-11-13] MEDS: MEROPENEM 500 MG in SODIUM CHLORIDE 0.9% 100 ML IV SCH (17:09)
[2020-11-14] MEDS: INSULIN LISPRO 100 UNIT/ML SUBCUT SCH ×5 (04:28→20:56)
[2020-11-14] MEDS: ACETAMINOPHEN 325 MG TABLET PO PRN ×3 (04:28→20:08)
[2020-11-14 05:45] LABS: Basophils # 0.1 10*3/uL (0.0-0.2); Basophils % 0.2 % (0.0-0.8); Hemoglobin 8.1 GM/DL (14.0-18.0); Immature Granulocytes % 7.1 %; Immature Granulocytes Absolute 2.03 #; Lymphocytes # 1.7 10*3/uL (1.4-4.0); Lymphocytes % 5.8 % (21.2-54.2); Mean Corpuscular HGB Conc 33.8 GM/DL (32-36); Mean Corpuscular Volume 90.9 FL (87-102); Monocytes % 3.3 % (1.7-12.7); NRBC # 0.08 10*3/uL; Neutrophils % 83.6 % (38.7-73.9); Red Blood Count 2.64 MC/CUMM (3.8-5.5); Red Cell Distribution Width 15.9 % (9.3-17.3); White Blood Count 28.6 T/CUMM (4-12)
[2020-11-14 06:08] LABS: Albumin 1.5 G/DL (3.4-5.0); Bilirubin,Total 3.8 MG/DL (0.2-1.0); Calcium 7.6 MG/DL (8.5-10.1); Osmolality,Calculated 284.2 MOS/KG (273-304); Total Protein 6.4 G/DL (6.4-8.3)
[2020-11-14 06:30] LABS: Platelet Count 26 T/CUMM (130-400)
[2020-11-14 06:47] LABS: Anisocytosis 2+; Band Neutrophils 12 % (0-10); Lymphocytes 5 % (20-55); Metamyelocytes 3 %; Nucleated Red Blood Cells 2 (0-5); Platelet Estimate Decreased; Segmented Neutrophils 78 % (50-85); Total Cells Counted 100
[2020-11-14 06:48] LABS: Hypochromasia 1+; Macrocytosis 1+; Target Cells Few
[2020-11-14] MEDS: predniSONE 20 MG TABLET PO SCH (08:49)
[2020-11-14] MEDS: PANTOPRAZOLE 40 MG VIAL IV SCH (08:50)
[2020-11-14] MEDS: MEROPENEM 500 MG in SODIUM CHLORIDE 0.9% 100 ML IV SCH (16:21)
[2020-11-15] MEDS: ACETAMINOPHEN 325 MG TABLET PO PRN ×2 (01:09→23:38)
[2020-11-15 06:50] LABS: Basophils # 0.1 10*3/uL (0.0-0.2); Basophils % 0.2 % (0.0-0.8); Hematocrit 26.3 VOL% (42.0-52.0); Hemoglobin 8.8 GM/DL (14.0-18.0); Immature Granulocytes % 6.1 %; Immature Granulocytes Absolute 1.64 #; Lymphocytes # 1.6 10*3/uL (1.4-4.0); Lymphocytes % 5.9 % (21.2-54.2); Mean Corpuscular HGB Conc 33.5 GM/DL (32-36); Mean Corpuscular Volume 90.7 FL (87-102); Monocytes % 3.3 % (1.7-12.7); NRBC # 0.06 10*3/uL; Neutrophils % 84.5 % (38.7-73.9); Red Cell Distribution Width 16.1 % (9.3-17.3); White Blood Count 27.1 T/CUMM (4-12)
[2020-11-15 06:52] LABS: Platelet Count 37 T/CUMM (130-400)
[2020-11-15 06:54] LABS: Albumin 1.5 G/DL (3.4-5.0); Bilirubin,Total 2.9 MG/DL (0.2-1.0); Calcium 7.4 MG/DL (8.5-10.1); Osmolality,Calculated 289.2 MOS/KG (273-304); Total Protein 6.4 G/DL (6.4-8.3)
[2020-11-15 07:07] LABS: Hypochromasia 1+; Lymphocytes 2 % (20-55); Microcytosis 1+; Ovalocytes Slight; Platelet Estimate Decreased; Segmented Neutrophils 97 % (50-85); Total Cells Counted 100
[2020-11-15] MEDS: INSULIN LISPRO 100 UNIT/ML SUBCUT SCH ×4 (08:40→21:40)
[2020-11-15] MEDS: predniSONE 20 MG TABLET PO SCH (08:40)
[2020-11-15] MEDS: PANTOPRAZOLE 40 MG VIAL IV SCH (08:40)
[2020-11-15] MEDS: MEROPENEM 500 MG in SODIUM CHLORIDE 0.9% 100 ML IV SCH (16:27)
[2020-11-16 05:38] LABS: Basophils % 0.2 % (0.0-0.8); Hematocrit 21.8 VOL% (42.0-52.0); Hemoglobin 7.4 GM/DL (14.0-18.0); Immature Granulocytes % 5.9 %; Immature Granulocytes Absolute 1.55 #; Lymphocytes # 1.3 10*3/uL (1.4-4.0); Lymphocytes % 4.9 % (21.2-54.2); Mean Corpuscular HGB Conc 33.9 GM/DL (32-36); Mean Corpuscular Volume 89.7 FL (87-102); Monocytes % 3.3 % (1.7-12.7); NRBC # 0.03 10*3/uL; Neutrophils % 85.7 % (38.7-73.9); Red Blood Count 2.43 MC/CUMM (3.8-5.5); Red Cell Distribution Width 16.4 % (9.3-17.3); White Blood Count 26.5 T/CUMM (4-12)
[2020-11-16 05:40] LABS: Platelet Count 42 T/CUMM (130-400)
[2020-11-16 06:00] LABS: Albumin 1.5 G/DL (3.4-5.0); Bilirubin,Total 2.4 MG/DL (0.2-1.0); Calcium 7.1 MG/DL (8.5-10.1); Osmolality,Calculated 293.5 MOS/KG (273-304); Total Protein 6.3 G/DL (6.4-8.3)
[2020-11-16 06:49] LABS: Band Neutrophils 1 % (0-10); Hypochromasia 1+; Lymphocytes 3 % (20-55); Macrocytosis Slight; Platelet Estimate Decreased; Segmented Neutrophils 92 % (50-85); Total Cells Counted 100
[2020-11-16] MEDS: predniSONE 20 MG TABLET PO SCH (08:48)
[2020-11-16] MEDS: PANTOPRAZOLE 40 MG VIAL IV SCH (08:48)
[2020-11-16] MEDS: INSULIN LISPRO 100 UNIT/ML SUBCUT SCH ×4 (08:48→21:50)
[2020-11-16] MEDS ORDERED: INSULIN LISPRO 100 UNIT/ML SUBCUT ONE (14:30)
[2020-11-16] MEDS ORDERED: INSULIN LISPRO 100 UNIT/ML SUBCUT SCH (16:30)
[2020-11-16] MEDS: MEROPENEM 500 MG in SODIUM CHLORIDE 0.9% 100 ML IV SCH (16:42)
[2020-11-17] MEDS: ACETAMINOPHEN 325 MG TABLET PO PRN (03:32)
[2020-11-17] MEDS ORDERED: EPOETIN ALFA-EPBX 2,000 UNIT/ML VIAL IV PRN (09:18)
[2020-11-17] MEDS ORDERED: SODIUM CHLORIDE 0.9% 1,000 ML IV PRN (09:19)
[2020-11-17 10:23] LABS: Basophils % 0.1 % (0.0-0.8); Hematocrit 22.2 VOL% (42.0-52.0); Hemoglobin 7.5 GM/DL (14.0-18.0); Immature Granulocytes % 3.6 %; Immature Granulocytes Absolute 0.94 #; Lymphocytes # 1.5 10*3/uL (1.4-4.0); Lymphocytes % 5.7 % (21.2-54.2); Mean Corpuscular HGB Conc 33.8 GM/DL (32-36); Mean Platelet Volume 13.5 FL (9.6-12.0); Monocytes % 2.7 % (1.7-12.7); NRBC # 0.02 10*3/uL; Neutrophils % 87.9 % (38.7-73.9); Platelet Count 55 T/CUMM (130-400); Red Blood Count 2.44 MC/CUMM (3.8-5.5); Red Cell Distribution Width 17.5 % (9.3-17.3); White Blood Count 26.2 T/CUMM (4-12)
[2020-11-17] MEDS: PANTOPRAZOLE 40 MG VIAL IV SCH (10:24)
[2020-11-17] MEDS: predniSONE 20 MG TABLET PO SCH (10:24)
[2020-11-17 10:49] LABS: Band Neutrophils 1 % (0-10); Lymphocytes 5 % (20-55); Segmented Neutrophils 91 % (50-85); Total Cells Counted 100
[2020-11-17 10:50] LABS: Anisocytosis 1+; Hypochromasia 2+; Microcytosis 1+; Platelet Estimate Decreased; Target Cells Slight
[2020-11-17 10:54] LABS: Calcium 6.9 MG/DL (8.5-10.1); Osmolality,Calculated 296.7 MOS/KG (273-304)
[2020-11-17 12:09] VITALS: BP 125/59
[2020-11-17] MEDS: INSULIN LISPRO 100 UNIT/ML SUBCUT SCH ×2 (12:50)
== END 2020-11-17 15:47 | DRG 721 ==
LOC: EDUNIT# → EDBD → N.ED 18:49 → N.EDINP 19:52 → SUATTDRO 19:52 → N.EDINP 22:51 → N.TELES 23:16
PROVIDERS: ADMIT Internal Medicine; ATTEND Internal Medicine